=== PATIENT | female | born 1955 | race Caucasian/White ===

== ENCOUNTER 2016-07-21 01:53 | Inpatient (IN) ==
[2016-07-21 02:28] LABS: ABG Base Excess -1.2 MMOL/L (-2.5-2.5); ABG HCO3 23.2 MMOL/L (20-26); ABG Oxygen Saturation 79.8 % (95-100); ABG PCO2 37.1 MM HG (35-48); ABG PH 7.405 (7.35-7.45); ABG PO2 45.3 MM HG (80-95); ABG TCO2 21.6 MMOL/L (23-27); Allen Test Positive
[2016-07-21] MEDS ORDERED: NITROGLYCERIN SL 0.4 MG TABLET SL STA (02:43)
[2016-07-21] MEDS ORDERED: ONDANSETRON 4 MG/2 ML VIAL IV STA (02:43)
[2016-07-21] MEDS ORDERED: cloNIDine 0.1 MG TABLET PO STA (02:47)
[2016-07-21] MEDS ORDERED: cloNIDine 0.1 MG TABLET ONE (02:48)
[2016-07-21] MEDS ORDERED: ONDANSETRON 4 MG/2 ML VIAL ONE (02:48)
[2016-07-21] MEDS ORDERED: NITROGLYCERIN SL 0.4 MG TABLET SL ONE (02:49)
[2016-07-21 02:53] LABS: Basophils % 0.4 % (0.0-0.8); Eosinophils # 0.2 10*3/uL (0.0-0.87); Eosinophils % 2.1 % (0.00-10.9); Hematocrit 26.2 VOL% (35.7-47.0); Hemoglobin 8.6 GM/DL (12.0-16.0); Immature Granulocytes % 0.9 %; Immature Granulocytes Absolute 0.09 #; Lymphocytes # 1.2 10*3/uL (1.4-4.0); Lymphocytes % 11.7 % (21.3-54.2); Mean Corpuscular HGB Conc 32.8 GM/DL (32-36); Mean Corpuscular Hemoglobin 35 PG (27-34); Mean Corpuscular Volume 105.2 FL (87-102); Monocytes # 0.6 10*3/uL (0.11-0.8); Neutrophils # 8.1 10*3/uL (1.4-7.4); Neutrophils % 78.9 % (38.7-73.9); Platelet Count 103 T/CUMM (130-400); Red Blood Count 2.49 MC/CUMM (3.8-5.5); White Blood Count 10.2 T/CUMM (4-12)
[2016-07-21 03:04] LABS: Alanine Aminotransferase 26 U/L (13-56); Albumin 3.8 G/DL (3.4-5.0); Alkaline Phosphatase 49 U/L (45-117); Aspartate Amino Transferase 19 U/L (0-37); Blood Urea Nitrogen 60 MG/DL (7-18); Calcium 6.9 MG/DL (8.5-10.1); Glucose 101 MG/DL (74-106); Osmolality,Calculated 289.8 MOS/KG (273-304); Potassium 4.5 MMOL/L (3.5-5.1); Sodium 137 MMOL/L (136-145); Total Protein 6.7 G/DL (6.4-8.3); Troponin I Only < 0.015 NG/ML (0.00-0.045)
--- NOTE | 2016-07-21 03:04 | Emergency Department Note ---
Maximus Sabillon Manpreet, am scribing for, and in the presence of, Nathan Mina MD 02:29. Leopoldo Sabillon Robert M, MD, personally performed the services described in this documentation, ascribed by Myron Stroud in my presence, and it is both accurate and complete . Arrival - Arrival Chief Complaint: Shortness of Breath Stated Complaint: shortness of breath ED Nursing Triage Note: Patient to room via ems. Patient states she went to bed last night short of breath and woke up a 1 am short of breath. She states that she is in renal failure and that she needs dialysis. She states that [place] [facility] . She states she knows today is wednesday but she can't wait till on. Patient also states she needs some nitro on her chest. Mode of Arrival: Stretcher Limitations: No Limitations Source: Patient Time Seen by Provider: 07/21/16 01:57 - History of Present Illness HPI Narrative: Pt is a 61 y/o female with PMHx of CAD, PVD, HTN, COPD, and PNA, who reports to ED with CC of SOB and jaw pain since earlier tonight. Pt states she is on home O2 but it did not help with breathing. Pt denies CP and N/V/D. No other complaints/pains reported to ED. Onset (ago): hour(s) Consistency: constant Severity: moderate Severity scale (1-10): 3 Allergies/Adverse Reactions: Allergies Allergy/AdvReac Type Severity Reaction Status Date / Time Cefaclor [From Ceclor] Allergy ITCHING Verified 07/21/16 02:09 topiramate [From Topamax] AdvReac Agitated Verified 07/21/16 02:09 Home Medications: Home Medications Medication Instructions Recorded Confirmed Type Aspirin [Ecotrin] 81 mg PO DAILY 09/21/14 01/16/16 History Diazepam Tab [Valium Tab] 1 mg PO TID 09/21/14 01/16/16 History Docusate Sodium [Colace] 100 mg PO BID 09/21/14 01/16/16 History Ezetimibe [Zetia] 10 mg PO BEDTIME 09/21/14 01/16/16 History Gabapentin Cap/Tab [Neurontin 600 mg PO BID 09/21/14 01/16/16 History Cap/Tab] Levothyroxine Tab [Synthroid Tab] 250 mcg PO DAILY@0700 09/21/14 01/16/16 History [place]-3 Acid Ethyl Esters [Lovaza] 2 capsule PO BID 09/21/14 01/16/16 History Venlafaxine [Effexor] 75 mg PO DAILY 09/21/14 01/16/16 History HYDROcodone/ACETAMIN 10-325 [[place] 1 tablet PO Q6H 02/06/15 01/16/16 History 10-325] Calcitriol [Rocaltrol] 0.5 mcg PO DAILY #30 capsule 08/22/15 01/16/16 Rx Calcium Acetate [Phoslo] 1,334 mg PO TID W/MEALS #90 capsule 08/22/15 01/16/16 Rx Isosorbide Dinitrate [Isordil] 20 mg PO TID #90 tablet 08/22/15 01/16/16 Rx Insulin Regular Conc U-500 See Protocol SUBCUT .PER PUMP 09/30/15 01/16/16 History [HumuLIN R U-500 (CONCENTRATED)] Ondansetron Tab [Zofran Tab] 4 mg PO BID 09/30/15 01/16/16 History Tizanidine HCl [Zanaflex] 8 mg PO BID 09/30/15 01/16/16 History Rosuvastatin [Crestor] 20 mg PO BEDTIME 10/09/15 01/16/16 History [place] 3 Acid Ethyl Esters [Lovaza] 1 gm PO BID 01/11/16 01/16/16 History Pantoprazole Tab [Protonix Tab] 40 mg PO DAILY #30 tablet 01/13/16 01/16/16 Rx hydrALAZINE TAB [Apresoline Tab] 37.5 mg PO TID 01/16/16 01/16/16 History Carvedilol [Coreg] 25 mg PO BID #60 tablet 01/19/16 Rx Linaclotide [Linzess] 145 mcg PO AC BREAKFAST #30 capsule 01/19/16 Rx NIFEdipine XL TAB [Procardia Xl] 30 mg PO BID #60 tablet 01/19/16 Rx Polyethylene Glycol Powder 17 gm PO DAILY PRN #0 powder 01/19/16 Rx [Miralax] Review of System - Review of System 12 point system: reviewed and no additional remarkable complaints except as stated - Review of System Constitutional: Absent: chills, fever Respiratory: Present: respiratory distress. Absent: cough Cardiovascular: Absent: chest pain Gastrointestinal: Absent: abdominal pain, nausea, vomiting, diarrhea Musculoskeletal: Present: other (Jaw pain). 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), Eye Problem (MENIERES) Endocrine: History of: Diabetes Mellitus (IDDM), Thyroid Disorder (follicular ca ) No history of: Diabetes Mellitus (NIDDM) Rheumatology: History of;: Rheumatoid Arthritis Respiratory: History of: COPD, Pneumonia, Respiratory Problems Renal: History of: Dialysis, Renal Failure Gastrointestinal: History of: Liver Problems (MARINO; reported "esophageal spasms " which responded nitroglycerin), Pancreatitis (X3), GI Problems Hematology: History of: Anemia Other: History of: Cancer (P-RE OVARIAN THYROID) - Surgical History Cardiac Surgeries: Sugical HX of: Cardiac Catheterization (x 3 left pop) HEENT Surgeries: Surgical HX of: Eye Surgery (DIABETIC BLEEDS CATARACTS), Thyroid Surgery, Tonsilectomy & Adenoidectomy Abdominal Surgeries: Surgical HX of: Abdominal Surgery (LIVER BX), Cholecystectomy, Colonoscopy, EGD Reproductive Surgeries: Surgical HX of;: Gynecologic Surgery, Hysterectomy Orthopedic Surgeries: Surgical HX of;: Spinal Surgery (cervical and lumbar surg) - Family History Family History: Reports;: Family Diabetes, Family Heart Disease, Family Hypertension - Social History Smoking Status: Former smoker Frequency of Alcohol Use: None Type of Drug Use: None Exam Vital Signs: Vital Signs Temperature 97.8 F 07/21/16 02:33 Pulse Rate 93 H 07/21/16 02:33 Respiratory Rate 22 07/21/16 02:37 Blood Pressure 173/76 07/21/16 02:33 O2 Sat by Pulse Oximetry 83 L 07/21/16 02:05 - General General appearance: alert, in no apparent distress - Head Head exam: Present: atraumatic, normocephalic, normal inspection - Eye Eye exam: Present: normal appearance, PERRL, EOMI - ENT ENT exam: Present: normal exam, normal oropharynx, mucous membranes moist, TM's normal bilaterally - Neck Neck exam: Present: normal inspection, full ROM, trachea midline. Absent: tenderness - Chest Chest inspection: Present: normal inspection, symmetric chest wall rise - Respiratory Respiratory exam: Present: normal lung sounds bilaterally - Cardiovascular Cardiovascular exam: Present: regular rate, normal rhythm, normal heart sounds. Absent: murmur, rubs, gallop - Abdominal Exam Abdominal exam: Present: soft, normal bowel sounds. Absent: distention, tenderness, guarding - Extremities Exam Extremities exam: Present: normal inspection, full ROM. Absent: tenderness - Back Exam Back exam: Present: normal inspection, full ROM. Absent: tenderness - Neurological Exam Neurological exam: Present: alert, oriented X3, CN II-XII intact, reflexes normal - Psychiatric Psychiatric exam: Present: normal affect, normal mood - Skin Skin exam: Present: warm, dry, intact, normal color. Absent: pallor Course - Reevaluation(s) Reevaluation #1: The patient has recurrent bouts of symptomatic anemia. This appears to be the problem tonight. I will admit her to Dr. Schaeffer and consult Dr. Roche who seems to be her renal physician. Time: 04:11 - Consultations Consultation #1: Dr. Eleonora Elizabeth will admit the patient to Dr. Schaeffer. Time: 04:16 Results - Labs CBC & BMP: 07/21/16 02:19 07/21/16 02:19 Disposition Clinical Impression: Symptomatic anemia, Acute on chronic renal failure, ESRD (end stage renal disease) on dialysis, IDDM (insulin dependent diabetes mellitus), Hypertension Case discussed with: patient Disposition: Still a Patient Condition: Stable Time of Disposition: 04:16
[2016-07-21 03:05] LABS: INR 1.1; PT Patient Result 11.7 SECS
[2016-07-21] MEDS ORDERED: GLUCAGON 1 MG VIAL IM PRN (04:17)
[2016-07-21] MEDS ORDERED: DEXTROSE 50% 25 GM/50 ML VIAL IV PRN (04:17)
[2016-07-21] MEDS ORDERED: ONDANSETRON 4 MG/2 ML VIAL IV PRN (04:17)
[2016-07-21] MEDS ORDERED: ACETAMINOPHEN 325 MG TABLET PO PRN (04:17)
[2016-07-21] MEDS ORDERED: SODIUM CHLORIDE 0.9% 250 ML IV PRN (04:18)
--- NOTE | 2016-07-21 07:28 | XRay Report ---
Referring Physician: Nathan Mina Exam: XR chest 1V portable Date: July 21, 2016 at 1:59 AM Reason: Shortness of breath Comparison: Chest one view portable January 16, 2016 Findings: A right-sided dialysis catheter is again in place. The cardiac silhouette is again enlarged. The interstitial markings are diffusely prominent, and there are hazy opacities throughout both lungs. This is most consistent with pulmonary edema, but pneumonia is not excluded. No pneumothorax is identified, but there is likely minimal bilateral pleural fluid. The osseous structures appear stable with surgical fusion of the cervical spine. Impression: 1. Cardiomegaly. 2. There is diffuse interstitial prominence and hazy opacities throughout both lungs. This is most consistent with pulmonary edema, but pneumonia is not excluded. PROCEDURE INTERPRETED AT [facility] DEPARTMENT OF RADIOLOGY Final Report Signed by: Dr. Da Barrios
[2016-07-21] MEDS: INSULIN LISPRO 100 UNIT/ML SUBCUT SCH ×4 (08:31→20:22)
[2016-07-21] MEDS: PANTOPRAZOLE 40 MG TABLET PO SCH (09:06)
[2016-07-21] MEDS: DOCUSATE SODIUM 100 MG CAPSULE PO SCH ×2 (09:06→20:22)
[2016-07-21] MEDS ORDERED: ALBUTEROL 2.5 MG/3 ML NEB RESP TX ONE (09:43)
--- NOTE | 2016-07-21 09:45 | Internal Med History&Physical ---
Assessment and Plan (1) Acute congestive heart failure Status: Acute Assessment and plan: 61-year-old female admitted to acute care * Acute congestive heart failure. Multifactorial. Related to end-stage renal disease and fluid overload because patient has not been compliant with her fluid intake. She is also anemic. She will get dialysis this morning. * Jaw and neck pain. Will consult cardiology to evaluate. She has been followed by Dr. albrecht * Acute exacerbation of COPD. Patient will be started on nebulizer treatment and will start her on antibiotic * Insulin-dependent diabetes on insulin pump. She will continue her pump at current settings * End-stage renal disease. On dialysis * Dysuria. Will check urinalysis and cultures. * Chronic back pain. Continue treatment * Discussed with patient Current Visit: Yes (2) ESRD (end stage renal disease) on dialysis Status: Chronic Current Visit: Yes (3) Hypertension Status: Chronic Current Visit: Yes Qualifiers: Hypertension type: essential hypertension Qualified Code(s): I10 - Essential (primary) hypertension (4) IDDM (insulin dependent diabetes mellitus) Status: Chronic Current Visit: Yes (5) Acute exacerbation of chronic obstructive airways disease Status: Acute Current Visit: No (6) Anemia Status: Acute Current Visit: No (7) Chest pain Status: Acute Current Visit: No (8) Hypothyroidism Status: Chronic Current Visit: No (9) PAD (peripheral artery disease) Status: Chronic Current Visit: No History of Present Illness Chief complaint: Shortness of breath and jaw pain History of present illness: Ms. Mady Valladares is a 61 year old female with history of multiple medical problems including insulin dependent diabetes on insulin pump, hyperlipidemia, hypertension, coronary artery disease, chronic renal failure on dialysis 3 times a week. She came in early this morning with shortness of breath and pain in her neck going into her jaw. She woke up in the middle of night. She was given a nitroglycerin which helped her symptoms. She denies any chest pain now. She also had a low-grade fever yesterday. She has been drinking more fluids than she should. She denies any nausea vomiting or diarrhea. She denies any fever or chills. She gets extremely short of breath on exertion. Her urine has been foul-smelling. Patient lives alone at home. She is a former smoker Home Medications Medication Instructions Recorded Confirmed Type Aspirin [Ecotrin] 81 mg PO DAILY 09/21/14 07/21/16 History Diazepam Tab [Valium Tab] 1 mg PO TID 09/21/14 07/21/16 History Docusate Sodium [Colace] 100 mg PO BID 09/21/14 07/21/16 History Ezetimibe [Zetia] 10 mg PO BEDTIME 09/21/14 07/21/16 History Gabapentin Cap/Tab [Neurontin 600 mg PO BID 09/21/14 07/21/16 History Cap/Tab] Levothyroxine Tab [Synthroid Tab] 250 mcg PO DAILY@0700 09/21/14 07/21/16 History Venlafaxine [Effexor] 75 mg PO DAILY 09/21/14 07/21/16 History HYDROcodone/ACETAMIN 10-325 [[place] 1 tablet PO Q6H 02/06/15 07/21/16 History 10-325] Calcitriol [Rocaltrol] 0.5 mcg PO DAILY #30 capsule 08/22/15 07/21/16 Rx Calcium Acetate [Phoslo] 1,334 mg PO TID W/MEALS #90 capsule 08/22/15 07/21/16 Rx Insulin Regular Conc U-500 See Protocol SUBCUT .PER PUMP 09/30/15 07/21/16 History [HumuLIN R U-500 (CONCENTRATED)] Ondansetron Tab [Zofran Tab] 4 mg PO BID PRN 09/30/15 07/21/16 History Tizanidine HCl [Zanaflex] 2 mg PO BID 09/30/15 07/21/16 History Rosuvastatin [Crestor] 20 mg PO BEDTIME 10/09/15 07/21/16 History [place] 3 Acid Ethyl Esters [Lovaza] 1 gm PO BID 01/11/16 07/21/16 History hydrALAZINE TAB [Apresoline Tab] 37.5 mg PO TID 01/16/16 07/21/16 History Carvedilol [Coreg] 25 mg PO BID #60 tablet 01/19/16 07/21/16 Rx Linaclotide [Linzess] 145 mcg PO AC BREAKFAST #30 capsule 01/19/16 07/21/16 Rx Amlodipine Besylate 5 mg PO BID 07/21/16 07/21/16 History Isosorbide Dinitrate [Isordil] 20 mg PO BID 07/21/16 07/21/16 History Nitroglycerin [Nitroglycerin SL 0.4 mg SL Q5M PRN 07/21/16 07/21/16 History Tab] Pantoprazole Tab [Protonix Tab] 20 mg PO DAILY 07/21/16 07/21/16 History Allergies Allergy/AdvReac Type Severity Reaction Status Date / Time Cefaclor [From Ceclor] Allergy ITCHING Verified 07/21/16 02:09 topiramate [From Topamax] AdvReac Agitated Verified 07/21/16 02:09 Medical,Surgical,& Family Hx - Medical History Cardio: History of: CAD, Hypertension, PVD Psychological: History of: Depression Neurology: History of: Vertigo (MIENERE's) No history of: Seizures HEENT: History of: 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), Eye Problem (MENIERES) Endocrine: History of: Diabetes Mellitus (IDDM), Thyroid Disorder (follicular ca ) No history of: Diabetes Mellitus (NIDDM) Rheumatology: History of;: Rheumatoid Arthritis Respiratory: History of: COPD, Pneumonia, Respiratory Problems Renal: History of: Dialysis, Renal Failure Gastrointestinal: History of: Liver Problems (MARINO; reported "esophageal spasms " which responded nitroglycerin), Pancreatitis (X3), GI Problems Hematology: History of: Anemia Other: History of: Cancer (P-RE OVARIAN THYROID) - Surgical History Cardiac Surgeries: Sugical HX of: Cardiac Catheterization (x 3 left pop) HEENT Surgeries: Surgical HX of: Eye Surgery (DIABETIC BLEEDS CATARACTS), Thyroid Surgery, Tonsilectomy & Adenoidectomy Abdominal Surgeries: Surgical HX of: Abdominal Surgery (LIVER BX), Cholecystectomy, Colonoscopy, EGD Reproductive Surgeries: Surgical HX of;: Gynecologic Surgery, Hysterectomy Orthopedic Surgeries: Surgical HX of;: Spinal Surgery (cervical and lumbar surg) - Family History Family History: Reports;: Family Diabetes, Family Heart Disease, Family Hypertension - Social History Smoking Status: Former smoker Frequency of Alcohol Use: None Type of Drug Use: None Marital Status: Single Lives With:: Alone Functional capacity: independent ambulation 12 point system: reviewed and no additional remarkable complaints except as stated (As mentioned in HPI) Exam - Constitutional Vitals: Period Temp Pulse Resp BP Sys/Matthews Pulse Ox Last 24 Hr 99.5 F 92-92 22-24 167/63 97 Exam: Examination: GENERAL: NAD. HEENT: PERRLA. EOMI. Mucous membranes are moist. NECK: Neck is supple. No JVD. No carotid bruit. No thyromegaly. CVS: Regular rate and rhythm. S1 and S2 are normal. Dialysis catheter is present in the right upper chest wall RESPIRATORY: Decreased air entry at bases with bilateral rhonchi and few rales ABDOMEN: Soft and nontender. Bowel sounds are present. No hepatosplenomegaly. Obese EXT: 1+ edema. Peripheral pulses are present. SUPPLY CLERK: Patient is awake, alert and oriented to time place and person. Cranial nerves II through XII are grossly intact. Motor strength is 4 over 5 both upper and lower extremities. SKIN: Warm and dry. MSK: No obvious deformity. Results - Labs CBC & BMP: 07/21/16 02:19 07/21/16 02:19 Lab Results: I have reviewed the past 24 hour labs
[2016-07-21] MEDS ORDERED: NITROGLYCERIN SL 0.4 MG TABLET SL PRN (09:51)
[2016-07-21] MEDS ORDERED: ONDANSETRON 4 MG TABLET PO PRN (09:51)
--- NOTE | 2016-07-21 10:32 | EKG Report ---
Stationary ECG Study [facility] Test Date: 07/21/2016 2:09:08 AM Pat Name: MADELINE PETERSON Department: Room: 231 Gender: F Enrollment Services Dean: RADHA : 1955 Requested by: Nathan Mina Order Number: [id number] Rom MD: ANDRES MCKEON Intervals [place] Rate: 84 P: 50 DC: 144 QRS: 77 QRSD: 102 T: 78 QT: 394 QTc: 435 Interpretive Statements SINUS RHYTHM Electronically Signed On 07-21-16 16:12:41 CDT by ANDRES MCKEON [email or web address]
[2016-07-21] MEDS: INSULIN REGULAR ** CONC 500 UNIT/ML ** 20 ML VIAL SUBCUT SCH (11:42)
[2016-07-21] MEDS ORDERED: HEPARIN 10,000 UNIT/10 ML VIAL IV PRN (13:27)
[2016-07-21] MEDS ORDERED: IRON SUCROSE 100 MG/5 ML VIAL IV ONE (13:30)
[2016-07-21 14:30] LABS: Troponin I Only 0.018 NG/ML (0.00-0.045)
[2016-07-21] MEDS ORDERED: IRON SUCROSE 100 MG/5 ML VIAL IV SCH (14:30)
[2016-07-21] MEDS: CALCIUM ACETATE 667 MG CAPSULE PO SCH ×2 (14:54→17:18)
[2016-07-21] MEDS ORDERED: hydrALAZINE 25 MG TABLET PO SCH (15:00)
[2016-07-21] MEDS: ALBUTEROL 2.5 MG/3 ML NEB RESP TX SCH (15:06)
--- NOTE | 2016-07-21 15:30 | Cardiology Consult Note ---
Assessment and Plan - Time spent with patient Time spent with patient: Greater than 30 minutes (Examination documentation chart and film reviewed) (1) Symptomatic anemia Status: Acute Current Visit: Yes (2) ESRD (end stage renal disease) on dialysis Status: Chronic Current Visit: Yes (3) Hypertension Status: Chronic Current Visit: Yes Qualifiers: Hypertension type: essential hypertension Qualified Code(s): I10 - Essential (primary) hypertension (4) IDDM (insulin dependent diabetes mellitus) Status: Chronic Current Visit: Yes (5) Dyslipidemia Status: Chronic Current Visit: No (6) Hypothyroidism Status: Chronic Current Visit: No (7) PAD (peripheral artery disease) Status: Chronic Current Visit: No History of Present Illness - Data of Consult Patient: known to practice within the last 3 years Consult date: 07/21/16 Requesting Physician: Oc Schaeffer Primary care physician: Oc Schaeffer (Sil[place] ) - Consult Narrative Reason for consult: Jaw pain neck pain shortness of breath History of present illness: Ms. Mady Valladares is a 61 year old female with end-stage renal disease long- standing diabetes and peripheral vessel disease who has been cath as recently as January 2015 at which time she had no high-grade epicardial stenosis. I saw her back in December this year which time she had symptomatic anemia. She states that when her hemoglobin is around 15 she feels good anytime and gets below 12 she gets short of breath and has chest discomfort. She is previous have been followed and treated by Dr. Edouard. She recently missed appointment with Dr. Edouard. The patient came in complaining of shortness of breath in activities daily living around her home with less than 4 metastases she also is having some jaw pain and neck pain chest 2 normal EKGs and normal cardiac biomarkers. I saw the patient as she was ending of her dialysis cycle today in the dialysis unit. She states she received 2 units and she feels better already. I reviewed her films from January 2015. She has mild RCA disease but no other high-grade cardial stenosis at that time. CC: Oc Schaeffer MD - Home Medications and Allergies Home Medications: Home Medications Medication Instructions Recorded Confirmed Type Aspirin [Ecotrin] 81 mg PO DAILY 09/21/14 07/21/16 History Diazepam Tab [Valium Tab] 1 mg PO TID 09/21/14 07/21/16 History Docusate Sodium [Colace] 100 mg PO BID 09/21/14 07/21/16 History Ezetimibe [Zetia] 10 mg PO BEDTIME 09/21/14 07/21/16 History Gabapentin Cap/Tab [Neurontin 600 mg PO BID 09/21/14 07/21/16 History Cap/Tab] Levothyroxine Tab [Synthroid Tab] 250 mcg PO DAILY@0700 09/21/14 07/21/16 History Venlafaxine [Effexor] 75 mg PO DAILY 09/21/14 07/21/16 History HYDROcodone/ACETAMIN 10-325 [[place] 1 tablet PO Q6H 02/06/15 07/21/16 History 10-325] Calcitriol [Rocaltrol] 0.5 mcg PO DAILY #30 capsule 08/22/15 07/21/16 Rx Calcium Acetate [Phoslo] 1,334 mg PO TID W/MEALS #90 capsule 08/22/15 07/21/16 Rx Insulin Regular Conc U-500 See Protocol SUBCUT .PER PUMP 09/30/15 07/21/16 History [HumuLIN R U-500 (CONCENTRATED)] Ondansetron Tab [Zofran Tab] 4 mg PO BID PRN 09/30/15 07/21/16 History Tizanidine HCl [Zanaflex] 2 mg PO BID 09/30/15 07/21/16 History Rosuvastatin [Crestor] 20 mg PO BEDTIME 10/09/15 07/21/16 History [place] 3 Acid Ethyl Esters [Lovaza] 1 gm PO BID 01/11/16 07/21/16 History hydrALAZINE TAB [Apresoline Tab] 37.5 mg PO TID 01/16/16 07/21/16 History Carvedilol [Coreg] 25 mg PO BID #60 tablet 01/19/16 07/21/16 Rx Linaclotide [Linzess] 145 mcg PO AC BREAKFAST #30 capsule 01/19/16 07/21/16 Rx Amlodipine Besylate 5 mg PO BID 07/21/16 07/21/16 History Isosorbide Dinitrate [Isordil] 20 mg PO BID 07/21/16 07/21/16 History Nitroglycerin [Nitroglycerin SL 0.4 mg SL Q5M PRN 07/21/16 07/21/16 History Tab] Pantoprazole Tab [Protonix Tab] 20 mg PO DAILY 07/21/16 07/21/16 History Allergies/Adverse Reactions: Allergies Allergy/AdvReac Type Severity Reaction Status Date / Time Cefaclor [From Ceclor] Allergy ITCHING Verified 07/21/16 02:09 topiramate [From Topamax] AdvReac Agitated Verified 07/21/16 02:09 - Constitutional Constitutional: Present: daytime sleepiness. Absent: anorexia - Cardiovascular Cardiovascular: Present: dyspnea, dyspnea on exertion, other (Jaw and neck pain they are not necessarily related to exertion have occurred at rest). Absent: chest pain at rest, chest pain with activity - Respiratory Respiratory: Present: dyspnea, dyspnea on exertion - Gastrointestinal Gastrointestinal: Present: abdominal pain - Musculoskeletal Musculoskeletal: Present: back pain - Neurological Neurological: Absent: convulsions - Psychiatric Psychiatric: Absent: anxiety, depression - Endocrine Endocrine: Absent: cold intolerance, heat intolerance - Hematologic/Lymphatic Hematologic/Lymphatic: Absent: easy bleeding, easy bruising Medical,Surgical,& Family Hx - Medical History Cardio: History of: CAD (Mild nonobstructive disease in 2014, January), Hypertension, PVD Psychological: History of: Depression Neurology: History of: Vertigo (MIENERE's) No history of: Seizures HEENT: History of: 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), Eye Problem (MENIERES) Endocrine: History of: Diabetes Mellitus (IDDM), Thyroid Disorder (follicular ca ) No history of: Diabetes Mellitus (NIDDM) Rheumatology: History of;: Rheumatoid Arthritis Respiratory: History of: COPD, Pneumonia, Respiratory Problems Renal: History of: Dialysis, Renal Failure Gastrointestinal: History of: Liver Problems (MARINO; reported "esophageal spasms " which responded nitroglycerin), Pancreatitis (X3), GI Problems Hematology: History of: Anemia Other: History of: Cancer (P-RE OVARIAN THYROID) - Surgical History Cardiac Surgeries: Sugical HX of: Cardiac Catheterization (x 3 left pop) HEENT Surgeries: Surgical HX of: Eye Surgery (DIABETIC BLEEDS CATARACTS), Thyroid Surgery, Tonsilectomy & Adenoidectomy Abdominal Surgeries: Surgical HX of: Abdominal Surgery (LIVER BX), Cholecystectomy, Colonoscopy, EGD Reproductive Surgeries: Surgical HX of;: Gynecologic Surgery, Hysterectomy Orthopedic Surgeries: Surgical HX of;: Spinal Surgery (cervical and lumbar surg) - Family History Family History: Reports;: Family Diabetes, Family Heart Disease, Family Hypertension - Social History Smoking Status: Former smoker Frequency of Alcohol Use: None Type of Drug Use: None Lives With:: Alone Functional capacity: independent ambulation Physical Examination Vital Signs Temp Pulse Resp BP Pulse Ox 97.8 F 93 H 24 173/76 83 L 07/21/16 02:05 07/21/16 02:05 07/21/16 02:05 07/21/16 02:05 07/21/16 02:05 General: Present: Appears Well HEENT: Present: Pallor Neck: Present: Supple Neck, Midline Trachea Cardiac: Present: Reg Rate and Rhythm, S1/S2, S4 Lungs: Present: Normal Exam Neuro: Present: Cranial Nerve 2-12 Intact Abdomen: Present: Soft, Active Bowel Sounds Skin: Present: Clear Extremities: Absent: Edema Result/EKG - Labs CBC & BMP: 07/21/16 02:19 07/21/16 02:19 Labs: Laboratory Results - last 24 hr 07/21/16 07/21/16 07/21/16 04:18 07:14 13:40 POC Glucose 122 H Total Creatine Kinase 77 CK-MB (CK-2) 1.3 Troponin I 0.018 Blood Type A POSITIVE Antibody Screen Negative Crossmatch See Detail - EKG EKG results: interpreted by me, WNL
[2016-07-21] MEDS: LEVOFLOXACIN 500 MG TABLET PO SCH (16:18)
[2016-07-21] MEDS: CARVEDILOL 25 MG TABLET PO SCH (17:18)
[2016-07-21 18:40] LABS: Troponin I Only < 0.015 NG/ML (0.00-0.045)
[2016-07-21] MEDS: DIAZEPAM 2 MG TABLET PO PRN (18:40)
[2016-07-21] MEDS: amLODIPine 5 MG TABLET PO SCH (20:22)
[2016-07-21] MEDS: GABAPENTIN 600 MG TABLET PO SCH (20:22)
[2016-07-21] MEDS: ISOSORBIDE DINITRATE 20 MG TABLET PO SCH (20:22)
[2016-07-21] MEDS: OMEGA 3 ACID ETHYL ESTERS 1 GM CAPSULE PO SCH (20:22)
[2016-07-21] MEDS: tiZANidine 4 MG TABLET PO SCH (20:23)
[2016-07-21] MEDS ORDERED: DOCUSATE SODIUM 100 MG CAPSULE PO SCH (21:00)
[2016-07-21] MEDS ORDERED: EZETIMIBE 10 MG TABLET PO SCH (21:00)
[2016-07-21] MEDS ORDERED: ROSUVASTATIN 20 MG TABLET PO SCH (21:00)
--- NOTE | 2016-07-21 21:23 | Nephrology Consult Note ---
History of Present Illness Chief complaint: SOB History of present illness: Ms. Mady aVlladares is a 61 year old female with ESRD who presented with a several hour history of shortness of breath. She reports neck pain which radiated to her left shoulder. No palpitations. She is seen during dialysis. Home Medications Medication Instructions Recorded Confirmed Type Aspirin [Ecotrin] 81 mg PO DAILY 09/21/14 07/21/16 History Diazepam Tab [Valium Tab] 1 mg PO TID 09/21/14 07/21/16 History Docusate Sodium [Colace] 100 mg PO BID 09/21/14 07/21/16 History Ezetimibe [Zetia] 10 mg PO BEDTIME 09/21/14 07/21/16 History Gabapentin Cap/Tab [Neurontin 600 mg PO BID 09/21/14 07/21/16 History Cap/Tab] Levothyroxine Tab [Synthroid Tab] 250 mcg PO DAILY@0700 09/21/14 07/21/16 History Venlafaxine [Effexor] 75 mg PO DAILY 09/21/14 07/21/16 History HYDROcodone/ACETAMIN 10-325 [[place] 1 tablet PO Q6H 02/06/15 07/21/16 History 10-325] Calcitriol [Rocaltrol] 0.5 mcg PO DAILY #30 capsule 08/22/15 07/21/16 Rx Calcium Acetate [Phoslo] 1,334 mg PO TID W/MEALS #90 capsule 08/22/15 07/21/16 Rx Insulin Regular Conc U-500 See Protocol SUBCUT .PER PUMP 09/30/15 07/21/16 History [HumuLIN R U-500 (CONCENTRATED)] Ondansetron Tab [Zofran Tab] 4 mg PO BID PRN 09/30/15 07/21/16 History Tizanidine HCl [Zanaflex] 2 mg PO BID 09/30/15 07/21/16 History Rosuvastatin [Crestor] 20 mg PO BEDTIME 10/09/15 07/21/16 History [place] 3 Acid Ethyl Esters [Lovaza] 1 gm PO BID 01/11/16 07/21/16 History hydrALAZINE TAB [Apresoline Tab] 37.5 mg PO TID 01/16/16 07/21/16 History Carvedilol [Coreg] 25 mg PO BID #60 tablet 01/19/16 07/21/16 Rx Linaclotide [Linzess] 145 mcg PO AC BREAKFAST #30 capsule 01/19/16 07/21/16 Rx Amlodipine Besylate 5 mg PO BID 07/21/16 07/21/16 History Isosorbide Dinitrate [Isordil] 20 mg PO BID 07/21/16 07/21/16 History Nitroglycerin [Nitroglycerin SL 0.4 mg SL Q5M PRN 07/21/16 07/21/16 History Tab] Pantoprazole Tab [Protonix Tab] 20 mg PO DAILY 07/21/16 07/21/16 History Allergies Allergy/AdvReac Type Severity Reaction Status Date / Time Cefaclor [From Ceclor] Allergy ITCHING Verified 07/21/16 02:09 topiramate [From Topamax] AdvReac Agitated Verified 07/21/16 02:09 Medical,Surgical,& Family Hx - Medical History Cardio: History of: CAD (Mild nonobstructive disease in 2014, January), Hypertension, PVD Psychological: History of: Depression Neurology: History of: Vertigo (MIENERE's) No history of: Seizures HEENT: History of: 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), Eye Problem (MENIERES) Endocrine: History of: Diabetes Mellitus (IDDM), Thyroid Disorder (follicular ca ) No history of: Diabetes Mellitus (NIDDM) Rheumatology: History of;: Rheumatoid Arthritis Respiratory: History of: COPD, Pneumonia, Respiratory Problems Renal: History of: Dialysis, Renal Failure Gastrointestinal: History of: Liver Problems (MARINO; reported "esophageal spasms " which responded nitroglycerin), Pancreatitis (X3), GI Problems Hematology: History of: Anemia Other: History of: Cancer (P-RE OVARIAN THYROID) - Surgical History Cardiac Surgeries: Sugical HX of: Cardiac Catheterization (x 3 left pop) HEENT Surgeries: Surgical HX of: Eye Surgery (DIABETIC BLEEDS CATARACTS), Thyroid Surgery, Tonsilectomy & Adenoidectomy Abdominal Surgeries: Surgical HX of: Abdominal Surgery (LIVER BX), Cholecystectomy, Colonoscopy, EGD Reproductive Surgeries: Surgical HX of;: Gynecologic Surgery, Hysterectomy Orthopedic Surgeries: Surgical HX of;: Spinal Surgery (cervical and lumbar surg) - Family History Family History: Reports;: Family Diabetes, Family Heart Disease, Family Hypertension - Social History Smoking Status: Former smoker Frequency of Alcohol Use: None Type of Drug Use: None Review of Systems 12 point system: reviewed and no additional remarkable complaints except as stated Exam - Vital Signs Vital signs: Period Temp Pulse Resp BP Sys/Matthews Pulse Ox Last 24 Hr 99.5 F-99.9 F 77-92 16-24 167-202/63-84 93-99 Exam: Gen.: Alert and oriented x3. ENT: Pupils equal round reactive to light. EOMs intact. Mucous membranes moist. Neck: Supple. No JVD or bruit. Cardiovascular: Regular rate and rhythm. No murmur rub or gallop Lungs: Few basilar crackles Abdomen: Soft. Nontender. Positive bowel sounds. No organomegaly Extremities: 1+ edema Results - Labs CBC & BMP: 07/21/16 02:19 07/21/16 02:19 Assessment and Plan (1) ESRD (end stage renal disease) on dialysis Status: Chronic Assessment and plan: 61-year-old woman admitted with: * ESRD. Seen during dialysis * Pulmonary edema. She admits to noncompliance with fluid restriction * Diabetes mellitus * Anemia * Hypertension * Peripheral vascular disease Current Visit: Yes (2) COPD (chronic obstructive pulmonary disease) Status: Acute Current Visit: Yes (3) Hypertension Status: Chronic Current Visit: Yes Qualifiers: Hypertension type: essential hypertension Qualified Code(s): I10 - Essential (primary) hypertension (4) IDDM (insulin dependent diabetes mellitus) Status: Chronic Current Visit: Yes (5) Pulmonary edema Status: Acute Current Visit: No (6) Anemia in chronic kidney disease Status: Chronic Current Visit: No
[2016-07-22] MEDS: ALBUTEROL 2.5 MG/3 ML NEB RESP TX SCH ×2 (00:46→07:28)
[2016-07-22] MEDS: DIAZEPAM 2 MG TABLET PO PRN (02:47)
[2016-07-22] MEDS ORDERED: LEVOTHYROXINE 125 MCG TABLET PO SCH (07:00)
[2016-07-22] MEDS ORDERED: LINACLOTIDE 145 MCG CAPSULE PO SCH (07:30)
--- NOTE | 2016-07-22 08:44 | Discharge Summary ---
Hospital Course - Hospital Course Hospital Course: Patient is 61-year-old female who was admitted to acute care with shortness of breath and some neck and jaw pain. She has history of multiple medical problems including coronary artery disease, end-stage renal failure on dialysis , hypertension, diabetes on insulin pump. She has been noncompliant with her fluid intake. She did have some low-grade fever. She was admitted and was transfused 2 units yesterday during dialysis. She feels much better and wants to go home later on today after dialysis. She was evaluated by cardiology. She had a cardiac catheterization done last year. She will be continued on Levaquin 250 every other day for about 5 days Diagnosis - Discharge Diagnosis (1) Acute congestive heart failure Status: Acute (2) ESRD (end stage renal disease) on dialysis Status: Chronic (3) Hypertension Status: Chronic (4) IDDM (insulin dependent diabetes mellitus) Status: Chronic (5) Acute exacerbation of chronic obstructive airways disease Status: Acute (6) Anemia Status: Acute (7) Chest pain Status: Acute (8) Hypothyroidism Status: Chronic (9) PAD (peripheral artery disease) Status: Chronic Discharge Plan - Discharge Data Disposition: Disch To Home/Self Care Condition at Discharge: Stable Discharge Diet: advance to your usual diet, diabetic diet Activity: resume usual activities as tolerated - Discharge Medications New Levofloxacin Tab [Levaquin Tab] 250 mg PO DAILY #5 tablet Continue Ezetimibe [Zetia] 10 mg PO BEDTIME Aspirin [Ecotrin] 81 mg PO DAILY Diazepam Tab [Valium Tab] 1 mg PO TID Gabapentin Cap/Tab [Neurontin Cap/Tab] 600 mg PO BID Levothyroxine Tab [Synthroid Tab] 250 mcg PO DAILY@0700 Venlafaxine [Effexor] 75 mg PO DAILY Docusate Sodium [Colace] 100 mg PO BID HYDROcodone/ACETAMIN 10-325 [[place] 10-325] 1 tablet PO Q6H Calcitriol [Rocaltrol] 0.5 mcg PO DAILY #30 capsule Calcium Acetate [Phoslo] 1,334 mg PO TID W/MEALS #90 capsule Insulin Regular Conc U-500 [HumuLIN R U-500 (CONCENTRATED)] See Protocol SUBCUT .PER PUMP Tizanidine HCl [Zanaflex] 2 mg PO BID Ondansetron Tab [Zofran Tab] 4 mg PO BID PRN PRN Reason: Nausea Rosuvastatin [Crestor] 20 mg PO BEDTIME [place] 3 Acid Ethyl Esters [Lovaza] 1 gm PO BID hydrALAZINE TAB [Apresoline Tab] 37.5 mg PO TID Carvedilol [Coreg] 25 mg PO BID #60 tablet Linaclotide [Linzess] 145 mcg PO AC BREAKFAST #30 capsule Isosorbide Dinitrate [Isordil] 20 mg PO BID Pantoprazole Tab [Protonix Tab] 20 mg PO DAILY Nitroglycerin [Nitroglycerin SL Tab] 0.4 mg SL Q5M PRN PRN Reason: Chest Pain Amlodipine Besylate 5 mg PO BID - Follow Up or Referral - Forms/Instructions Additional Discharge Instructions: Appointment in 2 weeks in the office Exam - Constitutional Vitals: Period Temp Pulse Resp BP Sys/Matthews Pulse Ox Last 24 Hr 97.9 F-99.8 F 67-79 16-22 139-207/62-84 93-100 Exam: Examination: GENERAL: NAD. HEENT: PERRLA. EOMI. NECK: Neck is supple. CVS: Regular rate and rhythm. S1 and S2 are normal. Dialysis catheter is present in the right upper chest wall RESPIRATORY: Better air entry ABDOMEN: Soft and nontender. EXT: 1+ edema. Peripheral pulses are present. HAND DEVELOPER: Nonfocal MSK: No obvious deformity. Discharge Results Labs on day of discharge: Labs from last 24 hours 07/21/16 07/21/16 07/21/16 19:18 17:09 16:42 POC Glucose 146 H 137 H Total Creatine Kinase 70 CK-MB (CK-2) < 1.0 Troponin I < 0.015 Blood Type Antibody Screen Crossmatch 07/21/16 07/21/16 07/21/16 13:40 07:14 04:18 POC Glucose 122 H Total Creatine Kinase 77 CK-MB (CK-2) 1.3 Troponin I 0.018 Blood Type A POSITIVE Antibody Screen Negative Crossmatch See Detail DS: Provider Date of admission: 07/21/16 04:17 Primary care physician: Oc Schaeffer MD Attending physician on admission: Oc Schaeffer MD Consults: 07/21/16 08:25 Consult to [facility], Educator [CONS] Routine Reason for Homemaking Rehabilitation Consultant: Re-education 07/21/16 08:29 Consult to Physician [CONS] Routine Comment: Consulting Provider: Yaakov Roche Person Notified: KIMBERLY WILCOX Date Notified: 07/21/16 Time Notified: 08:39 07/21/16 09:42 Consult to Physician [CONS] Routine Comment: Consulting Provider: Cardiology - [facility] When should Consulting Provider be notified: Now Person Notified: MANJEET Date Notified: 07/21/16 Time Notified: 10:44 Discharging clinician: Oc Schaeffer MD
[2016-07-22] MEDS: INSULIN LISPRO 100 UNIT/ML SUBCUT SCH ×2 (08:59→11:18)
[2016-07-22] MEDS ORDERED: ASPIRIN EC 81 MG TABLET PO SCH (09:00)
[2016-07-22] MEDS ORDERED: PANTOPRAZOLE 40 MG TABLET PO SCH (09:00)
[2016-07-22] MEDS ORDERED: CALCITRIOL 0.25 MCG CAPSULE PO SCH (09:00)
[2016-07-22] MEDS ORDERED: VENLAFAXINE 75 MG TABLET PO SCH (09:00)
[2016-07-22] MEDS: GABAPENTIN 600 MG TABLET PO SCH (10:52)
[2016-07-22] MEDS: CALCIUM ACETATE 667 MG CAPSULE PO SCH ×2 (10:52→11:18)
[2016-07-22] MEDS: CARVEDILOL 25 MG TABLET PO SCH (10:53)
[2016-07-22] MEDS: amLODIPine 5 MG TABLET PO SCH (10:53)
[2016-07-22] MEDS: ISOSORBIDE DINITRATE 20 MG TABLET PO SCH (10:53)
[2016-07-22] MEDS: DOCUSATE SODIUM 100 MG CAPSULE PO SCH (10:53)
[2016-07-22] MEDS: OMEGA 3 ACID ETHYL ESTERS 1 GM CAPSULE PO SCH (10:54)
[2016-07-22] MEDS: PANTOPRAZOLE 40 MG TABLET PO SCH (10:54)
[2016-07-22] MEDS: LEVOFLOXACIN 500 MG TABLET PO SCH (10:55)
[2016-07-22] MEDS: tiZANidine 4 MG TABLET PO SCH (10:55)
[2016-07-22] MEDS: INSULIN REGULAR ** CONC 500 UNIT/ML ** 20 ML VIAL SUBCUT SCH (11:17)
[2016-07-22 14:29] VITALS: BP 143/49
--- NOTE | 2016-07-22 18:31 | Nephrology Progress Note ---
Nephrology - PN: Subj Interval history: Stable during dialysis. Shortness of breath resolved Exam (PN)-Nephrology - Vital Signs Vital signs: Period Temp Pulse Resp BP Sys/Matthews Pulse Ox Last 24 Hr 96.9 F-99.2 F 67-79 16-22 139-207/49-84 90-100 Exam: ENT: Normal Cardiovascular: Regular rate and rhythm. No murmur rub or gallop Lungs: Clear Extremities: No edema - Lab 07/21/16 02:19 07/21/16 02:19 Most recent lab results ABG pH 7.405 (7.35-7.45) 07/21/16 02:15 ABG pCO2 37.1 MM HG (35-48) 07/21/16 02:15 ABG pO2 45.3 MM HG (80-95) L 07/21/16 02:15 ABG HCO3 23.2 MMOL/L (20-26) 07/21/16 02:15 ABG O2 Saturation 79.8 % (95-100) L 07/21/16 02:15 Calcium 6.9 MG/DL (8.5-10.1) L 07/21/16 02:19 Magnesium 3.0 MG/DL (1.8-2.4) H 07/21/16 02:19 Assessment and Plan (1) ESRD (end stage renal disease) on dialysis Status: Chronic Assessment and plan: 61-year-old woman admitted with: * ESRD. Seen during dialysis * Pulmonary edema. She admits to noncompliance with fluid restriction. Resolved after dialysis. * Diabetes mellitus * Anemia * Hypertension * Peripheral vascular disease (2) COPD (chronic obstructive pulmonary disease) Status: Acute (3) Hypertension Status: Chronic Qualifiers: Hypertension type: essential hypertension Qualified Code(s): I10 - Essential (primary) hypertension (4) IDDM (insulin dependent diabetes mellitus) Status: Chronic (5) Pulmonary edema Status: Acute (6) Anemia in chronic kidney disease Status: Chronic Specialty Discharge - Follow Up or Referrals Follow up with: Oc Schaeffer MD [Primary Care Provider] - 08/06/16 2:45 pm
--- NOTE | 2016-07-27 08:54 | Physician Query Form ---
CLICK EDIT DOCUMENT TO SELECT QUERY ANSWER --> OK --> SIGN Tali Abdi RN Clinical Cardiology Coordinator W) [phone] (f) [phone] [email or web address] PROVIDERS: Make your selection(s) from the choices in EACH section by typing an "x" and enter comments in the comment section. Please use your independent medical judgment in providing your response. This request does not imply that any particular answer is desired or expected. CLINICAL INDICATORS: (Providers should not edit this section) Based on documentation of "acute CHF", PGA=[id number], Echo done 01/16/16 showed EF of 60% with Grade 1 diastolic dysfunction. Pt. is a dialysis patient. Please provide further specificity regarding CHF. TYPE: ( ) Systolic ( ) Diastolic ( ) Combined Systolic/Diastolic (x ) Other, please specify: Secondary to pulmonary edema because of noncompliance with fluid restriction ( ) Clinically unable to determine ( ) The patient does NOT have CHF COMMENTS: Use of terms such as suspected, likely, or probable (associated with a specific diagnosis that is being evaluated, monitored, or treated as if it exists) are acceptable and can be restated in the discharge summary if not ruled out. [facility] HOSPITALRudolph
== END 2016-07-22 14:38 | disposition home or self-care (01) | DRG 291 ==
LOC: EDUNIT# → EDBD → N.ED 01:53 → N.EDINP 04:17 → N.2E 04:38
PROVIDERS: ADMIT Internal Medicine; ATTEND Internal Medicine

== ENCOUNTER 2017-06-24 07:22 | Inpatient (IN) ==
[2017-06-24 08:15] LABS: Basophils % 0.1 % (0.0-0.8); Eosinophils % 0.4 % (0.00-10.9); Hematocrit 25.2 VOL% (35.7-47.0); Hemoglobin 8.5 GM/DL (12.0-16.0); Immature Granulocytes % 4.1 %; Immature Granulocytes Absolute 0.34 #; Lymphocytes # 0.4 10*3/uL (1.4-4.0); Lymphocytes % 4.8 % (21.3-54.2); Mean Corpuscular HGB Conc 33.7 GM/DL (32-36); Mean Corpuscular Hemoglobin 33 PG (27-34); Mean Corpuscular Volume 98.4 FL (87-102); Mean Platelet Volume 11.3 FL (9.6-12.0); Monocytes # 0.4 10*3/uL (0.11-0.8); Monocytes % 4.8 % (1.7-12.7); Neutrophils # 7.2 10*3/uL (1.4-7.4); Neutrophils % 85.8 % (38.7-73.9); Platelet Count 150 T/CUMM (130-400); Red Blood Count 2.56 MC/CUMM (3.8-5.5); Red Cell Distribution Width 15.4 % (9.3-17.3); White Blood Count 8.4 T/CUMM (4-12)
[2017-06-24 08:41] LABS: Band Neutrophils 3 % (0-10); Hypochromasia 1+; Lymphocytes 6 % (20-55); Polychromasia Slight; Segmented Neutrophils 86 % (50-85); Total Cells Counted 100
[2017-06-24 08:42] LABS: Macrocytosis 1+; Platelet Estimate Adequate
[2017-06-24 08:49] LABS: Alanine Aminotransferase 41 U/L (13-56); Albumin 2.5 G/DL (3.4-5.0); Alkaline Phosphatase 75 U/L (45-117); Aspartate Amino Transferase 55 U/L (0-37); Bilirubin,Total < 0.39 MG/DL (0.2-1.0); Blood Urea Nitrogen 54 MG/DL (7-18); Calcium 7.4 MG/DL (8.5-10.1); Glucose 78 MG/DL (74-106); Osmolality,Calculated 270.1 MOS/KG (273-304); Potassium 3.6 MMOL/L (3.5-5.1); Sodium 128 MMOL/L (136-145); Total Protein 6.2 G/DL (6.4-8.3)
[2017-06-24] MEDS ORDERED: ONDANSETRON 4 MG/2 ML VIAL IV PRN (09:14)
[2017-06-24] MEDS ORDERED: DEXTROSE 50% 25 GM/50 ML VIAL IV PRN (09:14)
[2017-06-24] MEDS ORDERED: ACETAMINOPHEN 325 MG TABLET PO PRN (09:14)
[2017-06-24] MEDS ORDERED: PANTOPRAZOLE 40 MG TABLET PO SCH (09:14)
[2017-06-24] MEDS ORDERED: DOCUSATE SODIUM 100 MG CAPSULE PO SCH (09:14)
[2017-06-24] MEDS ORDERED: GLUCAGON 1 MG VIAL IM PRN (09:14)
[2017-06-24 09:48] LABS: Lactic Acid 2.3 MMOL/L (0.4-2.0)
[2017-06-24] MEDS ORDERED: LOPERAMIDE 2 MG CAPSULE PO PRN (13:06)
[2017-06-24] MEDS ORDERED: tiZANidine 4 MG TABLET PO PRN (13:06)
[2017-06-24] MEDS ORDERED: diphenhydrAMINE CAP 25 MG CAPSULE PO PRN (13:06)
[2017-06-24] MEDS ORDERED: SIMETHICONE CHEW 125 MG TABLET PO PRN (13:06)
[2017-06-24] MEDS ORDERED: oxyCODONE/ACETAMINOPHEN 5-325 MG TABLET PO PRN (16:43)
[2017-06-24] MEDS ORDERED: CALCIUM ACETATE 667 MG CAPSULE PO SCH (17:00)
[2017-06-24 18:36] VITALS: BP 141/90
[2017-06-24] MEDS ORDERED: GABAPENTIN 600 MG TABLET PO SCH (21:00)
[2017-06-25] MEDS ORDERED: LISINOPRIL 2.5 MG TABLET PO SCH (09:00)
[2017-06-25] MEDS ORDERED: ROSUVASTATIN 20 MG TABLET PO SCH (09:00)
== END 2017-06-24 19:18 | disposition hospice, home (50) | DRG 85 ==
LOC: EDUNIT# → EDBD → N.ED 07:22 → N.EDINP 08:21 → N.5E 09:32
PROVIDERS: ADMIT Internal Medicine; ATTEND Internal Medicine

== ENCOUNTER 2017-11-01 11:28 | Inpatient (IN) ==
[2017-11-01] MEDS ORDERED: MORPHINE 4 MG/1 ML VIAL IV STA (12:10)
[2017-11-01] MEDS ORDERED: NITROGLYCERIN 2% OINT 1 INCH/GM PACK TOP STA (12:10)
[2017-11-01] MEDS ORDERED: ONDANSETRON 4 MG/2 ML VIAL IV STA (12:10)
[2017-11-01] MEDS ORDERED: ALUM/MAG/SIMETH/LIDO VISC 1:1 30 ML BOTTLE PO STA (12:10)
[2017-11-01] MEDS ORDERED: ASPIRIN 325 MG TABLET PO STA (12:10)
[2017-11-01 12:37] LABS: Albumin 2.9 G/DL (3.4-5.0); Bilirubin,Total 0.5 MG/DL (0.2-1.0); Calcium 9.7 MG/DL (8.5-10.1); Osmolality,Calculated 279.4 MOS/KG (273-304); Potassium 5.1 MMOL/L (3.5-5.1)
[2017-11-01 13:00] LABS: Basophils % 0.5 % (0.0-0.8); Eosinophils # 0.2 10*3/uL (0.0-0.87); Eosinophils % 3.2 % (0.00-10.9); Hematocrit 31.7 VOL% (35.7-47.0); Hemoglobin 10.2 GM/DL (12.0-16.0); Immature Granulocytes % 0.5 %; Immature Granulocytes Absolute 0.03 #; Lymphocytes # 1.2 10*3/uL (1.4-4.0); Lymphocytes % 19.5 % (21.3-54.2); Mean Corpuscular HGB Conc 32.2 GM/DL (32-36); Mean Corpuscular Hemoglobin 31 PG (27-34); Mean Corpuscular Volume 95.5 FL (87-102); Monocytes # 0.6 10*3/uL (0.11-0.8); Monocytes % 9.5 % (1.7-12.7); Neutrophils % 66.8 % (38.7-73.9); Platelet Count 152 T/CUMM (130-400); Red Blood Count 3.32 MC/CUMM (3.8-5.5); Red Cell Distribution Width 15.4 % (9.3-17.3)
[2017-11-01 13:14] LABS: PT Patient Result 10.8 SECS
[2017-11-01] MEDS ORDERED: diphenhydrAMINE CAP 25 MG CAPSULE PO PRN (15:33)
[2017-11-01] MEDS ORDERED: GLUCAGON 1 MG VIAL IM PRN (15:33)
[2017-11-01] MEDS ORDERED: MECLIZINE 25 MG TABLET PO PRN (15:33)
[2017-11-01] MEDS ORDERED: ONDANSETRON 4 MG/2 ML VIAL IV PRN (15:33)
[2017-11-01] MEDS ORDERED: MORPHINE 4 MG/1 ML VIAL IV PRN (15:33)
[2017-11-01] MEDS ORDERED: ONDANSETRON 4 MG TABLET PO PRN (15:33)
[2017-11-01] MEDS ORDERED: DEXTROSE 50% 25 GM/50 ML VIAL IV PRN (15:33)
[2017-11-01] MEDS ORDERED: ACETAMINOPHEN 325 MG TABLET PO PRN (15:33)
[2017-11-01] MEDS: INSULIN REGULAR 100 UNIT/ML SUBCUT SCH ×2 (16:00→21:27)
[2017-11-01] MEDS: GABAPENTIN 300 MG CAPSULE PO SCH ×2 (16:01→21:26)
[2017-11-01] MEDS: SODIUM CHLORIDE 0.9% 1,000 ML IV SCH (17:00)
[2017-11-01] MEDS: NITROGLYCERIN 2% OINT 1 INCH/GM PACK TOP SCH (18:45)
[2017-11-01] MEDS: LACTOBACILLUS ACIDOPHILUS/BULGARICUS CAPLET PO SCH (21:24)
[2017-11-01] MEDS: CALCIUM ACETATE 667 MG CAPSULE PO SCH (21:25)
[2017-11-01] MEDS: POTASSIUM CHLORIDE 20 MEQ TABLET PO SCH (21:25)
[2017-11-01] MEDS: TICAGRELOR 90 MG TABLET PO SCH (21:26)
[2017-11-01] MEDS: DOCUSATE SODIUM 100 MG CAPSULE PO SCH (21:26)
[2017-11-01] MEDS: CYCLOBENZAPRINE 10 MG TABLET PO SCH (21:26)
[2017-11-02] MEDS: NITROGLYCERIN 2% OINT 1 INCH/GM PACK TOP SCH ×4 (00:27→17:38)
[2017-11-02 04:05] LABS: Basophils % 0.6 % (0.0-0.8); Eosinophils # 0.2 10*3/uL (0.0-0.87); Eosinophils % 3.1 % (0.00-10.9); Hematocrit 33.2 VOL% (35.7-47.0); Hemoglobin 10.1 GM/DL (12.0-16.0); Immature Granulocytes % 0.5 %; Immature Granulocytes Absolute 0.03 #; Lymphocytes # 1.4 10*3/uL (1.4-4.0); Lymphocytes % 21.1 % (21.3-54.2); Mean Corpuscular HGB Conc 30.4 GM/DL (32-36); Mean Corpuscular Hemoglobin 30 PG (27-34); Mean Corpuscular Volume 98.8 FL (87-102); Mean Platelet Volume 10.8 FL (9.6-12.0); Monocytes # 0.5 10*3/uL (0.11-0.8); Neutrophils # 4.3 10*3/uL (1.4-7.4); Neutrophils % 66.7 % (38.7-73.9); Platelet Count 156 T/CUMM (130-400); Red Blood Count 3.36 MC/CUMM (3.8-5.5); Red Cell Distribution Width 15.4 % (9.3-17.3); White Blood Count 6.4 T/CUMM (4-12)
[2017-11-02 04:23] LABS: Bilirubin,Total 0.7 MG/DL (0.2-1.0); Calcium 9.5 MG/DL (8.5-10.1); Potassium 5.8 MMOL/L (3.5-5.1); Total Protein 6.9 G/DL (6.4-8.3); VLDL CHOLESTEROL 63.4 MG/DL
[2017-11-02] MEDS ORDERED: REGADENOSON 0.4 MG/5 ML SYRINGE IV ONE (08:21)
[2017-11-02] MEDS: INSULIN REGULAR 100 UNIT/ML SUBCUT SCH (08:21)
[2017-11-02] MEDS ORDERED: PHENAZOPYRIDINE 95 MG TABLET PO PRN (08:25)
[2017-11-02] MEDS ORDERED: FLUCONAZOLE 100 MG TABLET PO ONE (08:27)
[2017-11-02] MEDS: POTASSIUM CHLORIDE 20 MEQ TABLET PO SCH ×2 (08:50→21:12)
[2017-11-02] MEDS: TICAGRELOR 90 MG TABLET PO SCH ×2 (10:46→21:12)
[2017-11-02] MEDS: FERROUS SULFATE 325 MG TABLET PO SCH (10:46)
[2017-11-02] MEDS: FOLIC ACID 1 MG TABLET PO SCH (10:46)
[2017-11-02] MEDS: ASPIRIN EC 325 MG TABLET PO SCH (10:46)
[2017-11-02] MEDS: MULTIVITAMIN (CENTRUM) TABLET PO SCH (10:46)
[2017-11-02] MEDS: CYCLOBENZAPRINE 10 MG TABLET PO SCH ×2 (10:47→21:12)
[2017-11-02] MEDS: DOCUSATE SODIUM 100 MG CAPSULE PO SCH ×2 (10:47→21:12)
[2017-11-02] MEDS: GABAPENTIN 300 MG CAPSULE PO SCH ×3 (10:47→21:12)
[2017-11-02] MEDS: LACTOBACILLUS ACIDOPHILUS/BULGARICUS CAPLET PO SCH ×2 (10:48→21:12)
[2017-11-02] MEDS: VENLAFAXINE XR 75 MG CAPSULE PO SCH (10:48)
[2017-11-02] MEDS: CALCIUM ACETATE 667 MG CAPSULE PO SCH ×2 (10:48→21:12)
[2017-11-02] MEDS: amLODIPine 10 MG TABLET PO SCH (10:48)
[2017-11-02] MEDS: traMADol 50 MG TABLET PO PRN ×2 (10:52→21:18)
[2017-11-02] MEDS: INSULIN LISPRO 100 UNIT/ML SUBCUT SCH ×3 (14:23→21:21)
[2017-11-02] MEDS: SODIUM CHLORIDE 0.9% 1,000 ML IV SCH (15:02)
[2017-11-02 17:16] LABS: Hepatitis A Ab IgM Quant 0.26 Index; Hepatitis A Ab IgM Result Negative (Negative); Hepatitis B Core IgM Quant < 0.05 Index; Hepatitis B Core IgM Result Negative (Negative); Hepatitis B Surface Ag Quant < 0.10 Index; Hepatitis B Surface Ag Result Negative (Negative); Hepatitis C Virus Ab Quant < 0.02 Index; Hepatitis C Virus Ab Result Negative (Negative)
[2017-11-02] MEDS: DESITIN 4OZ/NYSTATIN 15 GRAM MIXTURE PASTE TOP SCH (21:11)
[2017-11-03] MEDS: NITROGLYCERIN 2% OINT 1 INCH/GM PACK TOP SCH ×2 (01:23→05:01)
[2017-11-03 04:27] LABS: Basophils % 0.6 % (0.0-0.8); Eosinophils # 0.2 10*3/uL (0.0-0.87); Eosinophils % 2.2 % (0.00-10.9); Hematocrit 34.3 VOL% (35.7-47.0); Hemoglobin 10.8 GM/DL (12.0-16.0); Immature Granulocytes % 0.4 %; Immature Granulocytes Absolute 0.03 #; Lymphocytes # 1.7 10*3/uL (1.4-4.0); Lymphocytes % 25.6 % (21.3-54.2); Mean Corpuscular HGB Conc 31.5 GM/DL (32-36); Mean Corpuscular Hemoglobin 30 PG (27-34); Mean Corpuscular Volume 96.6 FL (87-102); Mean Platelet Volume 10.9 FL (9.6-12.0); Monocytes # 0.6 10*3/uL (0.11-0.8); Monocytes % 8.6 % (1.7-12.7); Neutrophils # 4.2 10*3/uL (1.4-7.4); Neutrophils % 62.6 % (38.7-73.9); Platelet Count 162 T/CUMM (130-400); Red Blood Count 3.55 MC/CUMM (3.8-5.5); White Blood Count 6.7 T/CUMM (4-12)
[2017-11-03 05:13] LABS: Calcium 9.8 MG/DL (8.5-10.1); Osmolality,Calculated 272.1 MOS/KG (273-304); Potassium 4.7 MMOL/L (3.5-5.1)
[2017-11-03] MEDS: MULTIVITAMIN (CENTRUM) TABLET PO SCH (09:08)
[2017-11-03] MEDS: INSULIN LISPRO 100 UNIT/ML SUBCUT SCH ×2 (09:08→12:07)
[2017-11-03] MEDS: CYCLOBENZAPRINE 10 MG TABLET PO SCH (09:09)
[2017-11-03] MEDS: VENLAFAXINE XR 75 MG CAPSULE PO SCH (09:09)
[2017-11-03] MEDS: CALCIUM ACETATE 667 MG CAPSULE PO SCH (09:09)
[2017-11-03] MEDS: FOLIC ACID 1 MG TABLET PO SCH (09:09)
[2017-11-03] MEDS: LACTOBACILLUS ACIDOPHILUS/BULGARICUS CAPLET PO SCH (09:09)
[2017-11-03] MEDS: ASPIRIN EC 325 MG TABLET PO SCH (09:09)
[2017-11-03] MEDS: POTASSIUM CHLORIDE 20 MEQ TABLET PO SCH (09:11)
[2017-11-03] MEDS: amLODIPine 10 MG TABLET PO SCH (09:12)
[2017-11-03] MEDS: TICAGRELOR 90 MG TABLET PO SCH (09:12)
[2017-11-03] MEDS: GABAPENTIN 300 MG CAPSULE PO SCH (09:12)
[2017-11-03] MEDS: DOCUSATE SODIUM 100 MG CAPSULE PO SCH (09:12)
[2017-11-03] MEDS: FERROUS SULFATE 325 MG TABLET PO SCH (09:12)
[2017-11-03] MEDS: traMADol 50 MG TABLET PO PRN (09:23)
[2017-11-03] MEDS: DESITIN 4OZ/NYSTATIN 15 GRAM MIXTURE PASTE TOP SCH (09:33)
[2017-11-03 12:19] VITALS: BP 186/82
== END 2017-11-03 14:03 | DRG 391 ==
LOC: EDUNIT# → N.ED 11:28 → N.EDINP 14:06 → N.TELES 19:16
PROVIDERS: ADMIT Internal Medicine; ATTEND Internal Medicine

== ENCOUNTER 2017-11-25 17:34 | Inpatient (IN) ==
[2017-11-25 18:55] LABS: Eosinophils # 0.1 10*3/uL (0.0-0.87); Hematocrit 32.7 VOL% (35.7-47.0); Hemoglobin 10.5 GM/DL (12.0-16.0); Immature Granulocytes % 0.5 %; Immature Granulocytes Absolute 0.02 #; Lymphocytes % 25.7 % (21.3-54.2); Mean Corpuscular HGB Conc 32.1 GM/DL (32-36); Mean Corpuscular Hemoglobin 31 PG (27-34); Mean Corpuscular Volume 96.5 FL (87-102); Mean Platelet Volume 10.4 FL (9.6-12.0); Monocytes # 0.3 10*3/uL (0.11-0.8); Monocytes % 6.9 % (1.7-12.7); Neutrophils # 2.6 10*3/uL (1.4-7.4); Neutrophils % 63.9 % (38.7-73.9); Platelet Count 126 T/CUMM (130-400); Red Blood Count 3.39 MC/CUMM (3.8-5.5); Red Cell Distribution Width 14.6 % (9.3-17.3)
[2017-11-25 19:22] LABS: Bilirubin,Total 0.5 MG/DL (0.2-1.0); Osmolality,Calculated 267.1 MOS/KG (273-304); Potassium 4.8 MMOL/L (3.5-5.1); Total Protein 7.3 G/DL (6.4-8.3)
[2017-11-25] MEDS ORDERED: ONDANSETRON 4 MG/2 ML VIAL IV PRN (19:34)
[2017-11-25] MEDS ORDERED: ACETAMINOPHEN 500 MG TABLET PO PRN (19:34)
[2017-11-25] MEDS ORDERED: DEXTROSE 50% 25 GM/50 ML VIAL IV PRN (19:34)
[2017-11-25] MEDS ORDERED: GLUCAGON 1 MG VIAL IM PRN (19:34)
[2017-11-25 19:46] LABS: PT Patient Result 10.8 SECS; Partial Thromboplastin Time 27.3 SECS (0-40)
[2017-11-25 19:53] LABS: Hypochromasia 1+; Platelet Estimate Normal; Polychromasia Few
[2017-11-25 20:00] LABS: Apearance,Urine CLEAR (Clear); Bilirubin,Urine Negative (Negative); Blood, Urine Negative (Negative); Glucose,Urine (UA) 50 mg/dL (Negative); Hyaline Casts,Urine 1 /LPF (0-3); Ketones,Urine Negative (Negative); Nitrite,Urine Negative (Negative); Protein,Urine >=500 MG/DL; RBC,Urine 1 /HPF (0-4); Squamous Epithelial Cell,Urine Occasional /HPF (0-10); Urine Color Yellow (Yellow); Urine Urobilinogen < 2.0 EU/DL (0.2-1.0); WBC,Urine 2 /HPF (0-6)
[2017-11-25 21:12] LABS: Sedimentation Rate-Westergren 65 MM/HR (0-30)
[2017-11-25] MEDS: GABAPENTIN 300 MG CAPSULE PO SCH (21:15)
[2017-11-25] MEDS: TICAGRELOR 90 MG TABLET PO SCH ×2 (21:15→21:17)
[2017-11-25] MEDS: traMADol 50 MG TABLET PO PRN (21:40)
[2017-11-25] MEDS: INSULIN REGULAR 100 UNIT/ML SUBCUT SCH (23:09)
[2017-11-25] MEDS: INSULIN GLARGINE 100 UNIT/ML SUBCUT SCH (23:20)
[2017-11-26] MEDS: traMADol 50 MG TABLET PO PRN (05:20)
[2017-11-26] MEDS: INSULIN REGULAR 100 UNIT/ML SUBCUT SCH ×4 (08:19→20:27)
[2017-11-26] MEDS ORDERED: ONDANSETRON 4 MG TABLET PO PRN (08:34)
[2017-11-26] MEDS ORDERED: DIPHENHYDRAMINE HCL 25 MG PO PRN (08:34)
[2017-11-26] MEDS ORDERED: MECLIZINE 25 MG TABLET PO PRN (08:34)
[2017-11-26] MEDS ORDERED: POLYVINYL ALCOHOL 1.4% OPH SOLN 15 ML BOTTLE BOTH EYES PRN (08:34)
[2017-11-26] MEDS ORDERED: traMADol 50 MG TABLET PO PRN (08:34)
[2017-11-26] MEDS: PANTOPRAZOLE 40 MG TABLET PO SCH (08:57)
[2017-11-26] MEDS: amLODIPine 10 MG TABLET PO SCH (08:57)
[2017-11-26] MEDS: TICAGRELOR 90 MG TABLET PO SCH (08:57)
[2017-11-26] MEDS: GABAPENTIN 300 MG CAPSULE PO SCH ×3 (08:57→21:30)
[2017-11-26] MEDS: VENLAFAXINE XR 75 MG CAPSULE PO SCH (08:57)
[2017-11-26] MEDS ORDERED: LACTOBACILLUS ACIDOPHILUS PO SCH (09:00)
[2017-11-26] MEDS ORDERED: VENLAFAXINE XR 75 MG CAPSULE PO SCH (09:00)
[2017-11-26] MEDS ORDERED: TICAGRELOR 90 MG TABLET PO SCH (09:00)
[2017-11-26] MEDS ORDERED: POTASSIUM CHLORIDE 20 MEQ TABLET PO SCH (09:00)
[2017-11-26] MEDS ORDERED: NON-FORMULARY MEDICATION (Multivitamin [Multivitamins] 1 EACH) PO SCH (09:00)
[2017-11-26] MEDS: ASPIRIN EC 81 MG TABLET PO SCH (10:05)
[2017-11-26] MEDS: MULTIVITAMIN (CENTRUM) TABLET PO SCH (10:06)
[2017-11-26] MEDS: LACTOBACILLUS ACIDOPHILUS/BULGARICUS CAPLET PO SCH ×2 (10:06→21:31)
[2017-11-26] MEDS: LEVOTHYROXINE 175 MCG TABLET PO SCH (10:06)
[2017-11-26] MEDS: cloNIDine 0.3 MG/24 HR PATCH TRANSDERM SCH (10:06)
[2017-11-26] MEDS: FOLIC ACID 1 MG TABLET PO SCH (10:06)
[2017-11-26] MEDS: CALCIUM ACETATE 667 MG CAPSULE PO SCH ×2 (10:06→21:30)
[2017-11-26] MEDS: FERROUS SULFATE 325 MG TABLET PO SCH (10:06)
[2017-11-26] MEDS: CYCLOBENZAPRINE 10 MG TABLET PO SCH ×2 (10:06→21:30)
[2017-11-26] MEDS: oxyCODONE/ACETAMINOPHEN 5-325 MG TABLET PO PRN ×2 (11:54→18:28)
[2017-11-26] MEDS: ZINC OXIDE PASTE 113 GM TUBE TOP SCH ×2 (15:05→21:31)
[2017-11-26] MEDS ORDERED: VANCOMYCIN INJ 750 MG in SODIUM CHLORIDE 0.9% 250 ML IV PRN (15:39)
[2017-11-26] MEDS ORDERED: VANCOMYCIN INJ 1,750 MG in SODIUM CHLORIDE 0.9% 500 ML IV ONE (17:00)
[2017-11-26] MEDS: INSULIN GLARGINE 100 UNIT/ML SUBCUT SCH (20:27)
[2017-11-26] MEDS: MELATONIN 3 MG TABLET PO SCH (21:30)
[2017-11-27] MEDS ORDERED: VANCOMYCIN INJ 1,750 MG in SODIUM CHLORIDE 0.9% 500 ML IV ONE (09:00)
[2017-11-27] MEDS: amLODIPine 10 MG TABLET PO SCH (09:12)
[2017-11-27] MEDS: GABAPENTIN 300 MG CAPSULE PO SCH ×3 (09:12→20:46)
[2017-11-27] MEDS: PANTOPRAZOLE 40 MG TABLET PO SCH (09:12)
[2017-11-27] MEDS: LEVOTHYROXINE 175 MCG TABLET PO SCH (09:12)
[2017-11-27] MEDS: CYCLOBENZAPRINE 10 MG TABLET PO SCH ×2 (09:12→20:47)
[2017-11-27] MEDS: MULTIVITAMIN (CENTRUM) TABLET PO SCH (09:12)
[2017-11-27] MEDS: FOLIC ACID 1 MG TABLET PO SCH (09:12)
[2017-11-27] MEDS: VENLAFAXINE XR 75 MG CAPSULE PO SCH (09:12)
[2017-11-27] MEDS: LACTOBACILLUS ACIDOPHILUS/BULGARICUS CAPLET PO SCH ×2 (09:12→20:46)
[2017-11-27] MEDS: CALCIUM ACETATE 667 MG CAPSULE PO SCH ×2 (09:12→20:46)
[2017-11-27] MEDS: FERROUS SULFATE 325 MG TABLET PO SCH (09:12)
[2017-11-27] MEDS: ASPIRIN EC 81 MG TABLET PO SCH (09:12)
[2017-11-27] MEDS: INSULIN REGULAR 100 UNIT/ML SUBCUT SCH ×4 (09:13→20:45)
[2017-11-27] MEDS: ZINC OXIDE PASTE 113 GM TUBE TOP SCH ×2 (09:13→20:47)
[2017-11-27] MEDS: oxyCODONE/ACETAMINOPHEN 5-325 MG TABLET PO PRN ×3 (09:59→20:47)
[2017-11-27] MEDS: INSULIN GLARGINE 100 UNIT/ML SUBCUT SCH (20:46)
[2017-11-27] MEDS: MELATONIN 3 MG TABLET PO SCH (20:46)
[2017-11-28] MEDS: oxyCODONE/ACETAMINOPHEN 5-325 MG TABLET PO PRN ×4 (03:07→22:37)
[2017-11-28 04:59] LABS: Basophils % 0.7 % (0.0-0.8); Eosinophils # 0.2 10*3/uL (0.0-0.87); Eosinophils % 2.8 % (0.00-10.9); Hematocrit 38.3 VOL% (35.7-47.0); Hemoglobin 11.6 GM/DL (12.0-16.0); Immature Granulocytes % 0.4 %; Immature Granulocytes Absolute 0.02 #; Lymphocytes # 1.4 10*3/uL (1.4-4.0); Lymphocytes % 24.8 % (21.3-54.2); Mean Corpuscular HGB Conc 30.3 GM/DL (32-36); Mean Corpuscular Hemoglobin 30 PG (27-34); Mean Corpuscular Volume 99.5 FL (87-102); Mean Platelet Volume 10.7 FL (9.6-12.0); Monocytes # 0.4 10*3/uL (0.11-0.8); Monocytes % 8.1 % (1.7-12.7); Neutrophils # 3.5 10*3/uL (1.4-7.4); Neutrophils % 63.2 % (38.7-73.9); Platelet Count 155 T/CUMM (130-400); Red Blood Count 3.85 MC/CUMM (3.8-5.5); Red Cell Distribution Width 15.8 % (9.3-17.3); White Blood Count 5.5 T/CUMM (4-12)
[2017-11-28 05:29] LABS: Calcium 9.3 MG/DL (8.5-10.1); Osmolality,Calculated 276.5 MOS/KG (273-304); Potassium 4.1 MMOL/L (3.5-5.1)
[2017-11-28] MEDS: amLODIPine 10 MG TABLET PO SCH (08:52)
[2017-11-28] MEDS: FERROUS SULFATE 325 MG TABLET PO SCH (08:52)
[2017-11-28] MEDS: FOLIC ACID 1 MG TABLET PO SCH (08:52)
[2017-11-28] MEDS: CYCLOBENZAPRINE 10 MG TABLET PO SCH ×2 (08:52→22:39)
[2017-11-28] MEDS: PANTOPRAZOLE 40 MG TABLET PO SCH (08:52)
[2017-11-28] MEDS: CALCIUM ACETATE 667 MG CAPSULE PO SCH ×2 (08:52→22:38)
[2017-11-28] MEDS: MULTIVITAMIN (CENTRUM) TABLET PO SCH (08:52)
[2017-11-28] MEDS: LEVOTHYROXINE 175 MCG TABLET PO SCH (08:52)
[2017-11-28] MEDS: ASPIRIN EC 81 MG TABLET PO SCH (08:52)
[2017-11-28] MEDS: VENLAFAXINE XR 75 MG CAPSULE PO SCH (08:52)
[2017-11-28] MEDS: LACTOBACILLUS ACIDOPHILUS/BULGARICUS CAPLET PO SCH ×2 (08:52→22:38)
[2017-11-28] MEDS: GABAPENTIN 300 MG CAPSULE PO SCH ×3 (08:52→22:38)
[2017-11-28] MEDS: INSULIN REGULAR 100 UNIT/ML SUBCUT SCH ×4 (08:53→20:47)
[2017-11-28] MEDS: ZINC OXIDE PASTE 113 GM TUBE TOP SCH ×2 (08:53→22:40)
[2017-11-28] MEDS: INSULIN GLARGINE 100 UNIT/ML SUBCUT SCH ×2 (20:47→22:49)
[2017-11-28] MEDS: MELATONIN 3 MG TABLET PO SCH (22:39)
[2017-11-29] MEDS: INSULIN REGULAR 100 UNIT/ML SUBCUT SCH ×4 (07:49→21:59)
[2017-11-29] MEDS: LACTOBACILLUS ACIDOPHILUS/BULGARICUS CAPLET PO SCH ×2 (10:17→22:03)
[2017-11-29] MEDS: PANTOPRAZOLE 40 MG TABLET PO SCH (10:17)
[2017-11-29] MEDS: GABAPENTIN 300 MG CAPSULE PO SCH ×3 (10:17→22:03)
[2017-11-29] MEDS: CALCIUM ACETATE 667 MG CAPSULE PO SCH ×2 (10:17→22:04)
[2017-11-29] MEDS: FOLIC ACID 1 MG TABLET PO SCH (10:17)
[2017-11-29] MEDS: CYCLOBENZAPRINE 10 MG TABLET PO SCH ×2 (10:17→22:04)
[2017-11-29] MEDS: VENLAFAXINE XR 75 MG CAPSULE PO SCH (10:17)
[2017-11-29] MEDS: MULTIVITAMIN (CENTRUM) TABLET PO SCH (10:18)
[2017-11-29] MEDS: FERROUS SULFATE 325 MG TABLET PO SCH (10:18)
[2017-11-29] MEDS: ZINC OXIDE PASTE 113 GM TUBE TOP SCH ×2 (10:18→22:09)
[2017-11-29] MEDS: ASPIRIN EC 81 MG TABLET PO SCH (10:18)
[2017-11-29] MEDS: amLODIPine 10 MG TABLET PO SCH (10:18)
[2017-11-29] MEDS: oxyCODONE/ACETAMINOPHEN 5-325 MG TABLET PO PRN ×3 (10:18→22:28)
[2017-11-29] MEDS: LEVOTHYROXINE 175 MCG TABLET PO SCH (10:18)
[2017-11-29] MEDS: INSULIN GLARGINE 100 UNIT/ML SUBCUT SCH (21:58)
[2017-11-29] MEDS: MELATONIN 3 MG TABLET PO SCH (22:04)
[2017-11-30] MEDS: INSULIN REGULAR 100 UNIT/ML SUBCUT SCH ×5 (07:44→22:15)
[2017-11-30] MEDS: ZINC OXIDE PASTE 113 GM TUBE TOP SCH ×2 (09:39→22:23)
[2017-11-30] MEDS: amLODIPine 10 MG TABLET PO SCH (09:48)
[2017-11-30] MEDS ORDERED: ROPIVACAINE 0.5% 30 ML VIAL ONE (10:35)
[2017-11-30] MEDS ORDERED: fentaNYL 100 MCG/2 ML VIAL ONE (13:13)
[2017-11-30] MEDS ORDERED: PROPOFOL 200 MG/20 ML VIAL IV ONE (13:13)
[2017-11-30] MEDS ORDERED: SODIUM CHLORIDE 0.9% 250 ML IV ONE (13:13)
[2017-11-30] MEDS ORDERED: MIDAZOLAM 2 MG/2 ML VIAL ONE (13:13)
[2017-11-30] MEDS: LACTOBACILLUS ACIDOPHILUS/BULGARICUS CAPLET PO SCH ×2 (15:39→22:22)
[2017-11-30] MEDS: ASPIRIN EC 81 MG TABLET PO SCH (15:39)
[2017-11-30] MEDS: MULTIVITAMIN (CENTRUM) TABLET PO SCH (15:39)
[2017-11-30] MEDS: FOLIC ACID 1 MG TABLET PO SCH (15:40)
[2017-11-30] MEDS: CYCLOBENZAPRINE 10 MG TABLET PO SCH ×2 (15:40→22:23)
[2017-11-30] MEDS: GABAPENTIN 300 MG CAPSULE PO SCH ×2 (15:40→22:22)
[2017-11-30] MEDS: VENLAFAXINE XR 75 MG CAPSULE PO SCH (15:40)
[2017-11-30] MEDS: FERROUS SULFATE 325 MG TABLET PO SCH (15:40)
[2017-11-30] MEDS: CALCIUM ACETATE 667 MG CAPSULE PO SCH ×2 (15:41→22:23)
[2017-11-30] MEDS: PANTOPRAZOLE 40 MG TABLET PO SCH (15:41)
[2017-11-30] MEDS: LEVOTHYROXINE 175 MCG TABLET PO SCH (15:41)
[2017-11-30] MEDS ORDERED: VANCOMYCIN INJ 750 MG in SODIUM CHLORIDE 0.9% 250 ML IV ONE ×2 (16:00→19:30)
[2017-11-30] MEDS: INSULIN GLARGINE 100 UNIT/ML SUBCUT SCH (22:15)
[2017-11-30] MEDS: oxyCODONE/ACETAMINOPHEN 5-325 MG TABLET PO PRN (22:22)
[2017-11-30] MEDS: MELATONIN 3 MG TABLET PO SCH ×2 (22:22→22:30)
[2017-12-01] MEDS: diphenhydrAMINE CAP 25 MG CAPSULE PO PRN ×2 (00:39→12:21)
[2017-12-01] MEDS: INSULIN REGULAR 100 UNIT/ML SUBCUT SCH ×4 (08:00→21:11)
[2017-12-01] MEDS: ZINC OXIDE PASTE 113 GM TUBE TOP SCH ×2 (09:00→20:50)
[2017-12-01] MEDS: VENLAFAXINE XR 75 MG CAPSULE PO SCH (09:00)
[2017-12-01] MEDS: MULTIVITAMIN (CENTRUM) TABLET PO SCH (09:00)
[2017-12-01] MEDS: FERROUS SULFATE 325 MG TABLET PO SCH (09:00)
[2017-12-01] MEDS: FOLIC ACID 1 MG TABLET PO SCH (09:00)
[2017-12-01] MEDS: GABAPENTIN 300 MG CAPSULE PO SCH ×3 (09:00→20:43)
[2017-12-01] MEDS: LEVOTHYROXINE 175 MCG TABLET PO SCH (09:00)
[2017-12-01] MEDS: CALCIUM ACETATE 667 MG CAPSULE PO SCH ×2 (09:00→20:42)
[2017-12-01] MEDS: ASPIRIN EC 81 MG TABLET PO SCH (09:00)
[2017-12-01] MEDS: LACTOBACILLUS ACIDOPHILUS/BULGARICUS CAPLET PO SCH ×2 (09:00→20:49)
[2017-12-01] MEDS: CYCLOBENZAPRINE 10 MG TABLET PO SCH ×2 (09:00→20:50)
[2017-12-01] MEDS: PANTOPRAZOLE 40 MG TABLET PO SCH (09:00)
[2017-12-01] MEDS: amLODIPine 10 MG TABLET PO SCH (09:10)
[2017-12-01] MEDS: POLYETHYLENE GLYCOL POWDER 17 GM PACK PO PRN (12:21)
[2017-12-01] MEDS: oxyCODONE/ACETAMINOPHEN 5-325 MG TABLET PO PRN (20:41)
[2017-12-01] MEDS: MELATONIN 3 MG TABLET PO SCH (20:42)
[2017-12-01] MEDS: INSULIN GLARGINE 100 UNIT/ML SUBCUT SCH (20:49)
[2017-12-02] MEDS: FOLIC ACID 1 MG TABLET PO SCH ×2 (07:57→08:42)
[2017-12-02] MEDS: MULTIVITAMIN (CENTRUM) TABLET PO SCH ×2 (07:57→08:42)
[2017-12-02] MEDS: VENLAFAXINE XR 75 MG CAPSULE PO SCH ×2 (07:57→08:42)
[2017-12-02] MEDS: CALCIUM ACETATE 667 MG CAPSULE PO SCH ×3 (07:57→20:34)
[2017-12-02] MEDS: GABAPENTIN 300 MG CAPSULE PO SCH ×4 (07:57→20:34)
[2017-12-02] MEDS: ASPIRIN EC 81 MG TABLET PO SCH ×2 (07:58→08:41)
[2017-12-02] MEDS: LACTOBACILLUS ACIDOPHILUS/BULGARICUS CAPLET PO SCH ×3 (07:58→20:34)
[2017-12-02] MEDS: amLODIPine 10 MG TABLET PO SCH ×2 (07:58→08:42)
[2017-12-02] MEDS: INSULIN REGULAR 100 UNIT/ML SUBCUT SCH ×3 (07:59→20:37)
[2017-12-02] MEDS: LEVOTHYROXINE 175 MCG TABLET PO SCH (07:59)
[2017-12-02] MEDS: FERROUS SULFATE 325 MG TABLET PO SCH (07:59)
[2017-12-02] MEDS: PANTOPRAZOLE 40 MG TABLET PO SCH (07:59)
[2017-12-02] MEDS: CYCLOBENZAPRINE 10 MG TABLET PO SCH ×2 (07:59→20:35)
[2017-12-02] MEDS: ZINC OXIDE PASTE 113 GM TUBE TOP SCH ×2 (08:00→20:36)
[2017-12-02] MEDS: diphenhydrAMINE CAP 25 MG CAPSULE PO PRN (14:51)
[2017-12-02] MEDS ORDERED: VANCOMYCIN INJ 750 MG in SODIUM CHLORIDE 0.9% 250 ML IV ONE (16:00)
[2017-12-02] MEDS: MELATONIN 3 MG TABLET PO SCH (20:34)
[2017-12-02] MEDS: INSULIN GLARGINE 100 UNIT/ML SUBCUT SCH (20:36)
[2017-12-03] MEDS: oxyCODONE/ACETAMINOPHEN 5-325 MG TABLET PO PRN ×2 (03:31→18:41)
[2017-12-03] MEDS: INSULIN REGULAR 100 UNIT/ML SUBCUT SCH ×4 (10:18→21:35)
[2017-12-03] MEDS: LACTOBACILLUS ACIDOPHILUS/BULGARICUS CAPLET PO SCH ×2 (11:53→21:32)
[2017-12-03] MEDS: FERROUS SULFATE 325 MG TABLET PO SCH (11:53)
[2017-12-03] MEDS: diphenhydrAMINE CAP 25 MG CAPSULE PO PRN ×2 (11:53→21:32)
[2017-12-03] MEDS: ASPIRIN EC 81 MG TABLET PO SCH (11:53)
[2017-12-03] MEDS: MULTIVITAMIN (CENTRUM) TABLET PO SCH (11:53)
[2017-12-03] MEDS: LEVOTHYROXINE 175 MCG TABLET PO SCH (11:53)
[2017-12-03] MEDS: CALCIUM ACETATE 667 MG CAPSULE PO SCH ×2 (11:54→21:34)
[2017-12-03] MEDS: VENLAFAXINE XR 75 MG CAPSULE PO SCH (11:54)
[2017-12-03] MEDS: PANTOPRAZOLE 40 MG TABLET PO SCH (11:54)
[2017-12-03] MEDS: FOLIC ACID 1 MG TABLET PO SCH (11:54)
[2017-12-03] MEDS: CYCLOBENZAPRINE 10 MG TABLET PO SCH ×2 (11:54→21:33)
[2017-12-03] MEDS: amLODIPine 10 MG TABLET PO SCH (11:55)
[2017-12-03] MEDS: GABAPENTIN 300 MG CAPSULE PO SCH ×3 (11:55→21:34)
[2017-12-03] MEDS: cloNIDine 0.3 MG/24 HR PATCH TRANSDERM SCH (11:57)
[2017-12-03] MEDS ORDERED: DOCUSATE SODIUM 100 MG CAPSULE PO PRN (17:40)
[2017-12-03] MEDS: ZINC OXIDE PASTE 113 GM TUBE TOP SCH (21:30)
[2017-12-03] MEDS: MELATONIN 3 MG TABLET PO SCH (21:32)
[2017-12-03] MEDS: FLUCONAZOLE 200 MG TABLET PO SCH (21:33)
[2017-12-03] MEDS: INSULIN GLARGINE 100 UNIT/ML SUBCUT SCH (21:43)
[2017-12-03] MEDS: POLYETHYLENE GLYCOL POWDER 17 GM PACK PO PRN (21:43)
[2017-12-04] MEDS: ZINC OXIDE PASTE 113 GM TUBE TOP SCH ×3 (00:23→21:18)
[2017-12-04 06:30] LABS: Basophils % 0.4 % (0.0-0.8); Eosinophils # 0.3 10*3/uL (0.0-0.87); Eosinophils % 5.9 % (0.00-10.9); Hematocrit 38.7 VOL% (35.7-47.0); Hemoglobin 12.3 GM/DL (12.0-16.0); Immature Granulocytes % 0.4 %; Immature Granulocytes Absolute 0.02 #; Lymphocytes # 1.5 10*3/uL (1.4-4.0); Lymphocytes % 31.5 % (21.3-54.2); Mean Corpuscular HGB Conc 31.8 GM/DL (32-36); Mean Corpuscular Hemoglobin 31 PG (27-34); Mean Corpuscular Volume 96.3 FL (87-102); Mean Platelet Volume 10.8 FL (9.6-12.0); Monocytes # 0.5 10*3/uL (0.11-0.8); Monocytes % 9.5 % (1.7-12.7); Neutrophils # 2.5 10*3/uL (1.4-7.4); Neutrophils % 52.3 % (38.7-73.9); Platelet Count 121 T/CUMM (130-400); Red Blood Count 4.02 MC/CUMM (3.8-5.5); Red Cell Distribution Width 15.2 % (9.3-17.3); White Blood Count 4.7 T/CUMM (4-12)
[2017-12-04 07:06] LABS: Calcium 9.1 MG/DL (8.5-10.1); Osmolality,Calculated 279.7 MOS/KG (273-304); Potassium 4.1 MMOL/L (3.5-5.1)
[2017-12-04] MEDS: INSULIN REGULAR 100 UNIT/ML SUBCUT SCH ×4 (09:06→21:22)
[2017-12-04] MEDS ORDERED: VANCOMYCIN INJ 1,000 MG in SODIUM CHLORIDE 0.9% 250 ML IV ONE (15:00)
[2017-12-04] MEDS: MULTIVITAMIN (CENTRUM) TABLET PO SCH (15:52)
[2017-12-04] MEDS: ASPIRIN EC 81 MG TABLET PO SCH (15:52)
[2017-12-04] MEDS: LACTOBACILLUS ACIDOPHILUS/BULGARICUS CAPLET PO SCH ×2 (15:52→21:17)
[2017-12-04] MEDS: PANTOPRAZOLE 40 MG TABLET PO SCH (15:53)
[2017-12-04] MEDS: CALCIUM ACETATE 667 MG CAPSULE PO SCH ×2 (15:53→21:16)
[2017-12-04] MEDS: FOLIC ACID 1 MG TABLET PO SCH (15:53)
[2017-12-04] MEDS: FERROUS SULFATE 325 MG TABLET PO SCH (15:53)
[2017-12-04] MEDS: GABAPENTIN 300 MG CAPSULE PO SCH ×3 (16:53→21:17)
[2017-12-04] MEDS: LEVOTHYROXINE 175 MCG TABLET PO SCH (16:55)
[2017-12-04] MEDS: CYCLOBENZAPRINE 10 MG TABLET PO SCH ×2 (16:55→21:16)
[2017-12-04] MEDS: amLODIPine 10 MG TABLET PO SCH (16:55)
[2017-12-04] MEDS: VENLAFAXINE XR 75 MG CAPSULE PO SCH (16:55)
[2017-12-04] MEDS: FLUCONAZOLE 200 MG TABLET PO SCH (16:55)
[2017-12-04] MEDS: oxyCODONE/ACETAMINOPHEN 5-325 MG TABLET PO PRN (17:37)
[2017-12-04] MEDS: diphenhydrAMINE CAP 25 MG CAPSULE PO PRN (17:38)
[2017-12-04] MEDS: INSULIN GLARGINE 100 UNIT/ML SUBCUT SCH (21:22)
[2017-12-04] MEDS: MELATONIN 3 MG TABLET PO SCH (21:23)
[2017-12-04] MEDS: POLYETHYLENE GLYCOL POWDER 17 GM PACK PO PRN (21:28)
[2017-12-05 07:27] LABS: Bilirubin,Total 0.6 MG/DL (0.2-1.0); Osmolality,Calculated 276.7 MOS/KG (273-304); Potassium 4.2 MMOL/L (3.5-5.1); Total Protein 6.6 G/DL (6.4-8.3)
[2017-12-05] MEDS: INSULIN REGULAR 100 UNIT/ML SUBCUT SCH ×4 (07:44→21:08)
[2017-12-05 09:03] LABS: Basophils % 0.6 % (0.0-0.8); Eosinophils # 0.3 10*3/uL (0.0-0.87); Eosinophils % 5.7 % (0.00-10.9); Hematocrit 38.1 VOL% (35.7-47.0); Immature Granulocytes % 0.2 %; Immature Granulocytes Absolute 0.01 #; Lymphocytes # 1.5 10*3/uL (1.4-4.0); Lymphocytes % 30.4 % (21.3-54.2); Mean Corpuscular HGB Conc 31.5 GM/DL (32-36); Mean Corpuscular Hemoglobin 31 PG (27-34); Mean Corpuscular Volume 96.7 FL (87-102); Mean Platelet Volume 11.2 FL (9.6-12.0); Monocytes # 0.6 10*3/uL (0.11-0.8); Monocytes % 11.1 % (1.7-12.7); Neutrophils # 2.6 10*3/uL (1.4-7.4); Platelet Count 130 T/CUMM (130-400); Red Blood Count 3.94 MC/CUMM (3.8-5.5); Red Cell Distribution Width 15.2 % (9.3-17.3); White Blood Count 4.9 T/CUMM (4-12)
[2017-12-05 10:10] LABS: Sedimentation Rate-Westergren 64 MM/HR (0-30)
[2017-12-05] MEDS: ZINC OXIDE PASTE 113 GM TUBE TOP SCH ×2 (10:45→21:10)
[2017-12-05] MEDS: GABAPENTIN 300 MG CAPSULE PO SCH ×3 (10:49→21:07)
[2017-12-05] MEDS: LACTOBACILLUS ACIDOPHILUS/BULGARICUS CAPLET PO SCH ×2 (10:49→21:06)
[2017-12-05] MEDS: VENLAFAXINE XR 75 MG CAPSULE PO SCH (10:49)
[2017-12-05] MEDS: FLUCONAZOLE 200 MG TABLET PO SCH (10:49)
[2017-12-05] MEDS: MULTIVITAMIN (CENTRUM) TABLET PO SCH (10:49)
[2017-12-05] MEDS: PANTOPRAZOLE 40 MG TABLET PO SCH (10:50)
[2017-12-05] MEDS: amLODIPine 10 MG TABLET PO SCH (10:50)
[2017-12-05] MEDS: FERROUS SULFATE 325 MG TABLET PO SCH (10:50)
[2017-12-05] MEDS: CALCIUM ACETATE 667 MG CAPSULE PO SCH ×2 (10:50→21:06)
[2017-12-05] MEDS: CYCLOBENZAPRINE 10 MG TABLET PO SCH ×2 (10:51→21:06)
[2017-12-05] MEDS: ASPIRIN EC 81 MG TABLET PO SCH (10:51)
[2017-12-05] MEDS: LEVOTHYROXINE 175 MCG TABLET PO SCH (10:51)
[2017-12-05] MEDS: FOLIC ACID 1 MG TABLET PO SCH (10:52)
[2017-12-05] MEDS: oxyCODONE/ACETAMINOPHEN 5-325 MG TABLET PO PRN (15:00)
[2017-12-05] MEDS: INSULIN GLARGINE 100 UNIT/ML SUBCUT SCH (21:08)
[2017-12-05] MEDS: POLYETHYLENE GLYCOL POWDER 17 GM PACK PO PRN (21:08)
[2017-12-05] MEDS: MELATONIN 3 MG TABLET PO SCH (21:08)
[2017-12-06] MEDS: oxyCODONE/ACETAMINOPHEN 5-325 MG TABLET PO PRN ×2 (05:06→21:37)
[2017-12-06 05:28] LABS: Basophils % 0.6 % (0.0-0.8); Eosinophils # 0.3 10*3/uL (0.0-0.87); Hematocrit 37.2 VOL% (35.7-47.0); Hemoglobin 12.2 GM/DL (12.0-16.0); Immature Granulocytes % 0.4 %; Immature Granulocytes Absolute 0.02 #; Lymphocytes # 1.6 10*3/uL (1.4-4.0); Lymphocytes % 31.1 % (21.3-54.2); Mean Corpuscular HGB Conc 32.8 GM/DL (32-36); Mean Corpuscular Hemoglobin 31 PG (27-34); Mean Platelet Volume 10.4 FL (9.6-12.0); Monocytes # 0.6 10*3/uL (0.11-0.8); Monocytes % 11.4 % (1.7-12.7); Neutrophils # 2.6 10*3/uL (1.4-7.4); Neutrophils % 51.5 % (38.7-73.9); Platelet Count 126 T/CUMM (130-400)
[2017-12-06 05:43] LABS: Bilirubin,Total 0.5 MG/DL (0.2-1.0); Calcium 9.5 MG/DL (8.5-10.1); Potassium 4.2 MMOL/L (3.5-5.1); Total Protein 6.4 G/DL (6.4-8.3)
[2017-12-06] MEDS: INSULIN REGULAR 100 UNIT/ML SUBCUT SCH ×4 (07:31→23:31)
[2017-12-06] MEDS ORDERED: BISACODYL 10 MG SUPP RECTAL PRN (08:30)
[2017-12-06] MEDS ORDERED: BISACODYL 10 MG SUPP RECTAL ONE (08:30)
[2017-12-06] MEDS: PANTOPRAZOLE 40 MG TABLET PO SCH (09:30)
[2017-12-06] MEDS: FERROUS SULFATE 325 MG TABLET PO SCH (09:30)
[2017-12-06] MEDS: FOLIC ACID 1 MG TABLET PO SCH (09:30)
[2017-12-06] MEDS: FLUCONAZOLE 200 MG TABLET PO SCH (09:30)
[2017-12-06] MEDS: diphenhydrAMINE CAP 25 MG CAPSULE PO PRN ×2 (09:30→21:38)
[2017-12-06] MEDS: LEVOTHYROXINE 175 MCG TABLET PO SCH (09:30)
[2017-12-06] MEDS: LACTOBACILLUS ACIDOPHILUS/BULGARICUS CAPLET PO SCH ×2 (09:30→21:30)
[2017-12-06] MEDS: VENLAFAXINE XR 75 MG CAPSULE PO SCH (09:30)
[2017-12-06] MEDS: ASPIRIN EC 81 MG TABLET PO SCH (09:31)
[2017-12-06] MEDS: CYCLOBENZAPRINE 10 MG TABLET PO SCH ×2 (09:31→21:38)
[2017-12-06] MEDS: CALCIUM ACETATE 667 MG CAPSULE PO SCH ×2 (09:31→21:31)
[2017-12-06] MEDS: MULTIVITAMIN (CENTRUM) TABLET PO SCH (09:31)
[2017-12-06] MEDS: ZINC OXIDE PASTE 113 GM TUBE TOP SCH ×2 (09:31→23:31)
[2017-12-06] MEDS: GABAPENTIN 300 MG CAPSULE PO SCH ×3 (09:31→21:31)
[2017-12-06] MEDS: amLODIPine 10 MG TABLET PO SCH (09:31)
[2017-12-06] MEDS: MELATONIN 3 MG TABLET PO SCH (23:31)
[2017-12-06] MEDS: INSULIN GLARGINE 100 UNIT/ML SUBCUT SCH (23:31)
[2017-12-07] MEDS: INSULIN REGULAR 100 UNIT/ML SUBCUT SCH ×3 (07:26→16:29)
[2017-12-07] MEDS ORDERED: VANCOMYCIN INJ 1,250 MG in SODIUM CHLORIDE 0.9% 250 ML IV PRN (08:30)
[2017-12-07] MEDS: FOLIC ACID 1 MG TABLET PO SCH (08:45)
[2017-12-07] MEDS: VENLAFAXINE XR 75 MG CAPSULE PO SCH (08:45)
[2017-12-07] MEDS: ASPIRIN EC 81 MG TABLET PO SCH (08:45)
[2017-12-07] MEDS: LACTOBACILLUS ACIDOPHILUS/BULGARICUS CAPLET PO SCH ×2 (08:45→20:46)
[2017-12-07] MEDS: GABAPENTIN 300 MG CAPSULE PO SCH ×3 (08:45→20:47)
[2017-12-07] MEDS: FERROUS SULFATE 325 MG TABLET PO SCH (08:45)
[2017-12-07] MEDS: CYCLOBENZAPRINE 10 MG TABLET PO SCH ×2 (08:45→20:45)
[2017-12-07] MEDS: amLODIPine 10 MG TABLET PO SCH (08:45)
[2017-12-07] MEDS: MULTIVITAMIN (CENTRUM) TABLET PO SCH (08:45)
[2017-12-07] MEDS: LEVOTHYROXINE 175 MCG TABLET PO SCH (08:45)
[2017-12-07] MEDS: PANTOPRAZOLE 40 MG TABLET PO SCH (08:46)
[2017-12-07] MEDS: CALCIUM ACETATE 667 MG CAPSULE PO SCH ×2 (08:46→20:46)
[2017-12-07] MEDS: ZINC OXIDE PASTE 113 GM TUBE TOP SCH ×2 (08:46→20:47)
[2017-12-07] MEDS ORDERED: VANCOMYCIN INJ 1,250 MG in SODIUM CHLORIDE 0.9% 250 ML IV ONE (12:00)
[2017-12-07] MEDS: oxyCODONE/ACETAMINOPHEN 5-325 MG TABLET PO PRN (18:07)
[2017-12-07] MEDS: diphenhydrAMINE CAP 25 MG CAPSULE PO PRN (18:07)
[2017-12-07] MEDS: MELATONIN 3 MG TABLET PO SCH (20:45)
[2017-12-07] MEDS: INSULIN GLARGINE 100 UNIT/ML SUBCUT SCH (20:46)
[2017-12-08] MEDS: INSULIN REGULAR 100 UNIT/ML SUBCUT SCH ×4 (00:22→17:39)
[2017-12-08] MEDS: diphenhydrAMINE CAP 25 MG CAPSULE PO PRN (00:26)
[2017-12-08] MEDS: oxyCODONE/ACETAMINOPHEN 5-325 MG TABLET PO PRN ×3 (00:26→11:58)
[2017-12-08] MEDS: FERROUS SULFATE 325 MG TABLET PO SCH (09:22)
[2017-12-08] MEDS: CYCLOBENZAPRINE 10 MG TABLET PO SCH (09:22)
[2017-12-08] MEDS: GABAPENTIN 300 MG CAPSULE PO SCH ×2 (09:23→16:00)
[2017-12-08] MEDS: FOLIC ACID 1 MG TABLET PO SCH (09:23)
[2017-12-08] MEDS: ASPIRIN EC 81 MG TABLET PO SCH (09:23)
[2017-12-08] MEDS: CALCIUM ACETATE 667 MG CAPSULE PO SCH (09:23)
[2017-12-08] MEDS: MULTIVITAMIN (CENTRUM) TABLET PO SCH (09:23)
[2017-12-08] MEDS: LACTOBACILLUS ACIDOPHILUS/BULGARICUS CAPLET PO SCH (09:23)
[2017-12-08] MEDS: LEVOTHYROXINE 175 MCG TABLET PO SCH (09:24)
[2017-12-08] MEDS: amLODIPine 10 MG TABLET PO SCH (09:24)
[2017-12-08] MEDS: VENLAFAXINE XR 75 MG CAPSULE PO SCH (09:24)
[2017-12-08] MEDS: PANTOPRAZOLE 40 MG TABLET PO SCH (09:24)
[2017-12-08] MEDS: ZINC OXIDE PASTE 113 GM TUBE TOP SCH (09:24)
[2017-12-08 17:05] VITALS: BP 149/73
== END 2017-12-08 18:53 | DRG 94 ==
LOC: EDUNIT# → EDBD → N.ED 17:34 → N.EDINP 18:28 → N.3E 20:09
PROVIDERS: ADMIT Internal Medicine; ATTEND Internal Medicine

== ENCOUNTER 2018-08-04 15:02 | Inpatient (IN) ==
[2018-08-04] MEDS ORDERED: ALBUTEROL NEB SOLN 5 MG/ML 20 ML/BOTTLE CONT NEB STA (15:39)
[2018-08-04 16:14] LABS: Basophils % 0.4 % (0.0-0.8); Eosinophils # 0.1 10*3/uL (0.0-0.87); Eosinophils % 2.2 % (0.00-10.9); Hematocrit 40.4 VOL% (35.7-47.0); Hemoglobin 12.8 GM/DL (12.0-16.0); Immature Granulocytes % 0.4 %; Immature Granulocytes Absolute 0.02 #; Lymphocytes # 0.6 10*3/uL (1.4-4.0); Lymphocytes % 13.4 % (21.3-54.2); Mean Corpuscular HGB Conc 31.7 GM/DL (32-36); Mean Corpuscular Volume 99.8 FL (87-102); Monocytes % 10.5 % (1.7-12.7); Neutrophils % 73.1 % (38.7-73.9); Red Blood Count 4.05 MC/CUMM (3.8-5.5); Red Cell Distribution Width 14.2 % (9.3-17.3); White Blood Count 4.6 T/CUMM (4-12)
[2018-08-04 16:18] LABS: Platelet Count 100 T/CUMM (130-400)
[2018-08-04 16:39] LABS: Albumin 3.5 G/DL (3.4-5.0); Bilirubin,Total 0.5 MG/DL (0.2-1.0); Calcium 8.9 MG/DL (8.5-10.1); Osmolality,Calculated 279.1 MOS/KG (273-304); Total Protein 6.9 G/DL (6.4-8.3)
[2018-08-04] MEDS ORDERED: ACETAMINOPHEN 500 MG TABLET PO PRN (17:50)
[2018-08-04] MEDS ORDERED: ONDANSETRON 4 MG/2 ML VIAL IV PRN (17:50)
[2018-08-04] MEDS ORDERED: GLUCAGON 1 MG VIAL IM PRN (17:50)
[2018-08-04] MEDS ORDERED: DEXTROSE 50% 25 GM/50 ML VIAL IV PRN ×2 (17:50→17:55)
[2018-08-04] MEDS: ALBUTEROL/IPRATROPIUM 3 ML NEB RESP TX SCH ×2 (19:58→23:59)
[2018-08-04] MEDS: INSULIN REGULAR 100 UNIT/ML SUBCUT SCH (21:08)
[2018-08-05] MEDS: traMADol 50 MG TABLET PO SCH ×5 (01:50→21:55)
[2018-08-05] MEDS ORDERED: guaiFENesin 200 MG/10 ML UDCUP PO PRN (03:51)
[2018-08-05] MEDS: ALBUTEROL/IPRATROPIUM 3 ML NEB RESP TX SCH ×4 (07:36→19:46)
[2018-08-05] MEDS ORDERED: BENZONATATE 100 MG CAPSULE PO PRN (07:45)
[2018-08-05] MEDS ORDERED: ONDANSETRON 4 MG TABLET PO PRN (07:55)
[2018-08-05] MEDS ORDERED: POLYVINYL ALCOHOL 1.4% OPH SOLN 15 ML BOTTLE BOTH EYES PRN (07:55)
[2018-08-05] MEDS ORDERED: MENTHOL 4% TOP PRN (07:55)
[2018-08-05] MEDS ORDERED: diphenhydrAMINE CAP 25 MG CAPSULE PO PRN (07:55)
[2018-08-05] MEDS ORDERED: MECLIZINE 25 MG TABLET PO PRN (07:55)
[2018-08-05] MEDS ORDERED: ALBUTEROL 2.5 MG/3 ML NEB RESP TX PRN (08:00)
[2018-08-05] MEDS: INSULIN REGULAR 100 UNIT/ML SUBCUT SCH ×4 (08:59→22:35)
[2018-08-05] MEDS: LACTOBACILLUS ACIDOPHILUS/BULGARICUS CAPLET PO SCH ×2 (09:00→21:56)
[2018-08-05] MEDS ORDERED: AMOXICILLIN/CLAV 500 MG TABLET PO SCH (09:00)
[2018-08-05] MEDS: ASPIRIN EC 81 MG TABLET PO SCH (09:00)
[2018-08-05] MEDS ORDERED: TICAGRELOR 90 MG TABLET PO SCH (09:00)
[2018-08-05] MEDS: POTASSIUM CHLORIDE 20 MEQ TABLET PO SCH ×2 (09:00→22:35)
[2018-08-05] MEDS: LISINOPRIL 10 MG TABLET PO SCH (09:00)
[2018-08-05] MEDS: PANTOPRAZOLE 40 MG TABLET PO SCH (09:01)
[2018-08-05] MEDS: GABAPENTIN 300 MG CAPSULE PO SCH ×3 (09:01→21:57)
[2018-08-05] MEDS: MULTIVITAMIN (CENTRUM) TABLET PO SCH (09:01)
[2018-08-05] MEDS: SEVELAMER CARBONATE 800 MG TABLET PO SCH ×3 (09:01→18:22)
[2018-08-05] MEDS: TICAGRELOR 90 MG TABLET PO SCH ×2 (09:01→21:57)
[2018-08-05] MEDS: CYCLOBENZAPRINE 10 MG TABLET PO SCH ×2 (09:01→21:56)
[2018-08-05] MEDS: amLODIPine 10 MG TABLET PO SCH (09:01)
[2018-08-05] MEDS: LORATADINE 10 MG TABLET PO SCH (09:01)
[2018-08-05] MEDS: FOLIC ACID 1 MG TABLET PO SCH (09:01)
[2018-08-05] MEDS: ZINC OXIDE PASTE 113 GM TUBE TOP SCH ×2 (09:02→23:59)
[2018-08-05] MEDS: FERROUS SULFATE 325 MG TABLET PO SCH (09:02)
[2018-08-05] MEDS: VENLAFAXINE 37.5 MG TABLET PO SCH (09:02)
[2018-08-05] MEDS ORDERED: INSULIN GLARGINE 100 UNIT/ML SUBCUT SCH (21:00)
[2018-08-06] MEDS: ALBUTEROL/IPRATROPIUM 3 ML NEB RESP TX SCH ×4 (00:11→10:53)
[2018-08-06] MEDS ORDERED: LEVOTHYROXINE 175 MCG TABLET PO SCH (06:30)
[2018-08-06] MEDS: INSULIN REGULAR 100 UNIT/ML SUBCUT SCH ×3 (10:19→16:45)
[2018-08-06] MEDS: GABAPENTIN 300 MG CAPSULE PO SCH ×2 (10:21→14:23)
[2018-08-06] MEDS: SEVELAMER CARBONATE 800 MG TABLET PO SCH ×2 (10:21→14:24)
[2018-08-06] MEDS: traMADol 50 MG TABLET PO SCH ×2 (10:22→14:23)
[2018-08-06] MEDS: FERROUS SULFATE 325 MG TABLET PO SCH (14:20)
[2018-08-06] MEDS: LACTOBACILLUS ACIDOPHILUS/BULGARICUS CAPLET PO SCH (14:20)
[2018-08-06] MEDS: CYCLOBENZAPRINE 10 MG TABLET PO SCH (14:20)
[2018-08-06] MEDS: MULTIVITAMIN (CENTRUM) TABLET PO SCH (14:21)
[2018-08-06] MEDS: FOLIC ACID 1 MG TABLET PO SCH (14:21)
[2018-08-06] MEDS: TICAGRELOR 90 MG TABLET PO SCH (14:22)
[2018-08-06] MEDS: ASPIRIN EC 81 MG TABLET PO SCH (14:22)
[2018-08-06] MEDS: LORATADINE 10 MG TABLET PO SCH (14:22)
[2018-08-06] MEDS: amLODIPine 10 MG TABLET PO SCH (14:23)
[2018-08-06] MEDS: LISINOPRIL 10 MG TABLET PO SCH (14:24)
[2018-08-06] MEDS: POTASSIUM CHLORIDE 20 MEQ TABLET PO SCH (14:25)
[2018-08-06] MEDS: PANTOPRAZOLE 40 MG TABLET PO SCH (14:25)
[2018-08-06] MEDS: VENLAFAXINE 37.5 MG TABLET PO SCH (14:29)
[2018-08-06] MEDS: ZINC OXIDE PASTE 113 GM TUBE TOP SCH (14:30)
[2018-08-06 15:37] VITALS: BP 179/67
[2018-08-11] MEDS ORDERED: cloNIDine 0.3 MG/24 HR PATCH TRANSDERM SCH (09:00)
== END 2018-08-06 16:55 | DRG 291 ==
LOC: EDUNIT# → EDBD → N.ED 15:02 → N.EDINP 17:49 → N.2E 19:39
PROVIDERS: ADMIT Internal Medicine; ATTEND Internal Medicine

== ENCOUNTER 2018-10-04 17:47 | Inpatient (IN) ==
[2018-10-04 19:24] LABS: Basophils % 0.2 % (0.0-0.8); Hematocrit 22.6 VOL% (35.7-47.0); Immature Granulocytes % 1.9 %; Immature Granulocytes Absolute 0.11 #; Lymphocytes # 0.1 10*3/uL (1.4-4.0); Lymphocytes % 1.9 % (21.3-54.2); Mean Corpuscular HGB Conc 32.3 GM/DL (32-36); Mean Corpuscular Volume 99.6 FL (87-102); Monocytes % 8.3 % (1.7-12.7); Neutrophils % 87.7 % (38.7-73.9); Red Cell Distribution Width 17.5 % (9.3-17.3); White Blood Count 5.8 T/CUMM (4-12)
[2018-10-04 19:27] LABS: Hemoglobin 7.3 GM/DL (12.0-16.0); Platelet Count 45 T/CUMM (130-400); Red Blood Count 2.27 MC/CUMM (3.8-5.5)
[2018-10-04 19:38] LABS: Albumin 2.5 G/DL (3.4-5.0); Bilirubin,Total 0.9 MG/DL (0.2-1.0); Calcium 8.3 MG/DL (8.5-10.1); Osmolality,Calculated 281.7 MOS/KG (273-304); Total Protein 6.3 G/DL (6.4-8.3)
[2018-10-04 19:58] LABS: Anisocytosis 2+; Macrocytosis 2+; Myelocytes 1 %; Segmented Neutrophils 94 % (50-85); Total Cells Counted 100
[2018-10-04 19:59] LABS: Burr Cells Few; Elliptocytes Few; Platelet Estimate Decreased; Poikilocytosis 1+; Polychromasia Slight; Tear Drop Cells Few
[2018-10-04 23:36] LABS: Barbiturates Screen,Urine Negative (Negative); Benzodiazepines Screen,Urine Negative (Negative); Cannabinoid Screen,Urine Negative (Negative); Opiate Screen,Urine Negative (Negative); Phencyclidine Screen,Urine Negative (Negative)
[2018-10-04 23:46] LABS: Apearance,Urine CLOUDY (Clear); Bilirubin,Urine Negative (Negative); Blood, Urine Moderate mg/dL (Negative); Glucose,Urine (UA) Negative (Negative); Ketones,Urine Negative (Negative); Nitrite,Urine Negative (Negative); Protein,Urine >=500 MG/DL; RBC,Urine 13 /HPF (0-4); Urine Color Yellow (Yellow); Urine Urobilinogen < 2.0 EU/DL (0.2-1.0); WBC,Urine 1305 /HPF (0-6)
[2018-10-04] MEDS ORDERED: AZTREONAM 2,000 MG in SODIUM CHLORIDE 0.9% 100 ML IV STA (23:50)
[2018-10-04] MEDS ORDERED: VANCOMYCIN INJ 1,000 MG in SODIUM CHLORIDE 0.9% 250 ML IV STA (23:51)
[2018-10-05] MEDS ORDERED: ONDANSETRON 4 MG/2 ML VIAL IV PRN ×2 (00:02→00:48)
[2018-10-05] MEDS ORDERED: AZTREONAM 2,000 MG in SYRINGE 1 EACH IV STA (00:11)
[2018-10-05] MEDS ORDERED: ACETAMINOPHEN 325 MG TABLET PO PRN (00:48)
[2018-10-05] MEDS ORDERED: SODIUM CHLORIDE 0.9% 1,000 ML IV SCH (08:30)
[2018-10-05] MEDS ORDERED: PANTOPRAZOLE 40 MG VIAL IV SCH (09:00)
[2018-10-05] MEDS ORDERED: DOCUSATE SODIUM 100 MG CAPSULE PO SCH (09:00)
[2018-10-05] MEDS ORDERED: PANTOPRAZOLE 40 MG TABLET PO SCH (09:00)
[2018-10-05] MEDS ORDERED: NITROGLYCERIN SL 0.4 MG TABLET SL PRN (09:05)
[2018-10-05] MEDS ORDERED: MENTHOL 4% TOP PRN (09:05)
[2018-10-05] MEDS ORDERED: POLYETHYLENE GLYCOL POWDER 17 GM PACK PO PRN (09:05)
[2018-10-05] MEDS ORDERED: IBUPROFEN 400 MG TABLET PO PRN (09:05)
[2018-10-05] MEDS ORDERED: diphenhydrAMINE CAP 25 MG CAPSULE PO PRN (09:05)
[2018-10-05] MEDS ORDERED: BENZONATATE 100 MG CAPSULE PO PRN (09:05)
[2018-10-05] MEDS ORDERED: MECLIZINE 25 MG TABLET PO PRN (09:05)
[2018-10-05] MEDS ORDERED: ONDANSETRON 4 MG TABLET PO PRN (09:05)
[2018-10-05] MEDS ORDERED: SENNA 8.6 MG TABLET PO PRN (09:05)
[2018-10-05] MEDS ORDERED: ALBUTEROL 2.5 MG/3 ML NEB RESP TX PRN (09:05)
[2018-10-05] MEDS ORDERED: ONDANSETRON 4 MG/2 ML VIAL IM PRN (09:05)
[2018-10-05] MEDS ORDERED: guaiFENesin 200 MG/10 ML UDCUP PO PRN (09:05)
[2018-10-05] MEDS ORDERED: ALBUTEROL 0.63 MG/3 ML NEB RESP TX PRN (09:05)
[2018-10-05] MEDS ORDERED: POLYVINYL ALCOHOL 1.4% OPH SOLN 15 ML BOTTLE BOTH EYES PRN (09:05)
[2018-10-05] MEDS ORDERED: SIMETHICONE CHEW 125 MG TABLET PO PRN (09:05)
[2018-10-05 09:12] LABS: Albumin 2.1 G/DL (3.4-5.0); Bilirubin,Total 0.8 MG/DL (0.2-1.0); Total Protein 5.8 G/DL (6.4-8.3)
[2018-10-05 09:19] LABS: Basophils % 0.2 % (0.0-0.8); Hematocrit 21.4 VOL% (35.7-47.0); Hemoglobin 6.9 GM/DL (12.0-16.0); Immature Granulocytes % 6.6 %; Immature Granulocytes Absolute 0.43 #; Lymphocytes # 0.3 10*3/uL (1.4-4.0); Mean Corpuscular HGB Conc 32.2 GM/DL (32-36); Mean Corpuscular Volume 100.5 FL (87-102); Mean Platelet Volume 12.2 FL (9.6-12.0); Monocytes % 12.8 % (1.7-12.7); Neutrophils % 76.4 % (38.7-73.9); Platelet Count 46 T/CUMM (130-400); Red Blood Count 2.13 MC/CUMM (3.8-5.5); Red Cell Distribution Width 17.6 % (9.3-17.3); White Blood Count 6.5 T/CUMM (4-12)
[2018-10-05] MEDS ORDERED: TICAGRELOR 90 MG TABLET PO SCH (09:30)
[2018-10-05] MEDS: FOLIC ACID 1 MG TABLET PO SCH (09:36)
[2018-10-05] MEDS: CYCLOBENZAPRINE 10 MG TABLET PO SCH ×2 (09:37→21:26)
[2018-10-05] MEDS: FERROUS SULFATE 325 MG TABLET PO SCH (09:37)
[2018-10-05] MEDS: traMADol 50 MG TABLET PO SCH ×2 (09:41→17:48)
[2018-10-05] MEDS: LEVOTHYROXINE 200 MCG TABLET PO SCH (09:44)
[2018-10-05 09:46] LABS: Band Neutrophils 2 % (0-10); Lymphocytes 7 % (20-55); Nucleated Red Blood Cells 1 (0-5); Segmented Neutrophils 82 % (50-85); Total Cells Counted 100
[2018-10-05 09:47] LABS: Hypochromasia 1+; Platelet Estimate Decreased
[2018-10-05] MEDS: LEVOTHYROXINE 50 MCG TABLET PO SCH (09:47)
[2018-10-05] MEDS ORDERED: AZTREONAM 2,000 MG in SYRINGE 1 EACH IV ONE (10:00)
[2018-10-05] MEDS ORDERED: SODIUM CHLORIDE 0.9% 1,000 ML IV PRN (10:28)
[2018-10-05] MEDS: VENLAFAXINE XR 37.5 MG CAPSULE PO SCH (10:38)
[2018-10-05] MEDS: GABAPENTIN 300 MG CAPSULE PO SCH ×2 (15:56→21:25)
[2018-10-05] MEDS: AZTREONAM 500 MG in SODIUM CHLORIDE 0.9% 100 ML IV SCH (18:23)
[2018-10-05] MEDS: SEVELAMER CARBONATE 800 MG TABLET PO SCH (21:25)
[2018-10-05] MEDS: ATORVASTATIN 10 MG TABLET PO SCH (21:25)
[2018-10-05] MEDS: GEMFIBROZIL 600 MG TABLET PO SCH (21:25)
[2018-10-05] MEDS: ZINC OXIDE PASTE 113 GM TUBE TOP SCH (21:26)
[2018-10-05] MEDS: LACTOBACILLUS ACIDOPHILUS/BULGARICUS CAPLET PO SCH (21:26)
[2018-10-05] MEDS: INSULIN GLARGINE 100 UNIT/ML SUBCUT SCH (21:31)
[2018-10-06] MEDS: AZTREONAM 500 MG in SODIUM CHLORIDE 0.9% 100 ML IV SCH ×3 (01:28→17:52)
[2018-10-06] MEDS: traMADol 50 MG TABLET PO SCH ×3 (02:43→17:53)
[2018-10-06 05:21] LABS: Basophils % 0.1 % (0.0-0.8); Eosinophils % 0.1 % (0.00-10.9); Hematocrit 23.6 VOL% (35.7-47.0); Hemoglobin 7.6 GM/DL (12.0-16.0); Immature Granulocytes % 7.9 %; Lymphocytes # 0.4 10*3/uL (1.4-4.0); Lymphocytes % 5.4 % (21.3-54.2); Mean Corpuscular HGB Conc 32.2 GM/DL (32-36); Mean Corpuscular Volume 97.9 FL (87-102); Mean Platelet Volume 12.6 FL (9.6-12.0); Neutrophils % 74.5 % (38.7-73.9); Red Blood Count 2.41 MC/CUMM (3.8-5.5); Red Cell Distribution Width 18.5 % (9.3-17.3); White Blood Count 7.6 T/CUMM (4-12)
[2018-10-06 05:27] LABS: Platelet Count 56 T/CUMM (130-400)
[2018-10-06 05:46] LABS: Band Neutrophils 4 % (0-10); Lymphocytes 4 % (20-55); Segmented Neutrophils 85 % (50-85); Total Cells Counted 100
[2018-10-06 05:47] LABS: Hypochromasia 1+; Macrocytosis 1+; Ovalocytes Slight
[2018-10-06 05:48] LABS: Platelet Estimate Decreased
[2018-10-06] MEDS: LEVOTHYROXINE 200 MCG TABLET PO SCH (06:08)
[2018-10-06] MEDS: LEVOTHYROXINE 50 MCG TABLET PO SCH (06:08)
[2018-10-06] MEDS: LACTOBACILLUS ACIDOPHILUS/BULGARICUS CAPLET PO SCH ×3 (06:10→20:23)
[2018-10-06] MEDS: GEMFIBROZIL 600 MG TABLET PO SCH ×3 (06:11→20:22)
[2018-10-06] MEDS: CYCLOBENZAPRINE 10 MG TABLET PO SCH ×2 (06:11→11:58)
[2018-10-06] MEDS: ATORVASTATIN 10 MG TABLET PO SCH ×2 (06:11→20:22)
[2018-10-06] MEDS: GABAPENTIN 300 MG CAPSULE PO SCH ×4 (06:11→20:22)
[2018-10-06] MEDS: SEVELAMER CARBONATE 800 MG TABLET PO SCH ×4 (06:12→20:24)
[2018-10-06] MEDS ORDERED: SODIUM CHLORIDE 0.9% 1,000 ML IV PRN (08:34)
[2018-10-06] MEDS ORDERED: ASPIRIN EC 81 MG TABLET PO SCH (09:00)
[2018-10-06 09:05] LABS: Folate > 24.0 NG/ML (5.4-24.0); Vitamin B12 1044 PG/ML (211-911)
[2018-10-06] MEDS: VENLAFAXINE XR 37.5 MG CAPSULE PO SCH (11:57)
[2018-10-06] MEDS: MULTIVITAMIN (CENTRUM) TABLET PO SCH (11:57)
[2018-10-06] MEDS: FERROUS SULFATE 325 MG TABLET PO SCH (11:58)
[2018-10-06] MEDS: FOLIC ACID 1 MG TABLET PO SCH (11:58)
[2018-10-06] MEDS: LISINOPRIL 10 MG TABLET PO SCH (11:59)
[2018-10-06 12:59] LABS: % Iron Saturation 20.2 % (18-50); Ferritin 5961.1 ng/ml (8-252)
[2018-10-06] MEDS: cloNIDine 0.3 MG/24 HR PATCH TRANSDERM SCH (15:58)
[2018-10-06] MEDS: ZINC OXIDE PASTE 113 GM TUBE TOP SCH ×2 (15:59→20:23)
[2018-10-06] MEDS ORDERED: VANCOMYCIN INJ 1,500 MG in SODIUM CHLORIDE 0.9% 500 ML IV ONE (18:00)
[2018-10-06] MEDS: INSULIN GLARGINE 100 UNIT/ML SUBCUT SCH (20:23)
[2018-10-07] MEDS: traMADol 50 MG TABLET PO SCH ×3 (02:47→16:33)
[2018-10-07] MEDS: AZTREONAM 500 MG in SODIUM CHLORIDE 0.9% 100 ML IV SCH ×3 (02:47→17:26)
[2018-10-07] MEDS: LEVOTHYROXINE 50 MCG TABLET PO SCH (06:01)
[2018-10-07 06:22] LABS: Basophils % 0.3 % (0.0-0.8); Eosinophils % 0.4 % (0.00-10.9); Hematocrit 29.4 VOL% (35.7-47.0); Hemoglobin 9.9 GM/DL (12.0-16.0); Immature Granulocytes % 2.6 %; Immature Granulocytes Absolute 0.28 #; Lymphocytes # 0.5 10*3/uL (1.4-4.0); Lymphocytes % 4.3 % (21.3-54.2); Mean Corpuscular HGB Conc 33.7 GM/DL (32-36); Mean Corpuscular Volume 95.5 FL (87-102); Mean Platelet Volume 12.2 FL (9.6-12.0); Monocytes % 7.5 % (1.7-12.7); Neutrophils % 84.9 % (38.7-73.9); Platelet Count 75 T/CUMM (130-400); Red Blood Count 3.08 MC/CUMM (3.8-5.5); Red Cell Distribution Width 19.5 % (9.3-17.3); White Blood Count 10.9 T/CUMM (4-12)
[2018-10-07 06:47] LABS: Band Neutrophils 3 % (0-10); Eosinophils 1 % (0-10); Lymphocytes 4 % (20-55); Segmented Neutrophils 84 % (50-85); Total Cells Counted 100
[2018-10-07 06:48] LABS: Osmolality,Calculated 280.1 MOS/KG (273-304)
[2018-10-07 06:49] LABS: Anisocytosis 1+; Platelet Estimate Decreased
[2018-10-07] MEDS: VENLAFAXINE XR 37.5 MG CAPSULE PO SCH (09:58)
[2018-10-07] MEDS: FOLIC ACID 1 MG TABLET PO SCH (09:58)
[2018-10-07] MEDS: LACTOBACILLUS ACIDOPHILUS/BULGARICUS CAPLET PO SCH ×3 (09:58→23:23)
[2018-10-07] MEDS: MULTIVITAMIN (CENTRUM) TABLET PO SCH (09:58)
[2018-10-07] MEDS: SEVELAMER CARBONATE 800 MG TABLET PO SCH ×4 (09:59→23:24)
[2018-10-07] MEDS: GEMFIBROZIL 600 MG TABLET PO SCH ×2 (09:59→21:02)
[2018-10-07] MEDS: LISINOPRIL 10 MG TABLET PO SCH (09:59)
[2018-10-07] MEDS: FERROUS SULFATE 325 MG TABLET PO SCH (09:59)
[2018-10-07] MEDS: ZINC OXIDE PASTE 113 GM TUBE TOP SCH ×3 (09:59→21:01)
[2018-10-07] MEDS: LEVOTHYROXINE 200 MCG TABLET PO SCH (11:54)
[2018-10-07] MEDS: GABAPENTIN 300 MG CAPSULE PO SCH ×2 (21:00→23:23)
[2018-10-07] MEDS: ATORVASTATIN 10 MG TABLET PO SCH ×2 (21:01→23:23)
[2018-10-07] MEDS: INSULIN GLARGINE 100 UNIT/ML SUBCUT SCH (21:18)
[2018-10-08] MEDS: traMADol 50 MG TABLET PO SCH ×3 (01:42→16:31)
[2018-10-08] MEDS: AZTREONAM 500 MG in SODIUM CHLORIDE 0.9% 100 ML IV SCH ×2 (02:04→10:29)
[2018-10-08] MEDS: LEVOTHYROXINE 200 MCG TABLET PO SCH (06:26)
[2018-10-08] MEDS: LEVOTHYROXINE 50 MCG TABLET PO SCH (06:26)
[2018-10-08] MEDS: LISINOPRIL 10 MG TABLET PO SCH (08:11)
[2018-10-08] MEDS: FOLIC ACID 1 MG TABLET PO SCH (08:27)
[2018-10-08] MEDS: MULTIVITAMIN (CENTRUM) TABLET PO SCH (08:28)
[2018-10-08] MEDS: VENLAFAXINE XR 37.5 MG CAPSULE PO SCH (08:28)
[2018-10-08] MEDS: GEMFIBROZIL 600 MG TABLET PO SCH ×2 (08:28→20:50)
[2018-10-08] MEDS: SEVELAMER CARBONATE 800 MG TABLET PO SCH ×3 (08:28→20:50)
[2018-10-08] MEDS: FERROUS SULFATE 325 MG TABLET PO SCH (08:28)
[2018-10-08] MEDS: ZINC OXIDE PASTE 113 GM TUBE TOP SCH ×2 (08:28→20:51)
[2018-10-08] MEDS: LACTOBACILLUS ACIDOPHILUS/BULGARICUS CAPLET PO SCH ×2 (08:28→20:49)
[2018-10-08] MEDS ORDERED: POTASSIUM CHLORIDE 20 MEQ TABLET PO ONE (12:00)
[2018-10-08] MEDS: DOXYCYCLINE HYCLATE INJ 100 MG in SODIUM CHLORIDE 0.9% 100 ML IV SCH ×2 (12:50→23:19)
[2018-10-08] MEDS ORDERED: VANCOMYCIN INJ 750 MG in SODIUM CHLORIDE 0.9% 250 ML IV ONE (17:00)
[2018-10-08] MEDS ORDERED: VANCOMYCIN INJ 750 MG in SODIUM CHLORIDE 0.9% 250 ML IV PRN (17:00)
[2018-10-08] MEDS: ATORVASTATIN 10 MG TABLET PO SCH (20:50)
[2018-10-08] MEDS: GABAPENTIN 300 MG CAPSULE PO SCH (20:50)
[2018-10-08] MEDS: INSULIN GLARGINE 100 UNIT/ML SUBCUT SCH (20:52)
[2018-10-09] MEDS: traMADol 50 MG TABLET PO SCH ×3 (01:05→18:38)
[2018-10-09] MEDS: LEVOTHYROXINE 200 MCG TABLET PO SCH (06:29)
[2018-10-09] MEDS: LEVOTHYROXINE 50 MCG TABLET PO SCH (06:29)
[2018-10-09] MEDS: VENLAFAXINE XR 37.5 MG CAPSULE PO SCH (09:15)
[2018-10-09] MEDS: LISINOPRIL 10 MG TABLET PO SCH (09:15)
[2018-10-09] MEDS: MULTIVITAMIN (CENTRUM) TABLET PO SCH (09:15)
[2018-10-09] MEDS: GEMFIBROZIL 600 MG TABLET PO SCH ×2 (09:15→22:04)
[2018-10-09] MEDS: LACTOBACILLUS ACIDOPHILUS/BULGARICUS CAPLET PO SCH ×2 (09:15→22:03)
[2018-10-09] MEDS: FOLIC ACID 1 MG TABLET PO SCH (09:15)
[2018-10-09] MEDS: SEVELAMER CARBONATE 800 MG TABLET PO SCH ×3 (09:15→22:04)
[2018-10-09] MEDS: FERROUS SULFATE 325 MG TABLET PO SCH (09:16)
[2018-10-09] MEDS: ZINC OXIDE PASTE 113 GM TUBE TOP SCH ×2 (09:16→22:06)
[2018-10-09 09:20] LABS: Calcium 7.8 MG/DL (8.5-10.1); Osmolality,Calculated 278.4 MOS/KG (273-304)
[2018-10-09] MEDS: DOXYCYCLINE HYCLATE INJ 100 MG in SODIUM CHLORIDE 0.9% 100 ML IV SCH ×2 (11:21→23:25)
[2018-10-09] MEDS: GABAPENTIN 300 MG CAPSULE PO SCH (22:04)
[2018-10-09] MEDS: INSULIN GLARGINE 100 UNIT/ML SUBCUT SCH (22:05)
[2018-10-09] MEDS: ATORVASTATIN 10 MG TABLET PO SCH (22:05)
[2018-10-10] MEDS: traMADol 50 MG TABLET PO SCH ×3 (02:29→17:57)
[2018-10-10] MEDS: LEVOTHYROXINE 50 MCG TABLET PO SCH (06:41)
[2018-10-10] MEDS: LEVOTHYROXINE 200 MCG TABLET PO SCH (06:41)
[2018-10-10] MEDS: SEVELAMER CARBONATE 800 MG TABLET PO SCH ×3 (09:18→17:13)
[2018-10-10] MEDS: FOLIC ACID 1 MG TABLET PO SCH (09:18)
[2018-10-10] MEDS: MULTIVITAMIN (CENTRUM) TABLET PO SCH (09:18)
[2018-10-10] MEDS: LISINOPRIL 10 MG TABLET PO SCH (09:19)
[2018-10-10] MEDS: FERROUS SULFATE 325 MG TABLET PO SCH (09:20)
[2018-10-10] MEDS: VENLAFAXINE XR 37.5 MG CAPSULE PO SCH (09:20)
[2018-10-10] MEDS: GEMFIBROZIL 600 MG TABLET PO SCH ×2 (09:20→20:57)
[2018-10-10] MEDS: LACTOBACILLUS ACIDOPHILUS/BULGARICUS CAPLET PO SCH ×2 (09:20→20:57)
[2018-10-10] MEDS: ZINC OXIDE PASTE 113 GM TUBE TOP SCH ×2 (09:27→20:57)
[2018-10-10] MEDS: DOXYCYCLINE HYCLATE INJ 100 MG in SODIUM CHLORIDE 0.9% 100 ML IV SCH ×2 (12:12→22:21)
[2018-10-10] MEDS: traMADol 50 MG TABLET PO PRN ×2 (15:44→23:30)
[2018-10-10] MEDS: ATORVASTATIN 10 MG TABLET PO SCH (20:57)
[2018-10-10] MEDS: GABAPENTIN 300 MG CAPSULE PO SCH (20:57)
[2018-10-10] MEDS: INSULIN GLARGINE 100 UNIT/ML SUBCUT SCH (20:58)
[2018-10-11] MEDS: traMADol 50 MG TABLET PO SCH ×4 (01:51→16:30)
[2018-10-11] MEDS: LEVOTHYROXINE 50 MCG TABLET PO SCH (06:08)
[2018-10-11] MEDS: LEVOTHYROXINE 200 MCG TABLET PO SCH (06:08)
[2018-10-11 07:41] LABS: Basophils % 0.2 % (0.0-0.8); Eosinophils # 0.2 10*3/uL (0.0-0.87); Eosinophils % 1.2 % (0.00-10.9); Hematocrit 28.8 VOL% (35.7-47.0); Hemoglobin 9.3 GM/DL (12.0-16.0); Immature Granulocytes Absolute 0.41 #; Lymphocytes # 0.8 10*3/uL (1.4-4.0); Lymphocytes % 6.2 % (21.3-54.2); Mean Corpuscular HGB Conc 32.3 GM/DL (32-36); Mean Platelet Volume 10.7 FL (9.6-12.0); Monocytes % 5.8 % (1.7-12.7); Neutrophils % 83.6 % (38.7-73.9); Red Cell Distribution Width 17.3 % (9.3-17.3); White Blood Count 13.5 T/CUMM (4-12)
[2018-10-11] MEDS: LACTOBACILLUS ACIDOPHILUS/BULGARICUS CAPLET PO SCH ×2 (08:34→21:18)
[2018-10-11] MEDS: FERROUS SULFATE 325 MG TABLET PO SCH (08:34)
[2018-10-11] MEDS: FOLIC ACID 1 MG TABLET PO SCH (08:34)
[2018-10-11] MEDS: GEMFIBROZIL 600 MG TABLET PO SCH ×2 (08:34→21:18)
[2018-10-11] MEDS: LISINOPRIL 10 MG TABLET PO SCH (08:35)
[2018-10-11] MEDS: ZINC OXIDE PASTE 113 GM TUBE TOP SCH ×2 (08:35→21:19)
[2018-10-11] MEDS: MULTIVITAMIN (CENTRUM) TABLET PO SCH (08:35)
[2018-10-11] MEDS: NYSTATIN 500,000 UNIT/5 ML UDCUP SWISH/SWAL SCH ×4 (08:35→22:04)
[2018-10-11] MEDS: VENLAFAXINE XR 37.5 MG CAPSULE PO SCH (08:35)
[2018-10-11] MEDS: SEVELAMER CARBONATE 800 MG TABLET PO SCH ×3 (08:35→16:28)
[2018-10-11 09:04] LABS: Platelet Count 175 T/CUMM (130-400)
[2018-10-11 09:21] LABS: Hypochromasia 1+; Microcytosis 1+; Ovalocytes Slight
[2018-10-11 09:22] LABS: Misc Morphology 4; Platelet Estimate Adequate
[2018-10-11] MEDS: DOXYCYCLINE HYCLATE INJ 100 MG in SODIUM CHLORIDE 0.9% 100 ML IV SCH (16:28)
[2018-10-11] MEDS ORDERED: VANCOMYCIN INJ 750 MG in SODIUM CHLORIDE 0.9% 250 ML IV ONE (17:00)
[2018-10-11] MEDS: traMADol 50 MG TABLET PO PRN (21:18)
[2018-10-11] MEDS: ATORVASTATIN 10 MG TABLET PO SCH (21:18)
[2018-10-11] MEDS: GABAPENTIN 300 MG CAPSULE PO SCH (21:18)
[2018-10-11] MEDS: INSULIN GLARGINE 100 UNIT/ML SUBCUT SCH (21:19)
[2018-10-12] MEDS: traMADol 50 MG TABLET PO SCH ×3 (05:04→17:07)
[2018-10-12] MEDS: traMADol 50 MG TABLET PO PRN ×2 (05:23→11:24)
[2018-10-12] MEDS: DOXYCYCLINE HYCLATE INJ 100 MG in SODIUM CHLORIDE 0.9% 100 ML IV SCH ×2 (05:23→17:07)
[2018-10-12] MEDS: LEVOTHYROXINE 50 MCG TABLET PO SCH (06:00)
[2018-10-12] MEDS: LEVOTHYROXINE 200 MCG TABLET PO SCH (06:00)
[2018-10-12] MEDS: MULTIVITAMIN (CENTRUM) TABLET PO SCH (08:29)
[2018-10-12] MEDS: FOLIC ACID 1 MG TABLET PO SCH (08:29)
[2018-10-12] MEDS: GEMFIBROZIL 600 MG TABLET PO SCH ×2 (08:29→23:13)
[2018-10-12] MEDS: NYSTATIN 500,000 UNIT/5 ML UDCUP SWISH/SWAL SCH ×5 (08:29→23:17)
[2018-10-12] MEDS: SEVELAMER CARBONATE 800 MG TABLET PO SCH ×4 (08:29→17:07)
[2018-10-12] MEDS: VENLAFAXINE XR 37.5 MG CAPSULE PO SCH (08:30)
[2018-10-12] MEDS: LISINOPRIL 10 MG TABLET PO SCH (08:30)
[2018-10-12] MEDS: LACTOBACILLUS ACIDOPHILUS/BULGARICUS CAPLET PO SCH ×2 (08:30→23:12)
[2018-10-12] MEDS: FERROUS SULFATE 325 MG TABLET PO SCH (08:30)
[2018-10-12] MEDS: ZINC OXIDE PASTE 113 GM TUBE TOP SCH ×2 (08:30→23:16)
[2018-10-12] MEDS: GABAPENTIN 300 MG CAPSULE PO SCH (23:13)
[2018-10-12] MEDS: INSULIN GLARGINE 100 UNIT/ML SUBCUT SCH (23:13)
[2018-10-12] MEDS: ATORVASTATIN 10 MG TABLET PO SCH (23:13)
[2018-10-13] MEDS: LEVOTHYROXINE 50 MCG TABLET PO SCH (06:24)
[2018-10-13] MEDS: LEVOTHYROXINE 200 MCG TABLET PO SCH (06:24)
[2018-10-13] MEDS: DOXYCYCLINE HYCLATE INJ 100 MG in SODIUM CHLORIDE 0.9% 100 ML IV SCH ×2 (06:25→16:28)
[2018-10-13] MEDS: VENLAFAXINE XR 37.5 MG CAPSULE PO SCH (08:46)
[2018-10-13] MEDS: FOLIC ACID 1 MG TABLET PO SCH (08:46)
[2018-10-13] MEDS: MULTIVITAMIN (CENTRUM) TABLET PO SCH (08:46)
[2018-10-13] MEDS: FERROUS SULFATE 325 MG TABLET PO SCH (08:46)
[2018-10-13] MEDS: LISINOPRIL 10 MG TABLET PO SCH (08:46)
[2018-10-13] MEDS: GEMFIBROZIL 600 MG TABLET PO SCH (08:46)
[2018-10-13] MEDS: NYSTATIN 500,000 UNIT/5 ML UDCUP SWISH/SWAL SCH ×3 (08:46→16:30)
[2018-10-13] MEDS: LACTOBACILLUS ACIDOPHILUS/BULGARICUS CAPLET PO SCH (08:46)
[2018-10-13] MEDS: SEVELAMER CARBONATE 800 MG TABLET PO SCH ×3 (10:05→16:30)
[2018-10-13] MEDS: traMADol 50 MG TABLET PO PRN (10:56)
[2018-10-13] MEDS ORDERED: VANCOMYCIN INJ 750 MG in SODIUM CHLORIDE 0.9% 250 ML IV ONE (12:00)
[2018-10-13] MEDS: cloNIDine 0.3 MG/24 HR PATCH TRANSDERM SCH (13:23)
[2018-10-13] MEDS: ZINC OXIDE PASTE 113 GM TUBE TOP SCH (15:45)
[2018-10-13 22:28] VITALS: BP 143/81
== END 2018-10-13 21:12 | disposition hospice, home (50) | DRG 871 ==
LOC: EDBD → EDSEX → EDUNIT# → N.ED 17:47 → N.EDINP 10-05 00:52 → N.5E 10-05 01:07
PROVIDERS: ADMIT Internal Medicine; ATTEND Internal Medicine

== ENCOUNTER 2018-10-23 06:58 | Inpatient (IN) ==
[2018-10-23 08:54] LABS: Basophils % 0.3 % (0.0-0.8); Eosinophils # 0.1 10*3/uL (0.0-0.87); Eosinophils % 1.6 % (0.00-10.9); Hematocrit 22.4 VOL% (35.7-47.0); Hemoglobin 6.8 GM/DL (12.0-16.0); Immature Granulocytes Absolute 0.13 #; Lymphocytes # 0.9 10*3/uL (1.4-4.0); Lymphocytes % 13.4 % (21.3-54.2); Mean Corpuscular HGB Conc 30.4 GM/DL (32-36); Mean Corpuscular Volume 102.3 FL (87-102); Mean Platelet Volume 9.7 FL (9.6-12.0); Monocytes % 11.7 % (1.7-12.7); Platelet Count 163 T/CUMM (130-400); Red Blood Count 2.19 MC/CUMM (3.8-5.5); Red Cell Distribution Width 16.3 % (9.3-17.3); White Blood Count 6.4 T/CUMM (4-12)
[2018-10-23 09:04] LABS: Alanine Aminotransferase < 6 U/L (13-56); Albumin 2.2 G/DL (3.4-5.0); Alkaline Phosphatase 79 U/L (45-117); Aspartate Amino Transferase 20 U/L (0-37); Blood Urea Nitrogen 15 MG/DL (7-18); Calcium 7.7 MG/DL (8.5-10.1); Glucose 92 MG/DL (74-106); Osmolality,Calculated 273.8 MOS/KG (273-304); Total Protein 5.9 G/DL (6.4-8.3)
[2018-10-23] MEDS ORDERED: FUROSEMIDE 40 MG/4 ML VIAL IV STA (11:44)
[2018-10-23] MEDS ORDERED: DEXTROSE 10% 25 GM/250 ML BAG IV PRN (13:04)
[2018-10-23] MEDS ORDERED: GLUCAGON 1 MG VIAL IM PRN (13:04)
[2018-10-23] MEDS ORDERED: ACETAMINOPHEN 325 MG TABLET PO PRN (13:04)
[2018-10-23] MEDS ORDERED: ONDANSETRON 4 MG/2 ML VIAL IV PRN (13:04)
[2018-10-23] MEDS ORDERED: SODIUM CHLORIDE 0.9% 1,000 ML IV PRN (13:07)
[2018-10-23] MEDS ORDERED: traMADol 50 MG TABLET PO PRN (15:10)
[2018-10-23] MEDS ORDERED: ZALEPLON 5 MG CAPSULE PO PRN (15:11)
[2018-10-23] MEDS: INSULIN LISPRO 100 UNIT/ML SUBCUT SCH ×2 (16:08→21:01)
[2018-10-23] MEDS ORDERED: SIMETHICONE CHEW 125 MG TABLET PO PRN (19:13)
[2018-10-23] MEDS ORDERED: guaiFENesin 200 MG/10 ML UDCUP PO PRN (19:13)
[2018-10-23] MEDS ORDERED: MECLIZINE 25 MG TABLET PO PRN (19:13)
[2018-10-23] MEDS ORDERED: diphenhydrAMINE CAP 25 MG CAPSULE PO PRN (19:13)
[2018-10-23] MEDS ORDERED: SENNA 8.6 MG TABLET PO PRN (19:13)
[2018-10-23] MEDS ORDERED: NITROGLYCERIN SL 0.4 MG TABLET SL PRN (19:13)
[2018-10-23] MEDS ORDERED: BENZONATATE 100 MG CAPSULE PO PRN (19:13)
[2018-10-23] MEDS ORDERED: ZINC OXIDE PASTE 113 GM TUBE TOP PRN (19:13)
[2018-10-23] MEDS ORDERED: MENTHOL 4% TOP PRN (19:13)
[2018-10-23] MEDS ORDERED: POLYETHYLENE GLYCOL POWDER 17 GM PACK PO PRN (19:13)
[2018-10-23] MEDS ORDERED: ALBUTEROL 2.5 MG/3 ML NEB RESP TX PRN (19:13)
[2018-10-23] MEDS ORDERED: POLYVINYL ALCOHOL 1.4% OPH SOLN 15 ML BOTTLE BOTH EYES PRN (19:13)
[2018-10-23] MEDS: traMADol 50 MG TABLET PO PRN (20:58)
[2018-10-23] MEDS: OMEGA 3 ACID ETHYL ESTERS 1 GM CAPSULE PO SCH (20:59)
[2018-10-23] MEDS: ATORVASTATIN 10 MG TABLET PO SCH (20:59)
[2018-10-23] MEDS: DOCUSATE SODIUM 100 MG CAPSULE PO SCH (20:59)
[2018-10-23] MEDS: CYCLOBENZAPRINE 10 MG TABLET PO SCH (21:00)
[2018-10-23] MEDS: GABAPENTIN 100 MG CAPSULE PO SCH (21:00)
[2018-10-23] MEDS: INSULIN GLARGINE 100 UNIT/ML SUBCUT SCH (21:01)
[2018-10-23] MEDS: traMADol 50 MG TABLET PO SCH (21:02)
[2018-10-23] MEDS: SEVELAMER CARBONATE 800 MG TABLET PO SCH (21:05)
[2018-10-24 05:29] LABS: Basophils % 0.5 % (0.0-0.8); Eosinophils # 0.1 10*3/uL (0.0-0.87); Eosinophils % 1.9 % (0.00-10.9); Hematocrit 22.3 VOL% (35.7-47.0); Hemoglobin 6.8 GM/DL (12.0-16.0); Immature Granulocytes % 1.7 %; Lymphocytes # 0.9 10*3/uL (1.4-4.0); Lymphocytes % 15.3 % (21.3-54.2); Mean Corpuscular HGB Conc 30.5 GM/DL (32-36); Mean Corpuscular Volume 101.8 FL (87-102); Mean Platelet Volume 10.1 FL (9.6-12.0); Monocytes % 10.7 % (1.7-12.7); Neutrophils % 69.9 % (38.7-73.9); Platelet Count 169 T/CUMM (130-400); Red Blood Count 2.19 MC/CUMM (3.8-5.5); Red Cell Distribution Width 16.3 % (9.3-17.3); White Blood Count 5.9 T/CUMM (4-12)
[2018-10-24] MEDS: LEVOTHYROXINE 150 MCG TABLET PO SCH (06:01)
[2018-10-24] MEDS: INSULIN LISPRO 100 UNIT/ML SUBCUT SCH ×4 (08:12→22:14)
[2018-10-24] MEDS: OMEGA 3 ACID ETHYL ESTERS 1 GM CAPSULE PO SCH ×2 (09:56→22:12)
[2018-10-24] MEDS: MULTIVITAMIN (CENTRUM) TABLET PO SCH (09:57)
[2018-10-24] MEDS: traMADol 50 MG TABLET PO SCH ×3 (09:57→22:14)
[2018-10-24] MEDS: EZETIMIBE 10 MG TABLET PO SCH (09:57)
[2018-10-24] MEDS: CYCLOBENZAPRINE 10 MG TABLET PO SCH ×2 (09:57→22:13)
[2018-10-24] MEDS: FOLIC ACID 1 MG TABLET PO SCH (09:57)
[2018-10-24] MEDS: VENLAFAXINE 37.5 MG TABLET PO SCH (09:58)
[2018-10-24] MEDS: PANTOPRAZOLE 40 MG TABLET PO SCH (09:58)
[2018-10-24] MEDS: CLOPIDOGREL 75 MG TABLET PO SCH (09:58)
[2018-10-24] MEDS: GABAPENTIN 100 MG CAPSULE PO SCH ×3 (09:58→22:13)
[2018-10-24] MEDS: ASPIRIN EC 81 MG TABLET PO SCH (09:58)
[2018-10-24] MEDS: DOCUSATE SODIUM 100 MG CAPSULE PO SCH ×2 (09:58→22:14)
[2018-10-24] MEDS: FERROUS SULFATE 325 MG TABLET PO SCH (09:58)
[2018-10-24] MEDS: SEVELAMER CARBONATE 800 MG TABLET PO SCH ×2 (09:58→22:12)
[2018-10-24] MEDS ORDERED: VANCOMYCIN INJ 1,750 MG in SODIUM CHLORIDE 0.9% 500 ML IV ONE (10:00)
[2018-10-24] MEDS ORDERED: SODIUM CHLORIDE 0.9% 1,000 ML IV PRN (11:32)
[2018-10-24] MEDS: FUROSEMIDE 80 MG TABLET PO SCH (14:32)
[2018-10-24] MEDS: LISINOPRIL 5 MG TABLET PO SCH (14:33)
[2018-10-24] MEDS: ATORVASTATIN 10 MG TABLET PO SCH (22:13)
[2018-10-24] MEDS: traMADol 50 MG TABLET PO PRN (22:13)
[2018-10-24] MEDS: INSULIN GLARGINE 100 UNIT/ML SUBCUT SCH (22:14)
[2018-10-25] MEDS: LEVOTHYROXINE 150 MCG TABLET PO SCH (06:42)
[2018-10-25 08:10] LABS: Basophils % 0.6 % (0.0-0.8); Eosinophils # 0.2 10*3/uL (0.0-0.87); Eosinophils % 2.5 % (0.00-10.9); Hematocrit 33.5 VOL% (35.7-47.0); Immature Granulocytes Absolute 0.27 #; Lymphocytes % 14.1 % (21.3-54.2); Mean Corpuscular HGB Conc 31.9 GM/DL (32-36); Mean Corpuscular Volume 97.4 FL (87-102); Mean Platelet Volume 9.7 FL (9.6-12.0); NRBC # 0.03 10*3/uL; Neutrophils % 68.8 % (38.7-73.9); Platelet Count 206 T/CUMM (130-400); Red Cell Distribution Width 17.7 % (9.3-17.3); White Blood Count 6.8 T/CUMM (4-12)
[2018-10-25 08:30] LABS: Red Blood Count 3.44 MC/CUMM (3.8-5.5)
[2018-10-25 08:31] LABS: Hemoglobin 10.7 GM/DL (12.0-16.0)
[2018-10-25] MEDS: INSULIN LISPRO 100 UNIT/ML SUBCUT SCH ×2 (08:41→12:14)
[2018-10-25] MEDS: GABAPENTIN 100 MG CAPSULE PO SCH ×2 (08:42→14:13)
[2018-10-25] MEDS: EZETIMIBE 10 MG TABLET PO SCH (08:42)
[2018-10-25] MEDS: LISINOPRIL 5 MG TABLET PO SCH (08:42)
[2018-10-25] MEDS: OMEGA 3 ACID ETHYL ESTERS 1 GM CAPSULE PO SCH (08:43)
[2018-10-25] MEDS: FOLIC ACID 1 MG TABLET PO SCH (08:43)
[2018-10-25] MEDS: SEVELAMER CARBONATE 800 MG TABLET PO SCH (08:44)
[2018-10-25] MEDS: MULTIVITAMIN (CENTRUM) TABLET PO SCH (08:44)
[2018-10-25] MEDS: traMADol 50 MG TABLET PO SCH ×2 (08:44→14:13)
[2018-10-25] MEDS: FERROUS SULFATE 325 MG TABLET PO SCH (08:45)
[2018-10-25] MEDS: FUROSEMIDE 80 MG TABLET PO SCH (08:45)
[2018-10-25] MEDS: PANTOPRAZOLE 40 MG TABLET PO SCH (08:45)
[2018-10-25] MEDS: CYCLOBENZAPRINE 10 MG TABLET PO SCH (08:45)
[2018-10-25] MEDS: CLOPIDOGREL 75 MG TABLET PO SCH (08:45)
[2018-10-25] MEDS: DOCUSATE SODIUM 100 MG CAPSULE PO SCH (08:45)
[2018-10-25] MEDS: ASPIRIN EC 81 MG TABLET PO SCH (08:45)
[2018-10-25] MEDS: VENLAFAXINE 37.5 MG TABLET PO SCH (08:45)
[2018-10-25] MEDS ORDERED: VANCOMYCIN INJ 750 MG in SODIUM CHLORIDE 0.9% 250 ML IV PRN (09:00)
[2018-10-25 12:11] VITALS: BP 150/49
[2018-10-25] MEDS ORDERED: VANCOMYCIN INJ 750 MG in SODIUM CHLORIDE 0.9% 250 ML IV ONE (14:00)
== END 2018-10-25 15:35 | DRG 291 ==
LOC: EDUNIT# → N.ED 06:58 → N.EDINP 13:04 → N.TELEN 14:13
PROVIDERS: ADMIT Internal Medicine; ATTEND Internal Medicine

== ENCOUNTER 2018-11-30 09:32 | Observation (INO) ==
[2018-11-30 14:17] LABS: Basophils % 0.2 % (0.0-0.8); Eosinophils # 0.2 10*3/uL (0.0-0.87); Eosinophils % 1.7 % (0.00-10.9); Hematocrit 19.4 VOL% (35.7-47.0); Immature Granulocytes % 0.9 %; Immature Granulocytes Absolute 0.11 #; Lymphocytes % 8.6 % (21.3-54.2); Mean Corpuscular HGB Conc 30.9 GM/DL (32-36); Mean Corpuscular Volume 95.6 FL (87-102); Mean Platelet Volume 9.9 FL (9.6-12.0); Monocytes % 8.5 % (1.7-12.7); Neutrophils % 80.1 % (38.7-73.9); Platelet Count 203 T/CUMM (130-400); Red Blood Count 2.03 MC/CUMM (3.8-5.5); Red Cell Distribution Width 15.4 % (9.3-17.3); White Blood Count 12.1 T/CUMM (4-12)
[2018-11-30 14:32] LABS: Albumin 1.9 G/DL (3.4-5.0); Bilirubin,Total 0.5 MG/DL (0.2-1.0); Calcium 8.4 MG/DL (8.5-10.1); Total Protein 6.7 G/DL (6.4-8.3)
[2018-11-30] MEDS ORDERED: ALBUTEROL/IPRATROPIUM 3 ML NEB RESP TX STA ×2 (14:57→17:03)
[2018-11-30] MEDS ORDERED: SODIUM CHLORIDE 0.9% 1,000 ML IV PRN ×2 (15:53→17:27)
[2018-11-30] MEDS ORDERED: SIMETHICONE CHEW 125 MG TABLET PO PRN (16:50)
[2018-11-30] MEDS ORDERED: POLYETHYLENE GLYCOL POWDER 17 GM PACK PO PRN (16:50)
[2018-11-30] MEDS ORDERED: ALBUTEROL 2.5 MG/3 ML NEB RESP TX PRN (16:50)
[2018-11-30] MEDS ORDERED: MECLIZINE 25 MG TABLET PO PRN (16:50)
[2018-11-30] MEDS ORDERED: MENTHOL 4% TOP PRN (16:50)
[2018-11-30] MEDS ORDERED: ZINC OXIDE PASTE 113 GM TUBE TOP PRN (16:50)
[2018-11-30] MEDS ORDERED: ONDANSETRON 4 MG TABLET PO PRN (16:50)
[2018-11-30] MEDS ORDERED: diphenhydrAMINE CAP 25 MG CAPSULE PO PRN (16:50)
[2018-11-30] MEDS ORDERED: SENNA 8.6 MG TABLET PO PRN (16:50)
[2018-11-30] MEDS ORDERED: BENZONATATE 100 MG CAPSULE PO PRN (16:50)
[2018-11-30] MEDS ORDERED: POLYVINYL ALCOHOL 1.4% OPH SOLN 15 ML BOTTLE BOTH EYES PRN (16:50)
[2018-11-30] MEDS ORDERED: NITROGLYCERIN SL 0.4 MG TABLET SL PRN (16:50)
[2018-11-30] MEDS ORDERED: GLUCAGON 1 MG VIAL IM PRN ×2 (16:54→17:03)
[2018-11-30] MEDS ORDERED: DEXTROSE 10% 25 GM/250 ML BAG IV PRN ×2 (16:54→17:03)
[2018-11-30] MEDS ORDERED: traMADol 50 MG TABLET PO SCH (17:00)
[2018-11-30] MEDS ORDERED: ACETAMINOPHEN 325 MG TABLET PO PRN (17:03)
[2018-11-30] MEDS ORDERED: ONDANSETRON 4 MG/2 ML VIAL IV PRN (17:03)
[2018-11-30] MEDS: INSULIN REGULAR 100 UNIT/ML SUBCUT SCH (20:05)
[2018-11-30] MEDS: SEVELAMER CARBONATE 800 MG TABLET PO SCH (23:37)
[2018-11-30] MEDS: traMADol 50 MG TABLET PO SCH (23:37)
[2018-11-30] MEDS: OMEGA 3 ACID ETHYL ESTERS 1 GM CAPSULE PO SCH (23:37)
[2018-11-30] MEDS: ATORVASTATIN 10 MG TABLET PO SCH (23:41)
[2018-11-30] MEDS: CYCLOBENZAPRINE 10 MG TABLET PO SCH (23:43)
[2018-11-30] MEDS: ZINC OXIDE PASTE 113 GM TUBE TOP SCH (23:44)
[2018-12-01] MEDS: INSULIN REGULAR 100 UNIT/ML SUBCUT SCH ×4 (01:40→19:34)
[2018-12-01] MEDS: DOCUSATE SODIUM 100 MG CAPSULE PO SCH ×2 (01:40→11:18)
[2018-12-01] MEDS: GABAPENTIN 50 MG/ML 30 ML/BOTTLE PO SCH ×3 (01:41→16:24)
[2018-12-01] MEDS: LEVOTHYROXINE 150 MCG TABLET PO SCH (06:50)
[2018-12-01 08:35] LABS: Basophils % 0.3 % (0.0-0.8); Eosinophils # 0.2 10*3/uL (0.0-0.87); Eosinophils % 2.1 % (0.00-10.9); Hematocrit 30.2 VOL% (35.7-47.0); Immature Granulocytes % 1.3 %; Immature Granulocytes Absolute 0.13 #; Lymphocytes # 0.6 10*3/uL (1.4-4.0); Lymphocytes % 6.5 % (21.3-54.2); Mean Corpuscular HGB Conc 32.5 GM/DL (32-36); Mean Corpuscular Volume 89.3 FL (87-102); Mean Platelet Volume 10.4 FL (9.6-12.0); Neutrophils % 82.8 % (38.7-73.9); Red Cell Distribution Width 15.4 % (9.3-17.3); White Blood Count 9.8 T/CUMM (4-12)
[2018-12-01 08:44] LABS: Red Blood Count 3.38 MC/CUMM (3.8-5.5)
[2018-12-01 08:45] LABS: Hemoglobin 9.8 GM/DL (12.0-16.0); Platelet Count 159 T/CUMM (130-400)
[2018-12-01] MEDS: traMADol 50 MG TABLET PO SCH ×3 (11:17→22:52)
[2018-12-01] MEDS: SEVELAMER CARBONATE 800 MG TABLET PO SCH ×2 (11:17→22:52)
[2018-12-01] MEDS: VENLAFAXINE 37.5 MG TABLET PO SCH (11:17)
[2018-12-01] MEDS: OMEGA 3 ACID ETHYL ESTERS 1 GM CAPSULE PO SCH ×2 (11:17→22:51)
[2018-12-01] MEDS: FERROUS SULFATE 325 MG TABLET PO SCH (11:18)
[2018-12-01] MEDS: CYCLOBENZAPRINE 10 MG TABLET PO SCH (11:18)
[2018-12-01] MEDS: FUROSEMIDE 80 MG TABLET PO SCH (11:18)
[2018-12-01] MEDS: FOLIC ACID 1 MG TABLET PO SCH (11:18)
[2018-12-01] MEDS: EZETIMIBE 10 MG TABLET PO SCH (11:18)
[2018-12-01] MEDS: PANTOPRAZOLE 40 MG TABLET PO SCH (11:18)
[2018-12-01] MEDS: MULTIVITAMIN (CENTRUM) TABLET PO SCH (11:19)
[2018-12-01] MEDS: ZINC OXIDE PASTE 113 GM TUBE TOP SCH (14:04)
[2018-12-01] MEDS: LISINOPRIL 5 MG TABLET PO SCH (14:04)
[2018-12-01] MEDS: ATORVASTATIN 10 MG TABLET PO SCH (22:51)
[2018-12-02] MEDS: INSULIN REGULAR 100 UNIT/ML SUBCUT SCH ×3 (01:01→11:57)
[2018-12-02] MEDS: DOCUSATE SODIUM 100 MG CAPSULE PO SCH ×2 (01:16→09:45)
[2018-12-02] MEDS: ZINC OXIDE PASTE 113 GM TUBE TOP SCH ×2 (01:17→11:38)
[2018-12-02] MEDS: GABAPENTIN 50 MG/ML 30 ML/BOTTLE PO SCH ×2 (01:18→09:49)
[2018-12-02] MEDS: CYCLOBENZAPRINE 10 MG TABLET PO SCH ×2 (01:18→11:37)
[2018-12-02 05:43] LABS: Basophils # 0.1 10*3/uL (0.0-0.2); Basophils % 0.6 % (0.0-0.8); Eosinophils # 0.2 10*3/uL (0.0-0.87); Eosinophils % 2.1 % (0.00-10.9); Hematocrit 33.1 VOL% (35.7-47.0); Hemoglobin 10.7 GM/DL (12.0-16.0); Immature Granulocytes % 2.4 %; Immature Granulocytes Absolute 0.21 #; Lymphocytes # 0.8 10*3/uL (1.4-4.0); Lymphocytes % 8.9 % (21.3-54.2); Mean Corpuscular HGB Conc 32.3 GM/DL (32-36); Mean Corpuscular Volume 88.7 FL (87-102); Mean Platelet Volume 10.1 FL (9.6-12.0); Monocytes % 7.3 % (1.7-12.7); Neutrophils % 78.7 % (38.7-73.9); Platelet Count 154 T/CUMM (130-400); Red Blood Count 3.73 MC/CUMM (3.8-5.5); Red Cell Distribution Width 14.9 % (9.3-17.3); White Blood Count 8.9 T/CUMM (4-12)
[2018-12-02] MEDS: LEVOTHYROXINE 150 MCG TABLET PO SCH (06:44)
[2018-12-02] MEDS: SEVELAMER CARBONATE 800 MG TABLET PO SCH (09:43)
[2018-12-02] MEDS: PANTOPRAZOLE 40 MG TABLET PO SCH (09:43)
[2018-12-02] MEDS: OMEGA 3 ACID ETHYL ESTERS 1 GM CAPSULE PO SCH (09:43)
[2018-12-02] MEDS: EZETIMIBE 10 MG TABLET PO SCH (09:44)
[2018-12-02] MEDS: LISINOPRIL 5 MG TABLET PO SCH (09:44)
[2018-12-02] MEDS: FOLIC ACID 1 MG TABLET PO SCH (09:44)
[2018-12-02] MEDS: MULTIVITAMIN (CENTRUM) TABLET PO SCH (09:45)
[2018-12-02] MEDS: FUROSEMIDE 80 MG TABLET PO SCH (09:46)
[2018-12-02] MEDS: VENLAFAXINE 37.5 MG TABLET PO SCH (09:47)
[2018-12-02] MEDS: traMADol 50 MG TABLET PO SCH (09:48)
[2018-12-02] MEDS: FERROUS SULFATE 325 MG TABLET PO SCH (09:48)
[2018-12-02 11:44] VITALS: BP 181/73
== END 2018-12-02 12:23 ==
LOC: EDBD → EDUNIT# → N.ED 09:32 → N.EDINP 09:32 → N.5E 15:48
PROVIDERS: ADMIT Internal Medicine; ATTEND Internal Medicine

== ENCOUNTER 2018-12-21 14:50 | Inpatient (IN) ==
[2018-12-21] MEDS ORDERED: SODIUM CHLORIDE 0.9% 500 ML IV STA (15:05)
[2018-12-21 16:02] LABS: Basophils # 0.1 10*3/uL (0.0-0.2); Basophils % 0.6 % (0.0-0.8); Eosinophils # 0.3 10*3/uL (0.0-0.87); Eosinophils % 2.7 % (0.00-10.9); Hematocrit 27.8 VOL% (35.7-47.0); Hemoglobin 8.6 GM/DL (12.0-16.0); Immature Granulocytes % 1.1 %; Immature Granulocytes Absolute 0.14 #; Lymphocytes # 1.2 10*3/uL (1.4-4.0); Lymphocytes % 9.8 % (21.3-54.2); Mean Corpuscular HGB Conc 30.9 GM/DL (32-36); Mean Corpuscular Volume 96.5 FL (87-102); Mean Platelet Volume 9.8 FL (9.6-12.0); Monocytes % 6.9 % (1.7-12.7); Neutrophils % 78.9 % (38.7-73.9); Platelet Count 314 T/CUMM (130-400); Red Blood Count 2.88 MC/CUMM (3.8-5.5); Red Cell Distribution Width 19.3 % (9.3-17.3); White Blood Count 12.7 T/CUMM (4-12)
[2018-12-21 16:22] LABS: Calcium 7.4 MG/DL (8.5-10.1); Osmolality,Calculated 284.5 MOS/KG (273-304)
[2018-12-21] MEDS ORDERED: ONDANSETRON ODT 4 MG TABLET PO STA (16:29)
[2018-12-21] MEDS ORDERED: ONDANSETRON ODT 4 MG TABLET PO ONE (16:30)
[2018-12-21 17:49] LABS: Hematocrit 27.4 VOL% (35.7-47.0); Hemoglobin 8.4 GM/DL (12.0-16.0)
[2018-12-21] MEDS ORDERED: DEXTROSE 50% 25 GM/50 ML VIAL IV PRN (19:43)
[2018-12-21] MEDS ORDERED: GLUCAGON 1 MG VIAL IM PRN (19:43)
[2018-12-21] MEDS ORDERED: ACETAMINOPHEN 325 MG TABLET PO PRN (19:43)
[2018-12-21] MEDS: DOCUSATE SODIUM 100 MG CAPSULE PO SCH (22:11)
[2018-12-21] MEDS: INSULIN LISPRO 100 UNIT/ML SUBCUT SCH (22:11)
[2018-12-22 01:08] LABS: Hematocrit 22.4 VOL% (35.7-47.0); Hemoglobin 6.9 GM/DL (12.0-16.0)
[2018-12-22] MEDS ORDERED: POLYETHYLENE GLYCOL POWDER 17 GM PACK PO PRN (08:26)
[2018-12-22] MEDS ORDERED: MECLIZINE 25 MG TABLET PO PRN (08:26)
[2018-12-22] MEDS ORDERED: POLYVINYL ALCOHOL 1.4% OPH SOLN 15 ML BOTTLE BOTH EYES PRN (08:26)
[2018-12-22] MEDS ORDERED: BENZONATATE 100 MG CAPSULE PO PRN (08:26)
[2018-12-22] MEDS ORDERED: SENNA 8.6 MG TABLET PO PRN (08:26)
[2018-12-22] MEDS ORDERED: MENTHOL 4% TOP PRN (08:26)
[2018-12-22] MEDS ORDERED: SIMETHICONE CHEW 125 MG TABLET PO PRN (08:26)
[2018-12-22] MEDS ORDERED: NITROGLYCERIN SL 0.4 MG TABLET SL PRN (08:26)
[2018-12-22] MEDS ORDERED: diphenhydrAMINE CAP 25 MG CAPSULE PO PRN (08:26)
[2018-12-22] MEDS ORDERED: ALBUTEROL 2.5 MG/3 ML NEB RESP TX PRN (09:00)
[2018-12-22] MEDS: LEVOTHYROXINE 150 MCG TABLET PO SCH (11:20)
[2018-12-22] MEDS: INSULIN LISPRO 100 UNIT/ML SUBCUT SCH ×4 (11:20→22:43)
[2018-12-22] MEDS: traMADol 50 MG TABLET PO SCH ×2 (11:21→17:10)
[2018-12-22] MEDS: ASPIRIN EC 81 MG TABLET PO SCH (11:21)
[2018-12-22] MEDS: ZINC OXIDE PASTE 113 GM TUBE TOP SCH ×2 (11:22→22:44)
[2018-12-22] MEDS: DOCUSATE SODIUM 100 MG CAPSULE PO SCH ×2 (11:22→22:42)
[2018-12-22] MEDS: CYCLOBENZAPRINE 10 MG TABLET PO SCH ×2 (11:22→22:42)
[2018-12-22] MEDS: FERROUS SULFATE 325 MG TABLET PO SCH (11:22)
[2018-12-22] MEDS: VENLAFAXINE 37.5 MG TABLET PO SCH (11:22)
[2018-12-22] MEDS: MULTIVITAMIN (CENTRUM) TABLET PO SCH (11:22)
[2018-12-22] MEDS: FOLIC ACID 1 MG TABLET PO SCH (11:23)
[2018-12-22] MEDS: LISINOPRIL 5 MG TABLET PO SCH (11:23)
[2018-12-22] MEDS: PANTOPRAZOLE 40 MG TABLET PO SCH ×2 (11:23)
[2018-12-22] MEDS: OMEGA 3 ACID ETHYL ESTERS 1 GM CAPSULE PO SCH ×2 (11:23→22:41)
[2018-12-22] MEDS: GABAPENTIN 50 MG/ML 30 ML/BOTTLE PO SCH ×3 (11:23→22:45)
[2018-12-22] MEDS: FUROSEMIDE 80 MG TABLET PO SCH (11:23)
[2018-12-22] MEDS: EZETIMIBE 10 MG TABLET PO SCH (11:23)
[2018-12-22] MEDS ORDERED: SODIUM CHLORIDE 0.9% 1,000 ML IV PRN (12:31)
[2018-12-22] MEDS: ONDANSETRON 4 MG TABLET PO PRN (17:10)
[2018-12-22] MEDS: ATORVASTATIN 10 MG TABLET PO SCH (22:42)
[2018-12-23] MEDS: traMADol 50 MG TABLET PO SCH ×4 (00:39→18:21)
[2018-12-23] MEDS: LEVOTHYROXINE 150 MCG TABLET PO SCH (07:03)
[2018-12-23] MEDS ORDERED: VANCOMYCIN INJ 1,000 MG in SODIUM CHLORIDE 0.9% 250 ML IV ONE (07:54)
[2018-12-23] MEDS: INSULIN LISPRO 100 UNIT/ML SUBCUT SCH ×4 (08:20→20:51)
[2018-12-23] MEDS: DOCUSATE SODIUM 100 MG CAPSULE PO SCH ×2 (08:31→20:51)
[2018-12-23] MEDS: VENLAFAXINE 37.5 MG TABLET PO SCH (08:31)
[2018-12-23] MEDS: MULTIVITAMIN (CENTRUM) TABLET PO SCH (08:31)
[2018-12-23] MEDS: ASPIRIN EC 81 MG TABLET PO SCH (08:31)
[2018-12-23] MEDS: FUROSEMIDE 80 MG TABLET PO SCH (08:32)
[2018-12-23] MEDS: LISINOPRIL 5 MG TABLET PO SCH (08:32)
[2018-12-23] MEDS: OMEGA 3 ACID ETHYL ESTERS 1 GM CAPSULE PO SCH ×2 (08:32→20:42)
[2018-12-23] MEDS: GABAPENTIN 50 MG/ML 30 ML/BOTTLE PO SCH ×3 (08:32→20:42)
[2018-12-23] MEDS: FOLIC ACID 1 MG TABLET PO SCH (08:32)
[2018-12-23] MEDS: FERROUS SULFATE 325 MG TABLET PO SCH (08:32)
[2018-12-23] MEDS: CYCLOBENZAPRINE 10 MG TABLET PO SCH ×2 (08:32→20:42)
[2018-12-23] MEDS: PANTOPRAZOLE 40 MG TABLET PO SCH ×2 (08:32→08:33)
[2018-12-23] MEDS: EZETIMIBE 10 MG TABLET PO SCH (08:33)
[2018-12-23] MEDS: ZINC OXIDE PASTE 113 GM TUBE TOP SCH ×2 (08:34→20:42)
[2018-12-23 08:36] LABS: Calcium 7.7 MG/DL (8.5-10.1); Osmolality,Calculated 276.1 MOS/KG (273-304)
[2018-12-23 09:23] LABS: Basophils % 0.3 % (0.0-0.8); Eosinophils # 0.2 10*3/uL (0.0-0.87); Eosinophils % 3.8 % (0.00-10.9); Immature Granulocytes % 0.8 %; Immature Granulocytes Absolute 0.05 #; Lymphocytes % 15.9 % (21.3-54.2); Mean Corpuscular HGB Conc 31.3 GM/DL (32-36); Mean Corpuscular Volume 97.8 FL (87-102); Monocytes % 7.7 % (1.7-12.7); Neutrophils % 71.5 % (38.7-73.9); Platelet Count 167 T/CUMM (130-400); Red Cell Distribution Width 19.9 % (9.3-17.3)
[2018-12-23 09:27] LABS: Hematocrit 17.6 VOL% (35.7-47.0); Hemoglobin 5.5 GM/DL (12.0-16.0)
[2018-12-23] MEDS: ONDANSETRON 4 MG TABLET PO PRN (10:34)
[2018-12-23] MEDS ORDERED: BUPIVACAINE 0.5% /EPI 10 ML VIAL ONE (11:41)
[2018-12-23] MEDS ORDERED: HEPARIN 5,000 UNIT/1 ML VIAL ONE (11:41)
[2018-12-23] MEDS ORDERED: LIDOCAINE 1% 20 ML VIAL ONE (11:41)
[2018-12-23] MEDS ORDERED: THROMBIN TOPICAL (RECOMBINANT) 5,000 UNIT VIAL TOP ONE (11:57)
[2018-12-23] MEDS ORDERED: PROPOFOL 200 MG/20 ML VIAL IV ONE (14:06)
[2018-12-23] MEDS ORDERED: LABETALOL 100 MG/20 ML VIAL IV ONE (14:07)
[2018-12-23] MEDS ORDERED: SODIUM CHLORIDE 0.9% 250 ML IV ONE (14:07)
[2018-12-23] MEDS ORDERED: NITROGLYCERIN DRIP 50 MG/250 ML BOTTLE IV ONE (14:07)
[2018-12-23] MEDS ORDERED: ONDANSETRON 4 MG/2 ML VIAL ONE (15:59)
[2018-12-23] MEDS: ONDANSETRON 4 MG/2 ML VIAL IV PRN (16:00)
[2018-12-23] MEDS: ATORVASTATIN 10 MG TABLET PO SCH (20:42)
[2018-12-24] MEDS: traMADol 50 MG TABLET PO SCH ×2 (00:15→07:51)
[2018-12-24] MEDS: ONDANSETRON 4 MG/2 ML VIAL IV PRN (00:28)
[2018-12-24 05:13] LABS: Basophils # 0.1 10*3/uL (0.0-0.2); Basophils % 0.6 % (0.0-0.8); Eosinophils # 0.4 10*3/uL (0.0-0.87); Eosinophils % 4.2 % (0.00-10.9); Hematocrit 26.3 VOL% (35.7-47.0); Hemoglobin 8.5 GM/DL (12.0-16.0); Immature Granulocytes % 0.8 %; Immature Granulocytes Absolute 0.07 #; Mean Corpuscular HGB Conc 32.3 GM/DL (32-36); Mean Corpuscular Volume 94.9 FL (87-102); Monocytes % 7.8 % (1.7-12.7); Neutrophils % 74.6 % (38.7-73.9); Platelet Count 198 T/CUMM (130-400); Red Blood Count 2.77 MC/CUMM (3.8-5.5); Red Cell Distribution Width 18.3 % (9.3-17.3); White Blood Count 8.5 T/CUMM (4-12)
[2018-12-24] MEDS: LEVOTHYROXINE 150 MCG TABLET PO SCH (06:24)
[2018-12-24 08:20] VITALS: BP 133/42
[2018-12-24] MEDS: INSULIN LISPRO 100 UNIT/ML SUBCUT SCH ×2 (08:26→13:09)
[2018-12-24] MEDS: ZINC OXIDE PASTE 113 GM TUBE TOP SCH (08:27)
[2018-12-24] MEDS: MULTIVITAMIN (CENTRUM) TABLET PO SCH (08:27)
[2018-12-24] MEDS: DOCUSATE SODIUM 100 MG CAPSULE PO SCH (08:27)
[2018-12-24] MEDS: VENLAFAXINE 37.5 MG TABLET PO SCH (08:27)
[2018-12-24] MEDS: ASPIRIN EC 81 MG TABLET PO SCH (08:27)
[2018-12-24] MEDS: FERROUS SULFATE 325 MG TABLET PO SCH (08:28)
[2018-12-24] MEDS: FUROSEMIDE 80 MG TABLET PO SCH (08:30)
[2018-12-24] MEDS: OMEGA 3 ACID ETHYL ESTERS 1 GM CAPSULE PO SCH (08:30)
[2018-12-24] MEDS: CYCLOBENZAPRINE 10 MG TABLET PO SCH (08:30)
[2018-12-24] MEDS: FOLIC ACID 1 MG TABLET PO SCH (08:30)
[2018-12-24] MEDS: EZETIMIBE 10 MG TABLET PO SCH (08:31)
[2018-12-24] MEDS: PANTOPRAZOLE 40 MG TABLET PO SCH ×2 (08:31)
[2018-12-24] MEDS: GABAPENTIN 50 MG/ML 30 ML/BOTTLE PO SCH ×2 (08:31→15:10)
[2018-12-24] MEDS: LISINOPRIL 5 MG TABLET PO SCH (08:31)
[2018-12-24] MEDS: ONDANSETRON 4 MG TABLET PO PRN (09:09)
== END 2018-12-24 16:16 | DRG 270 ==
LOC: EDBD → EDSEX → EDUNIT# → N.ED 14:50 → N.EDINP 14:50 → N.3E 18:58
PROVIDERS: ADMIT Internal Medicine; ATTEND Internal Medicine
PROC: [UNRECOGNIZED PROCEDURE] (2018-12-23 15:45)

== ENCOUNTER 2019-02-12 16:43 | Observation (INO) ==
[2019-02-12 18:08] LABS: Albumin 3.2 G/DL (3.4-5.0); Bilirubin,Total 0.5 MG/DL (0.2-1.0); Calcium 8.3 MG/DL (8.5-10.1); Osmolality,Calculated 281.5 MOS/KG (273-304); Total Protein 6.8 G/DL (6.4-8.3)
[2019-02-12 18:14] LABS: Apearance,Urine CLOUDY (Clear); Bacteria,Urine Moderate /HPF (Few); Bilirubin,Urine Negative (Negative); Blood, Urine Moderate mg/dL (Negative); Glucose,Urine (UA) Negative (Negative); Ketones,Urine Negative (Negative); Nitrite,Urine Negative (Negative); Protein,Urine >=500 MG/DL; RBC,Urine 75 /HPF (0-4); Urine Color Yellow (Yellow); Urine Specific Gravity 1.014 (1.001-1.035); Urine Urobilinogen < 2.0 EU/DL (0.2-1.0); WBC,Urine 622 /HPF (0-6)
[2019-02-12 18:47] LABS: Basophils # 0.1 10*3/uL (0.0-0.2); Basophils % 0.6 % (0.0-0.8); Eosinophils # 0.3 10*3/uL (0.0-0.87); Eosinophils % 3.3 % (0.00-10.9); Hematocrit 35.8 VOL% (35.7-47.0); Immature Granulocytes % 0.7 %; Immature Granulocytes Absolute 0.06 #; Lymphocytes # 0.5 10*3/uL (1.4-4.0); Lymphocytes % 6.2 % (21.3-54.2); Mean Corpuscular HGB Conc 30.7 GM/DL (32-36); Mean Corpuscular Volume 93.7 FL (87-102); Mean Platelet Volume 10.3 FL (9.6-12.0); Monocytes % 4.9 % (1.7-12.7); Neutrophils % 84.3 % (38.7-73.9); Platelet Count 161 T/CUMM (130-400); Red Blood Count 3.82 MC/CUMM (3.8-5.5); Red Cell Distribution Width 15.4 % (9.3-17.3); White Blood Count 8.5 T/CUMM (4-12)
[2019-02-12] MEDS ORDERED: ALBUTEROL 1.25 MG/3 ML NEB RESP TX STA (19:11)
[2019-02-12] MEDS ORDERED: ALBUTEROL 2.5 MG/3 ML NEB RESP TX STA (19:13)
[2019-02-12] MEDS ORDERED: POTASSIUM CHLORIDE 20 MEQ TABLET PO STA (19:51)
[2019-02-12] MEDS ORDERED: FUROSEMIDE 100 MG/10 ML VIAL IV STA (19:55)
[2019-02-12] MEDS ORDERED: PIPERACILLIN/TAZOBACTAM 3,375 MG in SODIUM CHLORIDE 0.9% 100 ML IV STA ×2 (20:09→20:14)
[2019-02-12] MEDS ORDERED: GLUCAGON 1 MG VIAL IM PRN (20:31)
[2019-02-12] MEDS ORDERED: DEXTROSE 50% 25 GM/50 ML VIAL IV PRN (20:31)
[2019-02-12] MEDS ORDERED: ACETAMINOPHEN 325 MG TABLET PO PRN (20:31)
[2019-02-12] MEDS ORDERED: ONDANSETRON ODT 4 MG TABLET PO PRN (20:34)
[2019-02-12] MEDS ORDERED: BENZONATATE 100 MG CAPSULE PO PRN (20:34)
[2019-02-12] MEDS ORDERED: SENNA 8.6 MG TABLET PO PRN (20:34)
[2019-02-12] MEDS ORDERED: NITROGLYCERIN SL 0.4 MG TABLET SL PRN (20:34)
[2019-02-12] MEDS ORDERED: guaiFENesin 200 MG/10 ML UDCUP PO PRN (20:34)
[2019-02-12] MEDS ORDERED: POLYVINYL ALCOHOL 1.4% OPH SOLN 15 ML BOTTLE BOTH EYES PRN (20:34)
[2019-02-12] MEDS: ATORVASTATIN 10 MG TABLET PO SCH (23:17)
[2019-02-12] MEDS: OMEGA 3 ACID ETHYL ESTERS 1 GM CAPSULE PO SCH (23:17)
[2019-02-12] MEDS: DOCUSATE SODIUM 100 MG CAPSULE PO SCH (23:20)
[2019-02-13] MEDS: ONDANSETRON 4 MG/2 ML VIAL IV PRN ×3 (00:17→22:26)
[2019-02-13] MEDS: ERYTHROMYCIN 0.5% OPHT OINT 3.5 GM TUBE LEFT EYE SCH ×4 (01:55→22:36)
[2019-02-13] MEDS: LEVOTHYROXINE 150 MCG TABLET PO SCH (05:38)
[2019-02-13] MEDS: GABAPENTIN 50 MG/ML 30 ML/BOTTLE PO SCH ×4 (05:38→22:30)
[2019-02-13] MEDS: DOCUSATE SODIUM 100 MG CAPSULE PO SCH ×2 (08:26→22:29)
[2019-02-13] MEDS: OMEGA 3 ACID ETHYL ESTERS 1 GM CAPSULE PO SCH ×2 (08:26→22:28)
[2019-02-13] MEDS: FERROUS SULFATE 325 MG TABLET PO SCH (08:27)
[2019-02-13] MEDS: PANTOPRAZOLE 40 MG TABLET PO SCH (08:27)
[2019-02-13] MEDS: MULTIVITAMIN (CENTRUM) TABLET PO SCH (08:27)
[2019-02-13] MEDS: VENLAFAXINE 75 MG TABLET PO SCH (08:30)
[2019-02-13] MEDS: ASPIRIN EC 81 MG TABLET PO SCH (08:30)
[2019-02-13] MEDS: EZETIMIBE 10 MG TABLET PO SCH (08:31)
[2019-02-13] MEDS: FOLIC ACID 1 MG TABLET PO SCH (08:32)
[2019-02-13] MEDS ORDERED: FUROSEMIDE 80 MG TABLET PO SCH (09:00)
[2019-02-13] MEDS: ALBUTEROL 2.5 MG/3 ML NEB RESP TX PRN ×2 (14:42→20:37)
[2019-02-13] MEDS ORDERED: HEPARIN 10,000 UNIT/10 ML VIAL IV SCH (16:30)
[2019-02-13] MEDS ORDERED: METOPROLOL TARTRATE 25 MG TABLET PO SCH (17:00)
[2019-02-13] MEDS: LISINOPRIL 5 MG TABLET PO SCH (17:10)
[2019-02-13] MEDS: PIPERACILLIN/TAZOBACTAM 3,375 MG in SODIUM CHLORIDE 0.9% 100 ML IV SCH (22:29)
[2019-02-13] MEDS: INSULIN LISPRO 100 UNIT/ML SUBCUT SCH ×2 (22:29→22:36)
[2019-02-13] MEDS: FUROSEMIDE 40 MG/4 ML VIAL IV SCH (22:29)
[2019-02-13] MEDS: ATORVASTATIN 10 MG TABLET PO SCH (22:30)
[2019-02-14] MEDS: ALBUTEROL 2.5 MG/3 ML NEB RESP TX PRN ×4 (00:13→19:31)
[2019-02-14 04:56] LABS: Basophils % 0.7 % (0.0-0.8); Eosinophils # 0.2 10*3/uL (0.0-0.87); Eosinophils % 3.3 % (0.00-10.9); Hematocrit 34.8 VOL% (35.7-47.0); Hemoglobin 10.5 GM/DL (12.0-16.0); Immature Granulocytes % 0.3 %; Immature Granulocytes Absolute 0.02 #; Lymphocytes # 0.8 10*3/uL (1.4-4.0); Lymphocytes % 12.8 % (21.3-54.2); Mean Corpuscular HGB Conc 30.2 GM/DL (32-36); Mean Corpuscular Volume 93.5 FL (87-102); Mean Platelet Volume 10.7 FL (9.6-12.0); Monocytes % 7.5 % (1.7-12.7); Neutrophils % 75.4 % (38.7-73.9); Platelet Count 151 T/CUMM (130-400); Red Blood Count 3.72 MC/CUMM (3.8-5.5); Red Cell Distribution Width 15.4 % (9.3-17.3)
[2019-02-14 05:15] LABS: Calcium 8.1 MG/DL (8.5-10.1); Osmolality,Calculated 273.7 MOS/KG (273-304)
[2019-02-14] MEDS: PIPERACILLIN/TAZOBACTAM 3,375 MG in SODIUM CHLORIDE 0.9% 100 ML IV SCH (06:09)
[2019-02-14] MEDS: LEVOTHYROXINE 150 MCG TABLET PO SCH (06:09)
[2019-02-14] MEDS: INSULIN LISPRO 100 UNIT/ML SUBCUT SCH ×4 (07:44→21:58)
[2019-02-14] MEDS ORDERED: POTASSIUM CHLORIDE 20 MEQ TABLET PO ONE (09:00)
[2019-02-14] MEDS: FUROSEMIDE 40 MG/4 ML VIAL IV SCH ×2 (09:16→15:12)
[2019-02-14] MEDS: ERYTHROMYCIN 0.5% OPHT OINT 3.5 GM TUBE LEFT EYE SCH ×2 (09:17→21:58)
[2019-02-14] MEDS: EZETIMIBE 10 MG TABLET PO SCH (09:17)
[2019-02-14] MEDS: VENLAFAXINE 75 MG TABLET PO SCH (09:17)
[2019-02-14] MEDS: GABAPENTIN 50 MG/ML 30 ML/BOTTLE PO SCH ×3 (09:17→22:00)
[2019-02-14] MEDS: MULTIVITAMIN (CENTRUM) TABLET PO SCH (09:18)
[2019-02-14] MEDS: LISINOPRIL 5 MG TABLET PO SCH (09:18)
[2019-02-14] MEDS: METOPROLOL TARTRATE 50 MG TABLET PO SCH ×2 (09:19→21:59)
[2019-02-14] MEDS: OMEGA 3 ACID ETHYL ESTERS 1 GM CAPSULE PO SCH ×2 (09:19→21:59)
[2019-02-14] MEDS: FOLIC ACID 1 MG TABLET PO SCH (09:19)
[2019-02-14] MEDS: DOCUSATE SODIUM 100 MG CAPSULE PO SCH ×2 (09:19→22:00)
[2019-02-14] MEDS: FERROUS SULFATE 325 MG TABLET PO SCH (09:19)
[2019-02-14] MEDS: ASPIRIN EC 81 MG TABLET PO SCH (09:20)
[2019-02-14] MEDS: PANTOPRAZOLE 40 MG TABLET PO SCH (09:20)
[2019-02-14] MEDS: ONDANSETRON 4 MG/2 ML VIAL IV PRN ×2 (09:37→19:56)
[2019-02-14] MEDS ORDERED: HYDROCORTISONE 1% OINT 28.35 GM TUBE TOP PRN (12:29)
[2019-02-14 15:08] LABS: Calcium 7.9 MG/DL (8.5-10.1); Osmolality,Calculated 281.7 MOS/KG (273-304)
[2019-02-14] MEDS: ERTAPENEM 500 MG in SODIUM CHLORIDE 0.9% 100 ML IV SCH (15:12)
[2019-02-14] MEDS: HYDROCORTISONE 1% CREAM 28 GM TUBE TOP PRN (21:59)
[2019-02-14] MEDS: ATORVASTATIN 10 MG TABLET PO SCH (22:00)
[2019-02-15] MEDS: diphenhydrAMINE CAP 25 MG CAPSULE PO PRN ×2 (03:11→10:24)
[2019-02-15 04:47] LABS: Basophils # 0.1 10*3/uL (0.0-0.2); Basophils % 0.9 % (0.0-0.8); Eosinophils # 0.3 10*3/uL (0.0-0.87); Eosinophils % 4.5 % (0.00-10.9); Hemoglobin 10.7 GM/DL (12.0-16.0); Immature Granulocytes % 0.6 %; Immature Granulocytes Absolute 0.04 #; Lymphocytes # 0.8 10*3/uL (1.4-4.0); Lymphocytes % 12.6 % (21.3-54.2); Mean Corpuscular HGB Conc 29.7 GM/DL (32-36); Mean Corpuscular Volume 96.8 FL (87-102); Mean Platelet Volume 10.6 FL (9.6-12.0); Monocytes % 6.5 % (1.7-12.7); Neutrophils % 74.9 % (38.7-73.9); Platelet Count 185 T/CUMM (130-400); Red Blood Count 3.72 MC/CUMM (3.8-5.5); Red Cell Distribution Width 15.9 % (9.3-17.3); White Blood Count 6.6 T/CUMM (4-12)
[2019-02-15 05:00] LABS: Calcium 8.1 MG/DL (8.5-10.1); Osmolality,Calculated 276.8 MOS/KG (273-304)
[2019-02-15] MEDS: ALBUTEROL 2.5 MG/3 ML NEB RESP TX PRN ×3 (05:08→12:02)
[2019-02-15] MEDS: LEVOTHYROXINE 150 MCG TABLET PO SCH (06:49)
[2019-02-15] MEDS: INSULIN LISPRO 100 UNIT/ML SUBCUT SCH ×2 (08:46→13:09)
[2019-02-15] MEDS ORDERED: POTASSIUM CHLORIDE 20 MEQ TABLET PO ONE (09:00)
[2019-02-15] MEDS ORDERED: METOPROLOL TARTRATE 100 MG TABLET PO SCH (09:00)
[2019-02-15] MEDS ORDERED: GENTAMICIN INJ 80 MG in PREMIX 1 EACH IV ONE (10:00)
[2019-02-15] MEDS: FUROSEMIDE 40 MG/4 ML VIAL IV SCH (10:23)
[2019-02-15] MEDS: PANTOPRAZOLE 40 MG TABLET PO SCH (10:24)
[2019-02-15] MEDS: FERROUS SULFATE 325 MG TABLET PO SCH (10:24)
[2019-02-15] MEDS: VENLAFAXINE 75 MG TABLET PO SCH (10:25)
[2019-02-15] MEDS: EZETIMIBE 10 MG TABLET PO SCH (10:25)
[2019-02-15] MEDS: MULTIVITAMIN (CENTRUM) TABLET PO SCH (10:25)
[2019-02-15] MEDS: OMEGA 3 ACID ETHYL ESTERS 1 GM CAPSULE PO SCH (10:25)
[2019-02-15] MEDS: ASPIRIN EC 81 MG TABLET PO SCH (10:25)
[2019-02-15] MEDS: DOCUSATE SODIUM 100 MG CAPSULE PO SCH (10:27)
[2019-02-15] MEDS: FOLIC ACID 1 MG TABLET PO SCH (10:28)
[2019-02-15] MEDS: GABAPENTIN 50 MG/ML 30 ML/BOTTLE PO SCH ×2 (10:28→15:19)
[2019-02-15] MEDS: ERYTHROMYCIN 0.5% OPHT OINT 3.5 GM TUBE LEFT EYE SCH (10:46)
[2019-02-15] MEDS: ONDANSETRON 4 MG/2 ML VIAL IV PRN (10:47)
[2019-02-15 12:15] VITALS: BP 150/52
[2019-02-15] MEDS: ERTAPENEM 500 MG in SODIUM CHLORIDE 0.9% 100 ML IV SCH (13:09)
[2019-02-15] MEDS: HYDROCORTISONE 1% CREAM 28 GM TUBE TOP PRN (13:09)
[2019-02-16] MEDS ORDERED: LISINOPRIL 5 MG TABLET PO SCH (09:00)
== END 2019-02-15 15:17 ==
LOC: EDUNIT# → EDBD → N.ED 16:43 → N.EDINP 16:43 → N.2E 21:27
PROVIDERS: ADMIT Internal Medicine; ATTEND Internal Medicine

== ENCOUNTER 2019-02-27 10:46 | Inpatient (IN) ==
[2019-02-27] MEDS ORDERED: DEXTROSE 50% 25 GM/50 ML SYRINGE IV ONE (11:12)
[2019-02-27] MEDS ORDERED: DEXTROSE 50% 25 GM/50 ML VIAL IV STA (11:14)
[2019-02-27] MEDS ORDERED: hydrALAZINE 20 MG/1 ML VIAL IV STA (11:14)
[2019-02-27 12:18] LABS: Basophils # 0.1 10*3/uL (0.0-0.2); Basophils % 0.7 % (0.0-0.8); Eosinophils # 0.2 10*3/uL (0.0-0.87); Eosinophils % 3.1 % (0.00-10.9); Hematocrit 37.4 VOL% (35.7-47.0); Hemoglobin 11.5 GM/DL (12.0-16.0); Immature Granulocytes % 0.4 %; Immature Granulocytes Absolute 0.03 #; Lymphocytes # 0.8 10*3/uL (1.4-4.0); Lymphocytes % 11.8 % (21.3-54.2); Mean Corpuscular HGB Conc 30.7 GM/DL (32-36); Mean Corpuscular Volume 95.9 FL (87-102); Mean Platelet Volume 10.8 FL (9.6-12.0); Platelet Count 155 T/CUMM (130-400); Red Cell Distribution Width 16.1 % (9.3-17.3); White Blood Count 6.9 T/CUMM (4-12)
[2019-02-27 12:29] LABS: INR 1.1; PT Patient Result 12.3 SECS (9.6-12.2)
[2019-02-27 12:39] LABS: Alanine Aminotransferase < 9 U/L (13-56); Albumin 3.3 G/DL (3.4-5.0); Alkaline Phosphatase 66 U/L (45-117); Aspartate Amino Transferase 15 U/L (0-37); Blood Urea Nitrogen 20 MG/DL (7-18); Calcium 8.1 MG/DL (8.5-10.1); Estimated Glom Filtration Rate 14 ML/MIN; Glucose 112 MG/DL (74-106); Osmolality,Calculated 284.3 MOS/KG (273-304); Total Protein 6.7 G/DL (6.4-8.3)
[2019-02-27 12:47] LABS: Apearance,Urine CLEAR (Clear); Bacteria,Urine Occasional /HPF (Few); Bilirubin,Urine Negative (Negative); Blood, Urine Negative (Negative); Glucose,Urine (UA) 150 mg/dL (Negative); Ketones,Urine Negative (Negative); Nitrite,Urine Negative (Negative); Protein,Urine >=500 MG/DL; RBC,Urine <1 /HPF (0-4); Squamous Epithelial Cell,Urine Occasional /HPF (0-10); Urine Specific Gravity 1.015 (1.001-1.035); Urine Urobilinogen < 2.0 EU/DL (0.2-1.0); WBC,Urine 1 /HPF (0-6)
[2019-02-27 12:48] LABS: Urine Color Dark yellow (Yellow)
[2019-02-27 12:53] LABS: Barbiturates Screen,Urine Negative (Negative); Benzodiazepines Screen,Urine Negative (Negative); Cannabinoid Screen,Urine Negative (Negative); Opiate Screen,Urine Negative (Negative); Phencyclidine Screen,Urine Negative (Negative)
[2019-02-27] MEDS ORDERED: VANCOMYCIN INJ 1,000 MG in SODIUM CHLORIDE 0.9% 250 ML IV ONE ×2 (16:14→18:21)
[2019-02-27] MEDS ORDERED: LEVOFLOXACIN INJ 500 MG in PREMIX 1 EACH IV ONE (16:24)
[2019-02-27] MEDS ORDERED: ONDANSETRON 4 MG/2 ML VIAL IV PRN (16:24)
[2019-02-27] MEDS ORDERED: DEXTROSE 50% 25 GM/50 ML VIAL IV PRN (16:24)
[2019-02-27] MEDS ORDERED: ACETAMINOPHEN 325 MG TABLET PO PRN (16:24)
[2019-02-27] MEDS ORDERED: cloNIDine 0.1 MG TABLET PO PRN (16:32)
[2019-02-27] MEDS: INSULIN REGULAR 100 UNIT/ML SUBCUT SCH (17:37)
[2019-02-27] MEDS: DOCUSATE SODIUM 100 MG CAPSULE PO SCH (20:15)
[2019-02-28] MEDS: INSULIN REGULAR 100 UNIT/ML SUBCUT SCH ×4 (00:03→17:34)
[2019-02-28 06:57] LABS: Bilirubin,Total 0.5 MG/DL (0.2-1.0); Calcium 8.5 MG/DL (8.5-10.1); Osmolality,Calculated 275.8 MOS/KG (273-304); Risk Ratio 3.86; Total Protein 6.6 G/DL (6.4-8.3); VLDL CHOLESTEROL 36.4 MG/DL
[2019-02-28 07:10] LABS: Basophils # 0.1 10*3/uL (0.0-0.2); Basophils % 0.8 % (0.0-0.8); Eosinophils # 0.2 10*3/uL (0.0-0.87); Eosinophils % 2.8 % (0.00-10.9); Hematocrit 38.1 VOL% (35.7-47.0); Hemoglobin 11.6 GM/DL (12.0-16.0); Immature Granulocytes % 0.3 %; Immature Granulocytes Absolute 0.02 #; Lymphocytes # 0.7 10*3/uL (1.4-4.0); Lymphocytes % 11.1 % (21.3-54.2); Mean Corpuscular HGB Conc 30.4 GM/DL (32-36); Mean Platelet Volume 10.5 FL (9.6-12.0); Monocytes % 6.3 % (1.7-12.7); Neutrophils % 78.7 % (38.7-73.9); Platelet Count 139 T/CUMM (130-400); Red Blood Count 3.97 MC/CUMM (3.8-5.5); White Blood Count 6.4 T/CUMM (4-12)
[2019-02-28] MEDS ORDERED: VANCOMYCIN INJ 1,000 MG in SODIUM CHLORIDE 0.9% 250 ML IV PRN (08:13)
[2019-02-28] MEDS ORDERED: SENNA 8.6 MG TABLET PO PRN (08:32)
[2019-02-28] MEDS ORDERED: SIMETHICONE CHEW 125 MG TABLET PO PRN (08:32)
[2019-02-28] MEDS ORDERED: BENZONATATE 100 MG CAPSULE PO PRN (08:32)
[2019-02-28] MEDS ORDERED: POLYVINYL ALCOHOL 1.4% OPH SOLN 15 ML BOTTLE BOTH EYES PRN (08:32)
[2019-02-28] MEDS ORDERED: ALBUTEROL 2.5 MG/3 ML NEB RESP TX PRN (08:32)
[2019-02-28] MEDS ORDERED: MECLIZINE 25 MG TABLET PO PRN (08:32)
[2019-02-28] MEDS ORDERED: MENTHOL TOP PRN (08:32)
[2019-02-28] MEDS ORDERED: NITROGLYCERIN SL 0.4 MG TABLET SL PRN (08:32)
[2019-02-28] MEDS ORDERED: POLYETHYLENE GLYCOL POWDER 17 GM PACK PO PRN (08:32)
[2019-02-28] MEDS ORDERED: ZINC OXIDE TOP SCH (09:00)
[2019-02-28] MEDS: MULTIVITAMIN (CENTRUM) TABLET PO SCH (09:52)
[2019-02-28] MEDS: FOLIC ACID 1 MG TABLET PO SCH (09:52)
[2019-02-28] MEDS: lisinopriL 5 MG TABLET PO SCH (09:52)
[2019-02-28] MEDS: EZETIMIBE 10 MG TABLET PO SCH (09:52)
[2019-02-28] MEDS: OMEGA 3 ACID ETHYL ESTERS 1 GM CAPSULE PO SCH ×2 (09:52→20:56)
[2019-02-28] MEDS: DOCUSATE SODIUM 100 MG CAPSULE PO SCH ×2 (09:53→20:56)
[2019-02-28] MEDS: SEVELAMER CARBONATE 800 MG TABLET PO SCH ×3 (09:53→17:15)
[2019-02-28] MEDS: traMADol 50 MG TABLET PO SCH ×2 (09:53→17:15)
[2019-02-28] MEDS: FERROUS SULFATE 325 MG TABLET PO SCH (09:53)
[2019-02-28] MEDS: PANTOPRAZOLE 40 MG TABLET PO SCH ×2 (09:54→09:56)
[2019-02-28] MEDS: METOPROLOL TARTRATE 100 MG TABLET PO SCH ×2 (09:54→20:57)
[2019-02-28] MEDS: FUROSEMIDE 80 MG TABLET PO SCH (09:54)
[2019-02-28] MEDS: ASPIRIN EC 81 MG TABLET PO SCH (09:55)
[2019-02-28] MEDS: GABAPENTIN 50 MG/ML 30 ML/BOTTLE PO SCH ×3 (09:55→23:45)
[2019-02-28] MEDS: VENLAFAXINE 37.5 MG TABLET PO SCH (09:55)
[2019-02-28] MEDS: CYCLOBENZAPRINE 10 MG TABLET PO SCH ×2 (09:55→20:57)
[2019-02-28 12:07] LABS: Hepatitis B Surface Ag Quant < 0.10 Index; Hepatitis B Surface Ag Result Negative (Negative)
[2019-02-28] MEDS ORDERED: VANCOMYCIN INJ 1,000 MG in SODIUM CHLORIDE 0.9% 250 ML IV ONE (17:00)
[2019-02-28] MEDS ORDERED: HEPARIN 10,000 UNIT/10 ML VIAL IV SCH (17:00)
[2019-02-28] MEDS ORDERED: GLUCOSE GEL 15 GM TUBE PO PRN (18:38)
[2019-02-28] MEDS ORDERED: DEXTROSE 10% 250 ML BAG IV PRN (18:39)
[2019-02-28] MEDS: ATORVASTATIN 10 MG TABLET PO SCH (20:56)
[2019-02-28] MEDS: ZINC OXIDE 16% PASTE 57 GM TUBE TOP SCH (23:45)
[2019-03-01] MEDS: GLUCAGON 1 MG VIAL IM PRN ×2 (01:17→05:55)
[2019-03-01] MEDS: INSULIN REGULAR 100 UNIT/ML SUBCUT SCH ×4 (01:21→17:09)
[2019-03-01] MEDS: traMADol 50 MG TABLET PO SCH ×3 (01:22→17:19)
[2019-03-01] MEDS: LEVOTHYROXINE 200 MCG TABLET PO SCH (06:19)
[2019-03-01] MEDS: lisinopriL 5 MG TABLET PO SCH (08:54)
[2019-03-01] MEDS: FERROUS SULFATE 325 MG TABLET PO SCH (08:54)
[2019-03-01] MEDS: OMEGA 3 ACID ETHYL ESTERS 1 GM CAPSULE PO SCH ×2 (08:55→21:31)
[2019-03-01] MEDS: EZETIMIBE 10 MG TABLET PO SCH (08:55)
[2019-03-01] MEDS: ASPIRIN EC 81 MG TABLET PO SCH (08:55)
[2019-03-01] MEDS: DOCUSATE SODIUM 100 MG CAPSULE PO SCH ×2 (08:55→21:31)
[2019-03-01] MEDS: MULTIVITAMIN (CENTRUM) TABLET PO SCH (08:55)
[2019-03-01] MEDS: SEVELAMER CARBONATE 800 MG TABLET PO SCH ×3 (08:55→17:19)
[2019-03-01] MEDS: PANTOPRAZOLE 40 MG TABLET PO SCH ×2 (08:55→10:43)
[2019-03-01] MEDS: FOLIC ACID 1 MG TABLET PO SCH (08:55)
[2019-03-01] MEDS: METOPROLOL TARTRATE 100 MG TABLET PO SCH ×2 (08:55→21:31)
[2019-03-01] MEDS: FUROSEMIDE 80 MG TABLET PO SCH (08:56)
[2019-03-01] MEDS: VENLAFAXINE 37.5 MG TABLET PO SCH (08:56)
[2019-03-01] MEDS: CYCLOBENZAPRINE 10 MG TABLET PO SCH ×2 (08:56→21:31)
[2019-03-01] MEDS ORDERED: LEVOFLOXACIN INJ 500 MG in PREMIX 1 EACH IV SCH (09:00)
[2019-03-01] MEDS: ZINC OXIDE 16% PASTE 57 GM TUBE TOP SCH ×2 (11:06→23:04)
[2019-03-01] MEDS: GABAPENTIN 50 MG/ML 30 ML/BOTTLE PO SCH ×4 (11:34→21:31)
[2019-03-01] MEDS ORDERED: HYDROCORTISONE 1% CREAM 28 GM TUBE TOP PRN (11:54)
[2019-03-01] MEDS: NYSTATIN POWDER 15 GM BOTTLE TOP SCH ×2 (17:19→21:31)
[2019-03-01] MEDS: ATORVASTATIN 10 MG TABLET PO SCH (21:31)
[2019-03-02] MEDS: INSULIN REGULAR 100 UNIT/ML SUBCUT SCH ×4 (00:01→17:43)
[2019-03-02] MEDS: traMADol 50 MG TABLET PO SCH ×3 (00:45→17:42)
[2019-03-02] MEDS: LEVOTHYROXINE 200 MCG TABLET PO SCH (06:16)
[2019-03-02] MEDS: OMEGA 3 ACID ETHYL ESTERS 1 GM CAPSULE PO SCH ×2 (08:31→21:54)
[2019-03-02] MEDS: EZETIMIBE 10 MG TABLET PO SCH (08:31)
[2019-03-02] MEDS: FOLIC ACID 1 MG TABLET PO SCH (08:32)
[2019-03-02] MEDS: ASPIRIN EC 81 MG TABLET PO SCH (08:32)
[2019-03-02] MEDS: VENLAFAXINE 37.5 MG TABLET PO SCH (08:32)
[2019-03-02] MEDS: SEVELAMER CARBONATE 800 MG TABLET PO SCH ×3 (08:32→17:42)
[2019-03-02] MEDS: DOCUSATE SODIUM 100 MG CAPSULE PO SCH ×2 (08:33→21:54)
[2019-03-02] MEDS: MULTIVITAMIN (CENTRUM) TABLET PO SCH (08:33)
[2019-03-02] MEDS: FERROUS SULFATE 325 MG TABLET PO SCH (08:33)
[2019-03-02] MEDS: FUROSEMIDE 80 MG TABLET PO SCH (08:33)
[2019-03-02] MEDS: PANTOPRAZOLE 40 MG TABLET PO SCH ×2 (08:33→08:46)
[2019-03-02] MEDS: NYSTATIN POWDER 15 GM BOTTLE TOP SCH ×2 (08:34→21:54)
[2019-03-02] MEDS: ZINC OXIDE 16% PASTE 57 GM TUBE TOP SCH ×2 (08:34→21:54)
[2019-03-02] MEDS: lisinopriL 5 MG TABLET PO SCH (08:46)
[2019-03-02] MEDS: METOPROLOL TARTRATE 100 MG TABLET PO SCH ×2 (08:46→21:54)
[2019-03-02] MEDS: ATORVASTATIN 10 MG TABLET PO SCH (21:54)
[2019-03-02] MEDS: diphenhydrAMINE CAP 25 MG CAPSULE PO PRN (21:54)
[2019-03-03] MEDS: INSULIN REGULAR 100 UNIT/ML SUBCUT SCH ×4 (00:08→17:11)
[2019-03-03] MEDS: traMADol 50 MG TABLET PO SCH ×3 (01:49→17:11)
[2019-03-03 05:50] LABS: Albumin 2.9 G/DL (3.4-5.0); Bilirubin,Total 0.4 MG/DL (0.2-1.0); Calcium 8.1 MG/DL (8.5-10.1); Osmolality,Calculated 281.4 MOS/KG (273-304); Total Protein 6.6 G/DL (6.4-8.3)
[2019-03-03] MEDS: LEVOTHYROXINE 200 MCG TABLET PO SCH (06:16)
[2019-03-03] MEDS: MULTIVITAMIN (CENTRUM) TABLET PO SCH (10:54)
[2019-03-03] MEDS: SEVELAMER CARBONATE 800 MG TABLET PO SCH ×3 (10:54→17:11)
[2019-03-03] MEDS: lisinopriL 5 MG TABLET PO SCH (10:54)
[2019-03-03] MEDS: FOLIC ACID 1 MG TABLET PO SCH (10:54)
[2019-03-03] MEDS: ASPIRIN EC 81 MG TABLET PO SCH (10:54)
[2019-03-03] MEDS: VENLAFAXINE 37.5 MG TABLET PO SCH (10:55)
[2019-03-03] MEDS: PANTOPRAZOLE 40 MG TABLET PO SCH ×2 (10:55→10:57)
[2019-03-03] MEDS: OMEGA 3 ACID ETHYL ESTERS 1 GM CAPSULE PO SCH ×2 (10:55→21:09)
[2019-03-03] MEDS: FERROUS SULFATE 325 MG TABLET PO SCH (10:56)
[2019-03-03] MEDS: METOPROLOL TARTRATE 100 MG TABLET PO SCH ×2 (10:56→21:10)
[2019-03-03] MEDS: FUROSEMIDE 80 MG TABLET PO SCH (10:56)
[2019-03-03] MEDS: EZETIMIBE 10 MG TABLET PO SCH (10:58)
[2019-03-03] MEDS: ZINC OXIDE 16% PASTE 57 GM TUBE TOP SCH ×2 (11:05→21:10)
[2019-03-03] MEDS: NYSTATIN POWDER 15 GM BOTTLE TOP SCH ×2 (11:05→21:19)
[2019-03-03] MEDS: DOCUSATE SODIUM 100 MG CAPSULE PO SCH ×2 (11:51→21:10)
[2019-03-03] MEDS: ONDANSETRON 4 MG TABLET PO PRN (19:26)
[2019-03-03] MEDS: diphenhydrAMINE CAP 25 MG CAPSULE PO PRN (19:29)
[2019-03-03] MEDS: ATORVASTATIN 10 MG TABLET PO SCH (21:10)
[2019-03-04] MEDS: INSULIN REGULAR 100 UNIT/ML SUBCUT SCH ×3 (00:25→14:14)
[2019-03-04] MEDS: traMADol 50 MG TABLET PO SCH ×2 (02:26→10:42)
[2019-03-04] MEDS: LEVOTHYROXINE 200 MCG TABLET PO SCH (05:23)
[2019-03-04] MEDS: diphenhydrAMINE CAP 25 MG CAPSULE PO PRN (05:55)
[2019-03-04] MEDS: ONDANSETRON 4 MG TABLET PO PRN (05:55)
[2019-03-04] MEDS: DOCUSATE SODIUM 100 MG CAPSULE PO SCH (10:42)
[2019-03-04] MEDS: OMEGA 3 ACID ETHYL ESTERS 1 GM CAPSULE PO SCH (10:42)
[2019-03-04] MEDS: MULTIVITAMIN (CENTRUM) TABLET PO SCH (10:42)
[2019-03-04] MEDS: VENLAFAXINE 37.5 MG TABLET PO SCH (10:43)
[2019-03-04] MEDS: SEVELAMER CARBONATE 800 MG TABLET PO SCH ×2 (10:43→14:14)
[2019-03-04] MEDS: FOLIC ACID 1 MG TABLET PO SCH (10:43)
[2019-03-04] MEDS: EZETIMIBE 10 MG TABLET PO SCH (10:43)
[2019-03-04] MEDS: ASPIRIN EC 81 MG TABLET PO SCH (10:43)
[2019-03-04] MEDS: FUROSEMIDE 80 MG TABLET PO SCH (10:43)
[2019-03-04] MEDS: FERROUS SULFATE 325 MG TABLET PO SCH (10:44)
[2019-03-04] MEDS: ZINC OXIDE 16% PASTE 57 GM TUBE TOP SCH (10:44)
[2019-03-04] MEDS: PANTOPRAZOLE 40 MG TABLET PO SCH ×2 (10:44)
[2019-03-04] MEDS: NYSTATIN POWDER 15 GM BOTTLE TOP SCH (10:44)
[2019-03-04] MEDS: lisinopriL 5 MG TABLET PO SCH (10:47)
[2019-03-04] MEDS: METOPROLOL TARTRATE 100 MG TABLET PO SCH (10:48)
[2019-03-04 15:21] VITALS: BP 157/80
== END 2019-03-04 15:42 | disposition home or self-care (01) | DRG 947 ==
LOC: EDUNIT# → N.ED 10:46 → N.EDINP 13:24 → N.5E 15:04
PROVIDERS: ADMIT Internal Medicine; ATTEND Internal Medicine

== ENCOUNTER 2019-04-04 09:07 | Inpatient (IN) ==
[2019-04-04 09:42] LABS: Basophils % 0.3 % (0.0-0.8); Eosinophils # 0.3 10*3/uL (0.0-0.87); Eosinophils % 5.4 % (0.00-10.9); Hematocrit 38.4 VOL% (35.7-47.0); Hemoglobin 12.1 GM/DL (12.0-16.0); Immature Granulocytes % 0.3 %; Immature Granulocytes Absolute 0.02 #; Lymphocytes # 0.8 10*3/uL (1.4-4.0); Lymphocytes % 12.8 % (21.3-54.2); Mean Corpuscular HGB Conc 31.5 GM/DL (32-36); Mean Corpuscular Volume 93.2 FL (87-102); Mean Platelet Volume 10.5 FL (9.6-12.0); Monocytes % 7.3 % (1.7-12.7); Neutrophils % 73.9 % (38.7-73.9); Platelet Count 131 T/CUMM (130-400); Red Blood Count 4.12 MC/CUMM (3.8-5.5); Red Cell Distribution Width 17.5 % (9.3-17.3); White Blood Count 6.2 T/CUMM (4-12)
[2019-04-04 09:52] LABS: WBC,Urine 38878 /HPF (0-6)
[2019-04-04 09:53] LABS: Apearance,Urine Turbid (Clear); Bilirubin,Urine Negative (Negative); Blood, Urine Trace mg/dL (Negative); Glucose,Urine (UA) Negative (Negative); Ketones,Urine Negative (Negative); Nitrite,Urine Negative (Negative); Protein,Urine 100 MG/DL; Urine Color Yellow (Yellow); Urine Specific Gravity 1.005 (1.001-1.035); Urine Urobilinogen 0.2 EU/DL (0.2-1.0)
[2019-04-04 10:13] LABS: Bilirubin,Total 0.5 MG/DL (0.2-1.0); Calcium 8.5 MG/DL (8.5-10.1); Total Protein 6.8 G/DL (6.4-8.3)
[2019-04-04] MEDS ORDERED: VANCOMYCIN INJ 750 MG in SODIUM CHLORIDE 0.9% 250 ML IV STA (10:41)
[2019-04-04] MEDS ORDERED: cefTRIAXone 1,000 MG in SODIUM CHLORIDE 0.9% 100 ML IV STA (10:41)
[2019-04-04] MEDS ORDERED: ACETAMINOPHEN 325 MG TABLET PO PRN (10:43)
[2019-04-04] MEDS ORDERED: ALBUTEROL/IPRATROPIUM 3 ML NEB RESP TX PRN (13:37)
[2019-04-04] MEDS ORDERED: VANCOMYCIN INJ 750 MG in SODIUM CHLORIDE 0.9% 250 ML IV ONE (15:00)
[2019-04-04] MEDS: ALBUTEROL/IPRATROPIUM 3 ML NEB RESP TX SCH (19:10)
[2019-04-04] MEDS: DOCUSATE SODIUM 100 MG CAPSULE PO SCH (21:04)
[2019-04-05] MEDS: ALBUTEROL/IPRATROPIUM 3 ML NEB RESP TX SCH ×4 (00:20→19:30)
[2019-04-05] MEDS: METOPROLOL SUCCINATE XL 100 MG TABLET PO SCH (05:55)
[2019-04-05 06:34] LABS: Basophils % 0.4 % (0.0-0.8); Eosinophils # 0.1 10*3/uL (0.0-0.87); Eosinophils % 2.5 % (0.00-10.9); Hematocrit 36.7 VOL% (35.7-47.0); Hemoglobin 11.4 GM/DL (12.0-16.0); Immature Granulocytes % 0.2 %; Immature Granulocytes Absolute 0.01 #; Lymphocytes # 0.9 10*3/uL (1.4-4.0); Lymphocytes % 20.4 % (21.3-54.2); Mean Corpuscular HGB Conc 31.1 GM/DL (32-36); Mean Corpuscular Volume 94.8 FL (87-102); Mean Platelet Volume 10.7 FL (9.6-12.0); Monocytes % 13.2 % (1.7-12.7); Neutrophils % 63.3 % (38.7-73.9); Platelet Count 106 T/CUMM (130-400); Red Blood Count 3.87 MC/CUMM (3.8-5.5); Red Cell Distribution Width 17.1 % (9.3-17.3); White Blood Count 4.5 T/CUMM (4-12)
[2019-04-05 06:48] LABS: Calcium 8.2 MG/DL (8.5-10.1); Osmolality,Calculated 280.5 MOS/KG (273-304)
[2019-04-05] MEDS ORDERED: MEROPENEM 500 MG in SODIUM CHLORIDE 0.9% 100 ML IV ONE (08:30)
[2019-04-05] MEDS ORDERED: NITROGLYCERIN SL 0.4 MG TABLET SL PRN (08:43)
[2019-04-05] MEDS ORDERED: MECLIZINE 25 MG TABLET PO PRN (08:43)
[2019-04-05] MEDS ORDERED: SENNA 8.6 MG TABLET PO PRN (08:43)
[2019-04-05] MEDS ORDERED: NON-FORMULARY MEDICATION (Albuterol Sulfate [Ventolin Hfa] 2 PUFF) INH PRN (08:43)
[2019-04-05] MEDS ORDERED: BENZONATATE 100 MG CAPSULE PO PRN (08:43)
[2019-04-05] MEDS ORDERED: SIMETHICONE CHEW 125 MG TABLET PO PRN (09:15)
[2019-04-05] MEDS: EZETIMIBE 10 MG TABLET PO SCH (09:58)
[2019-04-05] MEDS: FERROUS SULFATE 325 MG TABLET PO SCH (09:58)
[2019-04-05] MEDS: ASPIRIN EC 81 MG TABLET PO SCH (09:59)
[2019-04-05] MEDS: DOCUSATE SODIUM 100 MG CAPSULE PO SCH ×2 (09:59→21:15)
[2019-04-05] MEDS: VENLAFAXINE 37.5 MG TABLET PO SCH (09:59)
[2019-04-05] MEDS: FUROSEMIDE 80 MG TABLET PO SCH (09:59)
[2019-04-05] MEDS: lisinopriL 5 MG TABLET PO SCH (09:59)
[2019-04-05] MEDS: PANTOPRAZOLE 40 MG TABLET PO SCH (09:59)
[2019-04-05] MEDS: FOLIC ACID 1 MG TABLET PO SCH (09:59)
[2019-04-05] MEDS: SEVELAMER CARBONATE 800 MG TABLET PO SCH ×2 (12:40→17:45)
[2019-04-05] MEDS: OMEGA 3 ACID ETHYL ESTERS 1 GM CAPSULE PO SCH (21:15)
[2019-04-05] MEDS: ATORVASTATIN 10 MG TABLET PO SCH (21:15)
[2019-04-05] MEDS: ZINC OXIDE PASTE 113 GM TUBE TOP SCH (21:21)
[2019-04-06] MEDS: ALBUTEROL/IPRATROPIUM 3 ML NEB RESP TX SCH ×4 (00:45→19:32)
[2019-04-06] MEDS: LEVOTHYROXINE 200 MCG TABLET PO SCH (06:06)
[2019-04-06] MEDS: DOCUSATE SODIUM 100 MG CAPSULE PO SCH ×2 (08:42→21:43)
[2019-04-06] MEDS: lisinopriL 5 MG TABLET PO SCH (08:43)
[2019-04-06] MEDS: ASPIRIN EC 81 MG TABLET PO SCH (08:55)
[2019-04-06] MEDS: METOPROLOL SUCCINATE XL 100 MG TABLET PO SCH (08:55)
[2019-04-06] MEDS: FOLIC ACID 1 MG TABLET PO SCH (08:55)
[2019-04-06] MEDS: PANTOPRAZOLE 40 MG TABLET PO SCH (08:55)
[2019-04-06] MEDS: EZETIMIBE 10 MG TABLET PO SCH (08:55)
[2019-04-06] MEDS: SEVELAMER CARBONATE 800 MG TABLET PO SCH ×3 (08:55→16:54)
[2019-04-06] MEDS: FUROSEMIDE 80 MG TABLET PO SCH (08:55)
[2019-04-06] MEDS: VENLAFAXINE 37.5 MG TABLET PO SCH (08:55)
[2019-04-06] MEDS: MULTIVITAMIN (CENTRUM) TABLET PO SCH (08:55)
[2019-04-06] MEDS: FERROUS SULFATE 325 MG TABLET PO SCH (08:55)
[2019-04-06] MEDS: OMEGA 3 ACID ETHYL ESTERS 1 GM CAPSULE PO SCH ×2 (08:55→21:43)
[2019-04-06] MEDS: ZINC OXIDE PASTE 113 GM TUBE TOP SCH ×2 (08:56→21:43)
[2019-04-06] MEDS ORDERED: HEPARIN 10,000 UNIT/10 ML VIAL IV PRN (11:09)
[2019-04-06 14:17] LABS: Hepatitis B Core IgM Quant 0.06 Index; Hepatitis B Surface Ag Quant < 0.10 Index; Hepatitis B Surface Ag Result Negative (Negative); Hepatitis C Virus Ab Quant 0.06 Index; Hepatitis C Virus Ab Result Negative (Negative)
[2019-04-06] MEDS: MEROPENEM 500 MG in SODIUM CHLORIDE 0.9% 100 ML IV SCH (16:54)
[2019-04-06] MEDS: ONDANSETRON 4 MG/2 ML VIAL IV PRN (16:55)
[2019-04-06] MEDS: VANCOMYCIN INJ 1,000 MG in SODIUM CHLORIDE 0.9% 250 ML IV SCH (17:48)
[2019-04-06] MEDS: ATORVASTATIN 10 MG TABLET PO SCH (21:43)
[2019-04-07] MEDS: ALBUTEROL/IPRATROPIUM 3 ML NEB RESP TX SCH ×4 (00:59→19:47)
[2019-04-07] MEDS: LEVOTHYROXINE 200 MCG TABLET PO SCH (06:22)
[2019-04-07] MEDS: EZETIMIBE 10 MG TABLET PO SCH (09:46)
[2019-04-07] MEDS: ASPIRIN EC 81 MG TABLET PO SCH (09:46)
[2019-04-07] MEDS: FOLIC ACID 1 MG TABLET PO SCH (09:46)
[2019-04-07] MEDS: lisinopriL 5 MG TABLET PO SCH (09:46)
[2019-04-07] MEDS: VENLAFAXINE 37.5 MG TABLET PO SCH (09:46)
[2019-04-07] MEDS: OMEGA 3 ACID ETHYL ESTERS 1 GM CAPSULE PO SCH ×2 (09:46→22:28)
[2019-04-07] MEDS: FERROUS SULFATE 325 MG TABLET PO SCH (09:47)
[2019-04-07] MEDS: ZINC OXIDE PASTE 113 GM TUBE TOP SCH ×2 (09:47→22:29)
[2019-04-07] MEDS: DOCUSATE SODIUM 100 MG CAPSULE PO SCH ×2 (09:47→22:28)
[2019-04-07] MEDS: FUROSEMIDE 80 MG TABLET PO SCH (09:47)
[2019-04-07] MEDS: PANTOPRAZOLE 40 MG TABLET PO SCH (09:47)
[2019-04-07] MEDS: MULTIVITAMIN (CENTRUM) TABLET PO SCH (09:47)
[2019-04-07] MEDS: SEVELAMER CARBONATE 800 MG TABLET PO SCH ×3 (09:47→18:35)
[2019-04-07] MEDS: METOPROLOL SUCCINATE XL 100 MG TABLET PO SCH (09:47)
[2019-04-07] MEDS: MEROPENEM 500 MG in SODIUM CHLORIDE 0.9% 100 ML IV SCH (18:35)
[2019-04-07] MEDS: ATORVASTATIN 10 MG TABLET PO SCH (22:28)
[2019-04-08] MEDS: diphenhydrAMINE CAP 50 MG CAPSULE PO PRN ×2 (00:19→21:10)
[2019-04-08] MEDS: ALBUTEROL/IPRATROPIUM 3 ML NEB RESP TX SCH ×4 (01:02→19:31)
[2019-04-08] MEDS: LEVOTHYROXINE 200 MCG TABLET PO SCH (05:50)
[2019-04-08] MEDS: DOCUSATE SODIUM 100 MG CAPSULE PO SCH ×2 (14:25→21:10)
[2019-04-08] MEDS: MULTIVITAMIN (CENTRUM) TABLET PO SCH (14:25)
[2019-04-08] MEDS: SEVELAMER CARBONATE 800 MG TABLET PO SCH ×3 (14:26→16:33)
[2019-04-08] MEDS: ASPIRIN EC 81 MG TABLET PO SCH (14:26)
[2019-04-08] MEDS: FUROSEMIDE 80 MG TABLET PO SCH (14:26)
[2019-04-08] MEDS: EZETIMIBE 10 MG TABLET PO SCH (14:26)
[2019-04-08] MEDS: FERROUS SULFATE 325 MG TABLET PO SCH (14:26)
[2019-04-08] MEDS: OMEGA 3 ACID ETHYL ESTERS 1 GM CAPSULE PO SCH ×2 (14:26→21:10)
[2019-04-08] MEDS: ZINC OXIDE PASTE 113 GM TUBE TOP SCH ×2 (14:27→21:10)
[2019-04-08] MEDS: METOPROLOL SUCCINATE XL 100 MG TABLET PO SCH (14:27)
[2019-04-08] MEDS: lisinopriL 5 MG TABLET PO SCH (14:27)
[2019-04-08] MEDS: PANTOPRAZOLE 40 MG TABLET PO SCH (14:27)
[2019-04-08] MEDS: FOLIC ACID 1 MG TABLET PO SCH (14:27)
[2019-04-08] MEDS: VENLAFAXINE 37.5 MG TABLET PO SCH (14:27)
[2019-04-08] MEDS: MEROPENEM 500 MG in SODIUM CHLORIDE 0.9% 100 ML IV SCH (16:33)
[2019-04-08] MEDS: VANCOMYCIN INJ 1,000 MG in SODIUM CHLORIDE 0.9% 250 ML IV SCH (16:38)
[2019-04-08] MEDS: ATORVASTATIN 10 MG TABLET PO SCH (21:10)
[2019-04-09] MEDS: ALBUTEROL/IPRATROPIUM 3 ML NEB RESP TX SCH ×5 (00:46→23:59)
[2019-04-09 05:56] LABS: Basophils % 0.4 % (0.0-0.8); Eosinophils # 0.2 10*3/uL (0.0-0.87); Eosinophils % 4.2 % (0.00-10.9); Hematocrit 35.4 VOL% (35.7-47.0); Hemoglobin 11.3 GM/DL (12.0-16.0); Immature Granulocytes % 0.4 %; Immature Granulocytes Absolute 0.02 #; Lymphocytes # 0.7 10*3/uL (1.4-4.0); Lymphocytes % 14.6 % (21.3-54.2); Mean Corpuscular HGB Conc 31.9 GM/DL (32-36); Mean Corpuscular Volume 91.7 FL (87-102); Mean Platelet Volume 11.6 FL (9.6-12.0); Monocytes % 11.2 % (1.7-12.7); Neutrophils % 69.2 % (38.7-73.9); Platelet Count 92 T/CUMM (130-400); Red Blood Count 3.86 MC/CUMM (3.8-5.5); Red Cell Distribution Width 15.8 % (9.3-17.3)
[2019-04-09 06:19] LABS: Calcium 8.5 MG/DL (8.5-10.1); Osmolality,Calculated 266.7 MOS/KG (273-304)
[2019-04-09 06:33] LABS: Band Neutrophils 3 % (0-10); Eosinophils 2 % (0-10); Lymphocytes 15 % (20-55); Platelet Estimate Decreased; Segmented Neutrophils 68 % (50-85); Total Cells Counted 100
[2019-04-09 06:34] LABS: Anisocytosis 2+; Tear Drop Cells Few
[2019-04-09] MEDS: LEVOTHYROXINE 200 MCG TABLET PO SCH (06:35)
[2019-04-09] MEDS: ASPIRIN EC 81 MG TABLET PO SCH (10:19)
[2019-04-09] MEDS: METOPROLOL SUCCINATE XL 100 MG TABLET PO SCH (10:19)
[2019-04-09] MEDS: VENLAFAXINE 37.5 MG TABLET PO SCH (10:19)
[2019-04-09] MEDS: SEVELAMER CARBONATE 800 MG TABLET PO SCH ×3 (10:19→16:01)
[2019-04-09] MEDS: OMEGA 3 ACID ETHYL ESTERS 1 GM CAPSULE PO SCH ×2 (10:19→20:00)
[2019-04-09] MEDS: FOLIC ACID 1 MG TABLET PO SCH (10:19)
[2019-04-09] MEDS: lisinopriL 5 MG TABLET PO SCH (10:19)
[2019-04-09] MEDS: DOCUSATE SODIUM 100 MG CAPSULE PO SCH ×2 (10:19→20:00)
[2019-04-09] MEDS: MULTIVITAMIN (CENTRUM) TABLET PO SCH (10:19)
[2019-04-09] MEDS: FERROUS SULFATE 325 MG TABLET PO SCH (10:20)
[2019-04-09] MEDS: ZINC OXIDE PASTE 113 GM TUBE TOP SCH ×2 (10:20→20:01)
[2019-04-09] MEDS: EZETIMIBE 10 MG TABLET PO SCH (10:20)
[2019-04-09] MEDS: FUROSEMIDE 80 MG TABLET PO SCH (10:20)
[2019-04-09] MEDS: PANTOPRAZOLE 40 MG TABLET PO SCH (10:20)
[2019-04-09] MEDS: amLODIPine 5 MG TABLET PO SCH (15:55)
[2019-04-09] MEDS: MEROPENEM 500 MG in SODIUM CHLORIDE 0.9% 100 ML IV SCH (16:01)
[2019-04-09] MEDS: ATORVASTATIN 10 MG TABLET PO SCH (20:00)
[2019-04-09] MEDS: diphenhydrAMINE CAP 50 MG CAPSULE PO PRN (20:07)
[2019-04-09] MEDS: ONDANSETRON 4 MG/2 ML VIAL IV PRN (20:07)
[2019-04-10] MEDS: ONDANSETRON 4 MG/2 ML VIAL IV PRN ×3 (01:09→21:03)
[2019-04-10] MEDS: diphenhydrAMINE CAP 50 MG CAPSULE PO PRN ×2 (01:11→08:45)
[2019-04-10 05:34] LABS: Basophils % 0.5 % (0.0-0.8); Eosinophils # 0.4 10*3/uL (0.0-0.87); Eosinophils % 5.1 % (0.00-10.9); Hematocrit 39.5 VOL% (35.7-47.0); Hemoglobin 12.9 GM/DL (12.0-16.0); Immature Granulocytes % 0.3 %; Immature Granulocytes Absolute 0.02 #; Lymphocytes # 0.8 10*3/uL (1.4-4.0); Lymphocytes % 10.5 % (21.3-54.2); Mean Corpuscular HGB Conc 32.7 GM/DL (32-36); Mean Corpuscular Volume 90.6 FL (87-102); Mean Platelet Volume 11.6 FL (9.6-12.0); Monocytes % 9.7 % (1.7-12.7); Neutrophils % 73.9 % (38.7-73.9); Platelet Count 136 T/CUMM (130-400); Red Blood Count 4.36 MC/CUMM (3.8-5.5); White Blood Count 7.5 T/CUMM (4-12)
[2019-04-10 06:03] LABS: Calcium 8.6 MG/DL (8.5-10.1); Osmolality,Calculated 274.5 MOS/KG (273-304)
[2019-04-10] MEDS: LEVOTHYROXINE 200 MCG TABLET PO SCH (06:19)
[2019-04-10] MEDS: ALBUTEROL/IPRATROPIUM 3 ML NEB RESP TX SCH ×4 (07:00→19:17)
[2019-04-10] MEDS: amLODIPine 5 MG TABLET PO SCH (08:44)
[2019-04-10] MEDS: OMEGA 3 ACID ETHYL ESTERS 1 GM CAPSULE PO SCH ×2 (08:44→21:01)
[2019-04-10] MEDS: SEVELAMER CARBONATE 800 MG TABLET PO SCH ×3 (08:44→16:25)
[2019-04-10] MEDS: MULTIVITAMIN (CENTRUM) TABLET PO SCH (08:44)
[2019-04-10] MEDS: VENLAFAXINE 37.5 MG TABLET PO SCH (08:45)
[2019-04-10] MEDS: ASPIRIN EC 81 MG TABLET PO SCH (08:45)
[2019-04-10] MEDS: lisinopriL 5 MG TABLET PO SCH (08:45)
[2019-04-10] MEDS: METOPROLOL SUCCINATE XL 100 MG TABLET PO SCH (08:45)
[2019-04-10] MEDS: FERROUS SULFATE 325 MG TABLET PO SCH (08:45)
[2019-04-10] MEDS: PANTOPRAZOLE 40 MG TABLET PO SCH (08:45)
[2019-04-10] MEDS: EZETIMIBE 10 MG TABLET PO SCH (08:45)
[2019-04-10] MEDS: FOLIC ACID 1 MG TABLET PO SCH (08:45)
[2019-04-10] MEDS: DOCUSATE SODIUM 100 MG CAPSULE PO SCH ×2 (09:28→21:02)
[2019-04-10] MEDS: FUROSEMIDE 80 MG TABLET PO SCH (09:28)
[2019-04-10] MEDS: ZINC OXIDE PASTE 113 GM TUBE TOP SCH ×2 (09:28→23:37)
[2019-04-10] MEDS: MEROPENEM 500 MG in SODIUM CHLORIDE 0.9% 100 ML IV SCH (16:25)
[2019-04-10] MEDS: ATORVASTATIN 10 MG TABLET PO SCH (21:02)
[2019-04-10] MEDS: VANCOMYCIN 50 MG/ML 60 ML/BOTTLE PO SCH (23:37)
[2019-04-11] MEDS: ALBUTEROL/IPRATROPIUM 3 ML NEB RESP TX SCH ×4 (00:19→19:43)
[2019-04-11] MEDS: LEVOTHYROXINE 200 MCG TABLET PO SCH (05:50)
[2019-04-11] MEDS: VANCOMYCIN 50 MG/ML 60 ML/BOTTLE PO SCH ×3 (05:50→17:02)
[2019-04-11] MEDS: SEVELAMER CARBONATE 800 MG TABLET PO SCH ×3 (08:34→16:36)
[2019-04-11] MEDS: FOLIC ACID 1 MG TABLET PO SCH (08:34)
[2019-04-11] MEDS: ASPIRIN EC 81 MG TABLET PO SCH (08:34)
[2019-04-11] MEDS: METOPROLOL SUCCINATE XL 100 MG TABLET PO SCH (08:34)
[2019-04-11] MEDS: ONDANSETRON 4 MG/2 ML VIAL IV PRN ×2 (08:34→15:01)
[2019-04-11] MEDS: PANTOPRAZOLE 40 MG TABLET PO SCH (08:34)
[2019-04-11] MEDS: DOCUSATE SODIUM 100 MG CAPSULE PO SCH ×2 (08:34→21:12)
[2019-04-11] MEDS: MULTIVITAMIN (CENTRUM) TABLET PO SCH (08:35)
[2019-04-11] MEDS: OMEGA 3 ACID ETHYL ESTERS 1 GM CAPSULE PO SCH ×2 (08:35→21:12)
[2019-04-11] MEDS: amLODIPine 5 MG TABLET PO SCH (08:35)
[2019-04-11] MEDS: EZETIMIBE 10 MG TABLET PO SCH (08:35)
[2019-04-11] MEDS: lisinopriL 5 MG TABLET PO SCH (08:35)
[2019-04-11] MEDS: ZINC OXIDE PASTE 113 GM TUBE TOP SCH ×2 (08:35→21:12)
[2019-04-11] MEDS: FUROSEMIDE 80 MG TABLET PO SCH (08:35)
[2019-04-11] MEDS: diphenhydrAMINE CAP 50 MG CAPSULE PO PRN ×3 (08:35→21:17)
[2019-04-11] MEDS: FERROUS SULFATE 325 MG TABLET PO SCH (08:35)
[2019-04-11] MEDS: VENLAFAXINE 37.5 MG TABLET PO SCH (08:35)
[2019-04-11] MEDS: traMADol 50 MG TABLET PO PRN ×2 (11:02→21:16)
[2019-04-11] MEDS: MEROPENEM 500 MG in SODIUM CHLORIDE 0.9% 100 ML IV SCH (16:36)
[2019-04-11] MEDS: VANCOMYCIN INJ 1,000 MG in SODIUM CHLORIDE 0.9% 250 ML IV SCH (16:36)
[2019-04-11] MEDS: ATORVASTATIN 10 MG TABLET PO SCH (21:12)
[2019-04-12] MEDS: VANCOMYCIN 50 MG/ML 60 ML/BOTTLE PO SCH ×3 (00:25→11:13)
[2019-04-12] MEDS: ALBUTEROL/IPRATROPIUM 3 ML NEB RESP TX SCH ×2 (00:30→07:31)
[2019-04-12] MEDS: diphenhydrAMINE CAP 50 MG CAPSULE PO PRN (01:54)
[2019-04-12] MEDS: ONDANSETRON 4 MG/2 ML VIAL IV PRN (03:20)
[2019-04-12] MEDS: LEVOTHYROXINE 200 MCG TABLET PO SCH (06:20)
[2019-04-12 09:28] VITALS: BP 165/112
[2019-04-12] MEDS: ASPIRIN EC 81 MG TABLET PO SCH (09:29)
[2019-04-12] MEDS: METOPROLOL SUCCINATE XL 100 MG TABLET PO SCH (09:29)
[2019-04-12] MEDS: FOLIC ACID 1 MG TABLET PO SCH (09:29)
[2019-04-12] MEDS: EZETIMIBE 10 MG TABLET PO SCH (09:29)
[2019-04-12] MEDS: SEVELAMER CARBONATE 800 MG TABLET PO SCH ×2 (09:29→11:13)
[2019-04-12] MEDS: OMEGA 3 ACID ETHYL ESTERS 1 GM CAPSULE PO SCH (09:29)
[2019-04-12] MEDS: lisinopriL 5 MG TABLET PO SCH (09:29)
[2019-04-12] MEDS: amLODIPine 5 MG TABLET PO SCH (09:30)
[2019-04-12] MEDS: PANTOPRAZOLE 40 MG TABLET PO SCH (09:30)
[2019-04-12] MEDS: FUROSEMIDE 80 MG TABLET PO SCH (09:30)
[2019-04-12] MEDS: VENLAFAXINE 37.5 MG TABLET PO SCH (09:30)
[2019-04-12] MEDS: MULTIVITAMIN (CENTRUM) TABLET PO SCH (09:30)
[2019-04-12] MEDS: DOCUSATE SODIUM 100 MG CAPSULE PO SCH (09:30)
[2019-04-12] MEDS: FERROUS SULFATE 325 MG TABLET PO SCH (09:30)
[2019-04-12] MEDS: ZINC OXIDE PASTE 113 GM TUBE TOP SCH (09:31)
== END 2019-04-12 11:47 | DRG 689 ==
LOC: EDUNIT# → EDBD → N.EDINP 09:07 → N.ED 09:07 → N.5E 12:05
PROVIDERS: ADMIT Internal Medicine; ATTEND Internal Medicine